=== PATIENT | male | born 1980 | race Caucasian/White ===

== ENCOUNTER 2022-10-14 10:53 | Emergency (ER) | payer MEDICARE, SELFPAY ==
[2022-10-14] VITALS (22 sets, daily range): BP systolic 125–164; BP diastolic 86–106; PULSE 88–104; RESP 20; TEMP 36.2; O2SAT 88–94; BMI 32.1
--- NOTE | 2022-10-14 11:33 | CRLHL7_ITS ---
For Patients: As a result of the Century Cures Act, medical imaging exams and procedure reports are released immediately into your electronic medical record. You may view this report before your referring provider. If you have questions, please contact your health care provider. INDICATION: Abdominal pain. TECHNIQUE: CT abdomen and pelvis acquired with 98 cc Isovue 370 IV contrast. COMPARISON: None. FINDINGS: Lower chest: Bibasilar ground-glass opacities, may reflect atelectasis, aspiration or infection. Trace bilateral pleural effusions. Liver: Hepatomegaly and hepatic steatosis. Mild sparing along the gallbladder fossa. No suspicious hepatic lesions identified. Gallbladder and bile ducts: Unremarkable. No stones or inflammation. No biliary dilatation. Pancreas: Unremarkable. No mass or inflammation. Spleen: Unremarkable. Normal in size. No masses. Adrenal glands: Unremarkable. No nodules. Kidneys: Unremarkable. No suspicious masses, stones, or hydronephrosis. GI tract: There is mild twisting and narrowing of a few small-bowel loops in the mid abdomen which may represent a site of internal hernia or adhesions. No bowel obstruction identified. Appendix is not visualized. Vasculature: Abdominal aorta is normal in caliber. Mesenteric arteries are patent. Lymph nodes: No lymphadenopathy. Peritoneum/Abdominal Wall: Small free fluid in the pelvis. No sign of mass or infiltration. No free air. Pelvis: Apparent thickening of the bladder wall, may be related to incomplete distention. Correlate with UA. Bones: Unremarkable for age. IMPRESSION: No acute intra-abdominal process identified. Mild twisting and narrowing of a few small-bowel loops in the mid abdomen may represent a site of internal hernia or adhesions. No bowel obstruction. Hepatomegaly with hepatic steatosis. Bibasilar ground-glass opacities may reflect atelectasis, aspiration or infection. Trace bilateral pleural effusions. Apparent thickening of the bladder wall may be related to incomplete distention. Correlate with UA. Please note that all CT scans at this facility use dose modulation, iterative reconstruction, and/or weight-based dosing when appropriate to reduce radiation dose to as low as reasonably achievable. Dictated by Emilia Rebolledo MD @ 10/14/2022 1:21:13 PM (Electronically Signed)
--- NOTE | 2022-10-14 11:35 | ED_ITS ---
HPI - Abdominal Pain General Chief Complaint: Abdominal Pain Stated Complaint: Abdominal pain Time Seen by Provider: 10/14/22 11:25 History of Present Illness HPI narrative: This 42-year-old male comes in with his father reporting abdominal pain that began yesterday. The pain is located in the mid abdomen and is constant. The pain was worse with movement and the bumps on the way here in the car were especially discomforting. He does not report any nausea or vomiting. He has had his appendix removed. He has autism. He has not had any fevers. Related Data Home Medications Medication Instructions Recorded Confirmed divalproex 500 mg tablet,extended 500 mg PO DAILY 10/14/22 10/14/22 release 24 hr fluvoxamine 100 mg tablet 150 mg PO BID 10/14/22 10/14/22 gabapentin 600 mg tablet 600 mg PO DAILY 10/14/22 10/14/22 lorazepam 1 mg tablet 1 mg PO PRN 10/14/22 risperidone 4 mg tablet 4 mg PO BID 10/14/22 10/14/22 Previous Rx's Medication Instructions Recorded ketorolac 10 mg tablet 10 mg PO Q8H 5 days #15 tabs 10/14/22 ondansetron HCl 4 mg tablet 4 mg PO Q6H #10 tabs 10/14/22 Allergies Allergy/AdvReac Type Severity Reaction Status Date / Time No Known Drug Allergies Allergy Verified 10/14/22 11:08 Review of Systems Status of ROS Reports: 10 or more systems reviewed and unremarkable except as noted in History and below Narrative Constitutional: No fevers, no weight gain or loss. Eyes: No discharge. No vision changes. HENT: No congestion, no sore throat, no ear pain. Cardiovascular: No chest pain, no palpitations. Respiratory: No shortness of breath, no wheezes, no cough. Gastrointestinal: No vomiting, no diarrhea. Mid abdominal pain which is constant and worse with movement. Genitourinary: No dysuria, no hematuria. Musculoskeletal: Normal range of motion. Skin: No rashes, no pruritis. Neurological: No dizziness, weakness, sensory change, speech change. Endo/Heme/Allergies: No bruising or bleeding. No polydipsia. Pysch: no suicidality, no anxiety, no insomnia. All other systems reviewed and are negative. PFSH PFSH Social History Smoking Status: Never smoker Do you use any of these nicotine containing products: None Second hand tobacco smoke exposure: No How often do you have a drink containing alcohol: never How often do you have six or more drinks on one occasion: Never AUDIT-C Alcohol total score: 0 Non-prescribed substance use: denies use service: No Exam Narrative: Exam Narrative: Constitutional: Well-developed, well-nourished, no acute distress. HEENT: Normocephalic, atraumatic. Neck: Normal range of motion. Nontender. Supple. Heart: Regular. No murmurs. Normal rate. Intact distal pulses. Lungs: Clear to auscultation. No chest discomfort. No wheezes, rhonchi, or rales. Abdomen: Decreased bowel sounds. Diffuse tenderness in the mid abdomen. No obvious rebound tenderness. Genitalia: Deferred. Back: No midline tenderness. Normal range of motion. Extremities: Normal range of motion. No injury. Skin: Intact. No rash. Warm. No erythema or pallor. Neurologic: No altered sensation. No weakness. Alert and oriented. Psychiatric: No suicidality. No anxiety or depression. No insomnia. Nursing notes and vitals signs are reviewed. Const: Vital Signs, click to edit/add: Vital Signs - 24 hr 10/14/22 11:04 10/14/22 11:53 10/14/22 11:53 Temperature 97.2 F L Pulse Rate [Right Pulse Oximeter] 104 H Respiratory Rate 20 Blood Pressure [Ri ght Upper Arm] 143/90 H Pulse Oximetry 93 89 89 Oxygen Delivery Me thod Room Air Room Air Oxygen Flow Rate 2 Course Vital Signs Vital signs: Initial Vital Signs Temperature 97.2 F L 10/14/22 11:04 Temperature Source Temporal Artery Scan 10/14/22 11:04 Pulse Rate 104 H 10/14/22 11:04 Respiratory Rate 20 10/14/22 11:04 Blood Pressure 143/90 H 10/14/22 11:04 Blood Pressure Mean 107 10/14/22 11:04 Blood Pressure Position Sitting 10/14/22 11:04 Pulse Oximetry 93 10/14/22 11:04 Oxygen Delivery Method 10/14/22 11:04 Vital Signs Temperature 97.2 F L 10/14/22 11:04 Pulse Rate 104 H 10/14/22 11:04 Respiratory Rate 20 10/14/22 11:04 Blood Pressure 143/90 H 10/14/22 11:04 Pulse Oximetry 93 10/14/22 11:04 Oxygen Delivery Method 10/14/22 11:04 Temperature 97.2 F L 10/14/22 11:04 Pulse Rate 104 H 10/14/22 11:04 Respiratory Rate 20 10/14/22 11:04 Blood Pressure 143/90 H 10/14/22 11:04 Pulse Oximetry 89 10/14/22 11:53 Oxygen Delivery Method 10/14/22 11:53 Oxygen Flow Rate 2 10/14/22 11:53 MDM - Abdominal Pain MDM Narrative Medical decision making narrative: This 42-year-old comes in with abdominal pain. He did appear to be in significant discomfort. An IV was established where the patient did receive an IV dose of Dilaudid 0.5 mg. This brought some relief to his pain. CT imaging of the abdomen and pelvis shows no acute findings except there is gaseous distension of his bowels in the mid abdomen where he is describing his pain. Radiology report suggested possibility of an internal hernia. I did discuss this with the surgeon on-call who stated this does not seem likely. The patient has had a surgery to his abdomen, namely an appendectomy. He may be having some adhesions related to this. At the time of discharge the patient appears safe for outpatient management. The treatment plan is reviewed along with written and verbal return precautions. Reasons to return and the importance of close followup were also reviewed. I recommended using [id number] medicines to stimulate his bowels to move. He did received prescription for Toradol and Zofran. Lab Data Labs: Lab Results 10/14/22 10/14/22 Range/Units 11:25 11:25 WBC 10.53 (4.50-11.00) K/uL RBC 4.58 (4.30-5.90) m/uL Hgb 13.4 L (13.5-17.5) gm/dL Hct 38.8 (37.0-53.0) % MCV 85 (80-100) fL MCH 29 (26-34) pg MCHC 35 (32-36) gm/dL RDW Coeff of Noe 12.7 (11.5-15.5) % Plt Count 216 (140-440) K/uL Neut % (Auto) 77.2 H (42.0-72.0) % Lymph % (Auto) 9.1 L (20-44) % [place] % (Auto) 13.0 H (0.0-11.0) % Eos % (Auto) 0.3 (0.0-7.0) % Baso % (Auto) 0.3 (0.0-3.0) % Neut # (Auto) 8.10 H (1.7-7.0) K/uL Lymph # (Auto) 1.00 (0.90-2.90) K/uL [place] # (Auto) 1.40 H (0.00-0.90) K/UL Eos # (Auto) 0.03 (0.00-0.50) K/uL Baso # (Auto) 0.03 (0.00-0.30) K/uL Sodium 135 (135-149) mmol/L Potassium 4.3 (3.6-5.1) mmol/L Chloride 98 (96-114) mmol/L Carbon Dioxide 27 (20-32) mmol/L BUN 10 (5-24) mg/dL Creatinine 0.6 (0.5-1.5) mg/dL Estimated Creat Clear 169.08 Estimated GFR 123 ml/min Glucose 202 H (60-115) mg/dL Calcium 9.4 (8.4-10.6) mg/dL Total Bilirubin 0.6 (0.1-1.5) mg/dL Direct Bilirubin 0.2 (0.0-0.5) mg/dL AST 24 (12-35) U/L ALT 31 (4-50) U/L Alkaline Phosphatase 52 (40-150) U/L Total Protein 8.1 (6.0-8.3) g/dL Albumin 4.6 (3.3-5.0) g/dL Lipase 67 (23-300) U/L Imaging Data CT scan - abdomen: Radiologist's impression: No acute intra-abdominal process identified. Mild twisting and narrowing of a few small-bowel loops in the mid abdomen may represent a site of internal hernia or adhesions. No bowel obstruction. Hepatomegaly with hepatic steatosis. Bibasilar ground-glass opacities may reflect atelectasis, aspiration or infection. Trace bilateral pleural effusions. Apparent thickening of the bladder wall may be related to incomplete distention. Correlate with UA. Discharge Plan Discharge Clinical Impression: Abdominal pain Patient Disposition: Home w/ Parent or Adult Condition: Stable Additional Instructions: Take medication as needed and indicated. Use [id number] medicines such as Dulcolax, MiraLax, Metamucil, or other meds to promote bowel movement. Follow up with MD or return if worsening. Prescriptions: New ondansetron HCl 4 mg tablet 4 mg PO Q6H Qty: 10 0RF ketorolac 10 mg tablet 10 mg PO Q8H 5 Days Qty: 15 0RF No Action risperidone 4 mg tablet 4 mg PO BID Label Comments: TAKE ONE TABLET BY MOUTH TWICE DAILY lorazepam 1 mg tablet 1 mg PO PRN Label Comments: TAKE ONE TABLET BY MOUTH DAILY NEEDED gabapentin 600 mg tablet 600 mg PO DAILY Label Comments: TAKE ONE TABLET BY MOUTH ONE TIME DAILY fluvoxamine 100 mg tablet 150 mg PO BID Label Comments: take 1.5 tablets by mouth twice daily. divalproex 500 mg tablet extended release 24 hr 500 mg PO DAILY Label Comments: TAKE TWO TABLETS BY MOUTH DAILY IN THE MORNING Follow Up/Referrals: Jass La MD [Primary Care Provider] - Stand Alone Forms: [employer] Info Instructions
[2022-10-14 11:44] LABS: Basophils Absolute Auto 0.03 K/uL (0.00-0.30); Basophils Percent Auto 0.3 % (0.0-3.0); Eosinophils Absolute Auto 0.03 K/uL (0.00-0.50); Eosinophils Percent Auto 0.3 % (0.0-7.0); Hematocrit 38.8 % (37.0-53.0); Hemoglobin* 13.4 gm/dL (13.5-17.5); Immature Granulocytes Abs Auto 0.01 K/uL (0.00-0.30); Immature Granulocytes Pct Auto 0.1 %; Lymphocytes Percent Auto 9.1 % (20-44); Mean Corpuscular HGB Conc 35 gm/dL (32-36); Mean Corpuscular Hemoglobin 29 pg (26-34); Mean Corpuscular Volume 85 fL (80-100); Neutrophils Percent Auto 77.2 % (42.0-72.0); Platelet Count* 216 K/uL (140-440); RDW Coefficient of Variation % 12.7 % (11.5-15.5); Red Blood Count 4.58 m/uL (4.30-5.90); White Blood Count* 10.53 K/uL (4.50-11.00)
[2022-10-14] MEDS: ONDANSETRON 2 MG/ML inj 4 MG IVP (11:50)
[2022-10-14] MEDS: HYDROmorphone 0.5 mg/0.5 ml inj IVP (11:50)
[2022-10-14 12:00] LABS: Albumin* 4.6 g/dL (3.3-5.0); Chloride* 98 mmol/L (96-114)
[2022-10-14 12:01] LABS: Potassium* 4.3 mmol/L (3.6-5.1); Sodium* 135 mmol/L (135-149)
[2022-10-14 12:03] LABS: Alkaline Phosphatase* 52 U/L (40-150); Aspartate Amino Transferase* 24 U/L (12-35); Bilirubin Direct* 0.2 mg/dL (0.0-0.5); Bilirubin Total* 0.6 mg/dL (0.1-1.5); Blood Urea Nitrogen* 10 mg/dL (5-24); Calcium* 9.4 mg/dL (8.4-10.6); Carbon Dioxide* 27 mmol/L (20-32); Creatinine* 0.6 mg/dL (0.5-1.5); Est. Creatinine Clearance* 169.08; Estimated Glomerular Filt Rate 123 ml/min; Glucose* 202 mg/dL (60-115); Lipase* 67 U/L (23-300); Total Protein* 8.1 g/dL (6.0-8.3)
[2022-10-14 12:04] LABS: Alanine Aminotransferase* 31 U/L (4-50)
[2022-10-14 12:14] LABS: Slide Review Reflex No
== END 2022-10-14 14:38 | disposition home or self-care (01) ==
PROVIDERS: Emergency Provider Emergency Medicine Emergency Medical Services; PCP Family Medicine
DX: R10.9 Unspecified abdominal pain (principal)
CPT/HCPCS: 36415; 74177; 80048; 80076; 83690; 85025; 94761; 99284; J1170; J2405; Q9967

== ENCOUNTER 2022-10-15 19:39 | Inpatient (IN) | payer MEDICARE, SELFPAY ==
[2022-10-15] VITALS (8 sets, daily range): BP systolic 142–180; BP diastolic 78–107; PULSE 84–114; RESP 24–30; TEMP 36.8–36.9; O2SAT 87–96; BMI 31.4
--- NOTE | 2022-10-15 20:09 | CRLHL7_ITS ---
For Patients: As a result of the Century Cures Act, medical imaging exams and procedure reports are released immediately into your electronic medical record. You may view this report before your referring provider. If you have questions, please contact your health care provider. INDICATION: Hypoxia, distended abdomen. TECHNIQUE: CT chest PE, abdomen and pelvis acquired with 95 cc Isovue 370 IV contrast. COMPARISON: CT abdomen and pelvis 10/14/2022. FINDINGS: CHEST: Cardiovascular structures: Heart size is normal. Thoracic aorta and main pulmonary artery are normal in caliber. No sign of pulmonary embolism. Mediastinum and alexey: No mass or adenopathy. Lungs and pleura: Trace bilateral pleural effusions. Bibasilar streaky opacities, favored to represent atelectasis. Chest wall and axilla: No mass or adenopathy. Bones: No suspicious bone lesions. Unremarkable for age. ABDOMEN AND PELVIS: Liver: Hepatomegaly with hepatic steatosis. Gallbladder and bile ducts: Unremarkable. Pancreas: Unremarkable. Spleen: Unremarkable. Adrenal glands: Unremarkable. Kidneys: Unremarkable. GI tract: Unremarkable. Vascular structures: Unremarkable. Lymph nodes: Unremarkable. Miscellaneous: Trace free fluid in the pelvis. No free air. Pelvic Organs: Unremarkable. Bones: No suspicious bone lesions. Unremarkable for age. IMPRESSION: 1. No evidence of pulmonary embolism. 2. Trace bilateral pleural effusions and bibasilar atelectasis. 3. No acute abnormality of the abdomen or pelvis. Please note that all CT scans at this facility use dose modulation, iterative reconstruction, and/or weight-based dosing when appropriate to reduce radiation dose to as low as reasonably achievable. Dictated by Jeremiah Finch MD @ 10/15/2022 10:03:09 PM (Electronically Signed)
--- NOTE | 2022-10-15 20:11 | PC.NURSE ---
pt having difficulty breathing through nares for nasal cannula. oxymask on, pt tolerating well. sats up to 92%
--- NOTE | 2022-10-15 20:26 | ED.GENADULT ---
HPI - General Adult General Date Seen: 10/15/22 Chief complaint: Fever Stated complaint: Low O2 level and fever Time Seen by Provider: 10/15/22 19:59 Source: patient and family Mode of arrival: ambulatory Limitations: no limitations History of Present Illness HPI narrative: Patient is a 42-year-old male with underlying autism here with mother for re-evaluation of abdominal distension, pain, and hypoxia. He was seen yesterday, had a CT scan, there was a question of possible internal hernia, consultation with General surgery, felt likely not to be a hernia and he was discharged home. He was mildly hypoxic yesterday in the upper 80s, Mom says he is worsening today and was 83% at home. He is verbal, but significant paucity of speech. He does answer questions appropriately although it is difficult to talk to him as mother tends to interrupt and answer all questions for him. However, if I am decisive about forcing her to let him answer questions, he seems to complain of mid and upper abdominal pain, he does not have chest pain and has not been coughing. He does not feel significantly short of breath. He denies leg pain. He has not had vomiting, but has not wanted to eat. Mom notes of fever up to 101.6 at home earlier. She notes also that he has a very high pain threshold. He has had a previous appendectomy, no other abdominal surgeries reported. Related Data Home Medications Medication Instructions Recorded Confirmed divalproex 500 mg tablet,extended 500 mg PO DAILY 10/14/22 10/15/22 release 24 hr fluvoxamine 100 mg tablet 150 mg PO BID 10/14/22 10/15/22 gabapentin 600 mg tablet 600 mg PO DAILY 10/14/22 10/15/22 lorazepam 1 mg tablet 1 mg PO DAILY PRN 10/14/22 10/15/22 risperidone 4 mg tablet 4 mg PO BID 10/14/22 10/15/22 Previous Rx's Medication Instructions Recorded ketorolac 10 mg tablet 10 mg PO Q8H 5 days #15 tabs 10/14/22 ondansetron HCl 4 mg tablet 4 mg PO Q6H #10 tabs 10/14/22 Allergies Allergy/AdvReac Type Severity Reaction Status Date / Time No Known Drug Allergies Allergy Verified 10/15/22 19:51 Review of Systems Status of ROS: Reports: 6 or more systems reviewed and unremarkable except as noted in History and below [facility] Social History Smoking Status: Never smoker Do you use any of these nicotine containing products: None Second hand tobacco smoke exposure: No How often do you have a drink containing alcohol: never How often do you have six or more drinks on one occasion: Never AUDIT-C Alcohol total score: 0 Non-prescribed substance use: denies use service: No Exam Narrative: Exam Narrative: Vital signs as noted above. In general, an alert, slightly diaphoretic male. Head: Normocephalic, atraumatic. Eyes: Pupils are equal reactive. Extraocular movements are full. Conjunctivae are normal. ENT: Mucous membranes are moist. Neck: Supple without lymphadenopathy. Heart: Tachycardic and regular. No obvious murmur. Lungs: Clear anteriorly, he did not feel he could sit up for me to listen in the back. No increased work of breathing. Abdomen: Abdomen is distended. Soft, bowel sounds are present. He winces with palpation in the epigastrium and left upper quadrant, confirms that it is painful there. Denies tenderness in the other areas of the abdomen. No guarding, no apparent rebound tenderness. Extremities: Well perfused. No edema. No calf tenderness. Pulses intact. Neurologic: Patient is alert and oriented to person and place. Speech is fluent. Face is symmetric. Moves all extremities equally. Affect: Flat, consistent with autism. Skin: Warm and dry. Well perfused. Const: Vital Signs, click to edit/add: Vital Signs - 24 hr 10/15/22 19:45 10/15/22 20:30 10/15/22 20:30 Temperature 98.2 F Pulse Rate [Right Pulse Oximeter] 114 H Respiratory Rate 28 H Blood Pressure [Ri ght Upper Arm] 151/90 H Pulse Oximetry 87 L 92 93 Oxygen Delivery Me thod Room Air OxyMask Oxygen Flow Rate 10 10/15/22 20:45 10/15/22 21:00 10/15/22 21:26 Temperature 98.4 F 98.4 F Pulse Rate [Right Pulse Oximeter] 89 89 90 Respiratory Rate 24 28 H 26 H Blood Pressure [Ri ght Upper Arm] 153/88 H 153/90 H 142/78 H Pulse Oximetry 93 93 93 Oxygen Delivery Me thod OxyMask OxyMask OxyMask Oxygen Flow Rate 10 10 10/15/22 20:30 10/15/22 22:52 Temperature 98.4 F Pulse Rate [Right Pulse Oximeter] 98 Respiratory Rate 30 H Blood Pressure [Ri ght Upper Arm] 180/87 H Pulse Oximetry 88 93 Oxygen Delivery Me thod Room Air OxyMask Oxygen Flow Rate Documenting provider has reviewed patient's vital signs: yes Course Course Hospital Course: An IV is established, I have ordered a L of normal saline, morphine, Toradol. Records reviewed from yesterday including the CT scan. I am going to do a CT scan of both the chest as well as the abdomen today to reassess the area of questionable internal hernia from yesterday, rule out obstruction, other possible etiologies such as diverticulitis, colitis, cholecystitis, pancreatitis, perforated viscus, as well as assess the lungs. It may be that he is hypoxic secondary to pressure on the diaphragm limiting his chest expansion, but will go ahead and assess those areas of ground-glass infiltrate, rule out PE or any other cause for his rather significant hypoxia today. Labs are interestingly very normal. His white blood cell count is 10.2 with a mild left shift of 81%. Hemoglobin is 12.8. Platelets are normal. His gas shows a pH of 7 point 4 5, pCO2 is normal today at 44, R was 30. Electrolytes are unremarkable aside from a mildly low sodium of 132. CO2 is normal at 29, BUN is 11, creatinine 0.7. Glucose is 167. Lactate is normal at 1.1. His CRP is significantly elevated at 22. LFTs are entirely normal however. Troponin is less than 0.1. BNP is normal at 129. Lipase is normal at 41. Urinalysis was not obtained until quite a bit later but did ultimately returned essentially normal with 5-10 red cells 0-2 white cells. No significant ketones. I reviewed the CT scan of his chest, abdomen and pelvis. I did not see any significant findings. He did have a little bit of atelectasis, fluid at the bases of both lungs, but I did not see any significant lobar pneumonia. I did not see evidence of significant central PE. In the abdomen I did not see evidence of obstruction or free air, the gallbladder looked normal, I did not see significant inflammatory changes. Ultimately the chest CT was read as showing no evidence of PE, trace bilateral pleural effusions and bibasilar atelectasis. The abdominal CT was read as no acute abnormality of the abdomen or pelvis. The previously seen possible area of internal hernia is no longer observed. Repeat evaluation reveals that after medications he says his abdomen feels better. He is oxygenating well on an OxyMask, but off oxygen continues to be hypoxic. His lungs are clear, but he is noted to have some belly breathing. I talked with Dr. Au about this patient who was able to review previous records. He did have an admission to [facility] last year and had hypoxia at that time noted and there was conversation about needing possible CPAP or BiPAP at home, he did have an echo done which was normal. Sleep study was recommended but it does not sound like that was ever done. Mom says he does not typically have hypoxia during the day at home, that today's hypoxia is new. Etiology of the hypoxia is a little unclear. We have successfully ruled out PE, pneumonia, congestive heart failure, acute coronary syndrome. I do not hear significant bronchospasm. It does appear as if he may have some obesity hypoventilation at bases in line and perhaps that is contributing. It may be that he is hypoventilating further due to splinting from his abdominal pain. His last bowel movement was Friday, they did tried some medications for constipation yesterday and he did not have a bowel movement, but he has not had much to eat, and on CT it does not look like he has a significant stool burden. I do not think his symptoms are related to constipation. It is possible that he has gastritis or an ulcer, it is also possible that this could be biliary colic and a HIDA scan would be helpful. For right now, he continues to look somewhat uncomfortable despite the fact that he says his pain is relieved. His abdomen right now is nontender however. We got him up to try and ambulate, his oxygen saturations were stable at about 86% but he became tachycardic and shaky and had to sit down. Plan at this time is to admit him to the hospital for observation, oxygen as needed, I ordered some Protonix IV as well. We will see what additional GI studies might be helpful for further evaluation of his abdominal pain. Vital Signs Vital signs: Initial Vital Signs Temperature 98.2 F 10/15/22 19:45 Temperature Source Temporal Artery Scan 03/07/23 19:45 Pulse Rate 114 H 10/15/22 19:45 Respiratory Rate 28 H 10/15/22 19:45 Blood Pressure 151/90 H 10/15/22 19:45 Blood Pressure Mean 110 10/15/22 19:45 Blood Pressure Position Sitting 10/15/22 19:45 Pulse Oximetry 87 L 10/15/22 19:45 Oxygen Delivery Method 10/15/22 19:45 Vital Signs Temperature 98.2 F 10/15/22 19:45 Pulse Rate 114 H 10/15/22 19:45 Respiratory Rate 28 H 10/15/22 19:45 Blood Pressure 151/90 H 10/15/22 19:45 Pulse Oximetry 87 L 10/15/22 19:45 Oxygen Delivery Method 10/15/22 19:45 Temperature 98.4 F 10/15/22 22:52 Pulse Rate 98 10/15/22 22:52 Respiratory Rate 30 H 10/15/22 22:52 Blood Pressure 180/87 H 10/15/22 22:52 Pulse Oximetry 93 10/15/22 22:52 Oxygen Delivery Method 10/15/22 22:52 Oxygen Flow Rate 10 10/15/22 21:00 Medical Decision Making Lab Data Labs: Lab Results 10/15/22 10/15/22 10/15/22 Range/Units 20:30 20:30 20:30 WBC 10.23 (4.50-11.00) K/uL RBC 4.38 (4.30-5.90) m/uL Hgb 12.8 L (13.5-17.5) gm/dL Hct 37.2 (37.0-53.0) % MCV 85 (80-100) fL MCH 29 (26-34) pg MCHC 34 (32-36) gm/dL RDW Coeff of Noe 12.8 (11.5-15.5) % Plt Count 217 (140-440) K/uL Neut % (Auto) 80.7 H (42.0-72.0) % Lymph % (Auto) 4.8 L (20-44) % Moody % (Auto) 13.9 H (0.0-11.0) % Eos % (Auto) 0.0 (0.0-7.0) % Baso % (Auto) 0.2 (0.0-3.0) % Neut # (Auto) 8.30 H (1.7-7.0) K/uL Lymph # (Auto) 0.50 L (0.90-2.90) K/uL Moody # (Auto) 1.40 H (0.00-0.90) K/UL Eos # (Auto) 0.00 (0.00-0.50) K/uL Baso # (Auto) 0.02 (0.00-0.30) K/uL VBG pH (7.32-7.43) VBG pCO2 (40-50) mmHG VBG pO2 (25-47) mmHG VBG HCO3 (21-28) mmol/L Sodium 132 L (135-149) mmol/L Potassium 3.8 (3.6-5.1) mmol/L Chloride 97 (96-114) mmol/L Carbon Dioxide 29 (20-32) mmol/L BUN 11 (5-24) mg/dL Creatinine 0.7 (0.5-1.5) mg/dL Estimated Creat Clear 144.92 Estimated GFR 117 ml/min Glucose 167 H (60-115) mg/dL Lactate 1.1 (0.5-1.9) mmol/L Calcium 9.1 (8.4-10.6) mg/dL Total Bilirubin 0.7 (0.1-1.5) mg/dL Direct Bilirubin 0.2 (0.0-0.5) mg/dL AST 29 (12-35) U/L ALT 35 (4-50) U/L Alkaline Phosphatase 56 (40-150) U/L Troponin I (0.01-0.04) ng/mL C-Reactive Protein 22.5 H (0.5-1.0) mg/dL NT-Pro-B Natriuret Pep 129 pg/mL Total Protein 7.8 (6.0-8.3) g/dL Albumin 4.2 (3.3-5.0) g/dL Lipase 41 (23-300) U/L Urine Color (Yellow) Urine Appearance (Clear) Urine pH (5.0-8.5) Ur Specific Marrero (1.000-1.030) Urine Protein (Negative) Urine Glucose (UA) (Negative) Urine Ketones (Negative) Urine Blood (Negative) Urine Nitrite (Negative) Urine Bilirubin (Negative) Urine Urobilinogen (0.2-1.0) Ur Leukocyte Esterase (Negative) Urine RBC (0-2) Urine WBC (0-5) Ur Squamous Epith Cells (None-Few) Urine Bacteria (None) SARS-CoV-2 (PCR) (Negative) 10/15/22 10/15/22 10/15/22 Range/Units 20:30 20:30 20:35 WBC (4.50-11.00) K/uL RBC (4.30-5.90) m/uL Hgb (13.5-17.5) gm/dL Hct (37.0-53.0) % MCV (80-100) fL MCH (26-34) pg MCHC (32-36) gm/dL RDW Coeff of Noe (11.5-15.5) % Plt Count (140-440) K/uL Neut % (Auto) (42.0-72.0) % Lymph % (Auto) (20-44) % Moody % (Auto) (0.0-11.0) % Eos % (Auto) (0.0-7.0) % Baso % (Auto) (0.0-3.0) % Neut # (Auto) (1.7-7.0) K/uL Lymph # (Auto) (0.90-2.90) K/uL Moody # (Auto) (0.00-0.90) K/UL Eos # (Auto) (0.00-0.50) K/uL Baso # (Auto) (0.00-0.30) K/uL VBG pH 7.447 H (7.32-7.43) VBG pCO2 44 (40-50) mmHG VBG pO2 59.1 H (25-47) mmHG VBG HCO3 30 H (21-28) mmol/L Sodium (135-149) mmol/L Potassium (3.6-5.1) mmol/L Chloride (96-114) mmol/L Carbon Dioxide (20-32) mmol/L BUN (5-24) mg/dL Creatinine (0.5-1.5) mg/dL Estimated Creat Clear Estimated GFR ml/min Glucose (60-115) mg/dL Lactate (0.5-1.9) mmol/L Calcium (8.4-10.6) mg/dL Total Bilirubin (0.1-1.5) mg/dL Direct Bilirubin (0.0-0.5) mg/dL AST (12-35) U/L ALT (4-50) U/L Alkaline Phosphatase (40-150) U/L Troponin I < 0.01 L (0.01-0.04) ng/mL C-Reactive Protein (0.5-1.0) mg/dL NT-Pro-B Natriuret Pep pg/mL Total Protein (6.0-8.3) g/dL Albumin (3.3-5.0) g/dL Lipase (23-300) U/L Urine Color (Yellow) Urine Appearance (Clear) Urine pH (5.0-8.5) Ur Specific Marrero (1.000-1.030) Urine Protein (Negative) Urine Glucose (UA) (Negative) Urine Ketones (Negative) Urine Blood (Negative) Urine Nitrite (Negative) Urine Bilirubin (Negative) Urine Urobilinogen (0.2-1.0) Ur Leukocyte Esterase (Negative) Urine RBC (0-2) Urine WBC (0-5) Ur Squamous Epith Cells (None-Few) Urine Bacteria (None) SARS-CoV-2 (PCR) Negative SARS-CoV-2 (Negative) 10/15/22 Range/Units 22:23 WBC (4.50-11.00) K/uL RBC (4.30-5.90) m/uL Hgb (13.5-17.5) gm/dL Hct (37.0-53.0) % MCV (80-100) fL MCH (26-34) pg MCHC (32-36) gm/dL RDW Coeff of Noe (11.5-15.5) % Plt Count (140-440) K/uL Neut % (Auto) (42.0-72.0) % Lymph % (Auto) (20-44) % Moody % (Auto) (0.0-11.0) % Eos % (Auto) (0.0-7.0) % Baso % (Auto) (0.0-3.0) % Neut # (Auto) (1.7-7.0) K/uL Lymph # (Auto) (0.90-2.90) K/uL Moody # (Auto) (0.00-0.90) K/UL Eos # (Auto) (0.00-0.50) K/uL Baso # (Auto) (0.00-0.30) K/uL VBG pH (7.32-7.43) VBG pCO2 (40-50) mmHG VBG pO2 (25-47) mmHG VBG HCO3 (21-28) mmol/L Sodium (135-149) mmol/L Potassium (3.6-5.1) mmol/L Chloride (96-114) mmol/L Carbon Dioxide (20-32) mmol/L BUN (5-24) mg/dL Creatinine (0.5-1.5) mg/dL Estimated Creat Clear Estimated GFR ml/min Glucose (60-115) mg/dL Lactate (0.5-1.9) mmol/L Calcium (8.4-10.6) mg/dL Total Bilirubin (0.1-1.5) mg/dL Direct Bilirubin (0.0-0.5) mg/dL AST (12-35) U/L ALT (4-50) U/L Alkaline Phosphatase (40-150) U/L Troponin I (0.01-0.04) ng/mL C-Reactive Protein (0.5-1.0) mg/dL NT-Pro-B Natriuret Pep pg/mL Total Protein (6.0-8.3) g/dL Albumin (3.3-5.0) g/dL Lipase (23-300) U/L Urine Color Yellow (Yellow) Urine Appearance Slightly Cloudy A (Clear) Urine pH 6.0 (5.0-8.5) Ur Specific Marrero 1.010 (1.000-1.030) Urine Protein 1+ A (Negative) Urine Glucose (UA) Negative (Negative) Urine Ketones Negative (Negative) Urine Blood 2+ A (Negative) Urine Nitrite Negative (Negative) Urine Bilirubin Negative (Negative) Urine Urobilinogen 1.0 (0.2-1.0) Ur Leukocyte Esterase Negative (Negative) Urine RBC 5-10 A (0-2) Urine WBC 0-2 (0-5) Ur Squamous Epith Cells Few (None-Few) Urine Bacteria None (None) SARS-CoV-2 (PCR) (Negative) Discharge Plan Discharge Clinical Impression: Hypoxia, Abdominal pain Patient Disposition: Admitted As Inpatient Condition: Improved
[2022-10-15] MEDS: 0.9 % SODIUM CHLORIDE 1000 ml 1,000 ML IV (20:35)
[2022-10-15] MEDS: KETOROLAC 15 MG/ML inj IVP (20:35)
[2022-10-15] MEDS: MORPHINE 4 MG/ML INJ IVP (20:35)
[2022-10-15 20:45] LABS: HCO3 VBG 30 mmol/L (21-28); PCO2 VBG 44 mmHG (40-50); PO2 VBG 59.1 mmHG (25-47); pH VBG 7.447 (7.32-7.43)
[2022-10-15 20:46] LABS: Basophils Absolute Auto 0.02 K/uL (0.00-0.30); Basophils Percent Auto 0.2 % (0.0-3.0); Hematocrit 37.2 % (37.0-53.0); Hemoglobin* 12.8 gm/dL (13.5-17.5); Immature Granulocytes Abs Auto 0.04 K/uL (0.00-0.30); Immature Granulocytes Pct Auto 0.4 %; Lymphocytes Percent Auto 4.8 % (20-44); Mean Corpuscular HGB Conc 34 gm/dL (32-36); Mean Corpuscular Hemoglobin 29 pg (26-34); Mean Corpuscular Volume 85 fL (80-100); Monocytes Percent Auto 13.9 % (0.0-11.0); Neutrophils Percent Auto 80.7 % (42.0-72.0); Platelet Count* 217 K/uL (140-440); RDW Coefficient of Variation % 12.8 % (11.5-15.5); Red Blood Count 4.38 m/uL (4.30-5.90); White Blood Count* 10.23 K/uL (4.50-11.00)
[2022-10-15 20:47] LABS: Lactate* 1.1 mmol/L (0.5-1.9)
[2022-10-15 20:48] LABS: Slide Review Reflex No
[2022-10-15 21:04] LABS: Albumin* 4.2 g/dL (3.3-5.0); Chloride* 97 mmol/L (96-114); Potassium* 3.8 mmol/L (3.6-5.1); Sodium* 132 mmol/L (135-149)
[2022-10-15 21:06] LABS: Creatinine* 0.7 mg/dL (0.5-1.5); Est. Creatinine Clearance* 144.92; Estimated Glomerular Filt Rate 117 ml/min
[2022-10-15 21:07] LABS: Alanine Aminotransferase* 35 U/L (4-50); Alkaline Phosphatase* 56 U/L (40-150); Aspartate Amino Transferase* 29 U/L (12-35); Bilirubin Direct* 0.2 mg/dL (0.0-0.5); Bilirubin Total* 0.7 mg/dL (0.1-1.5); Blood Urea Nitrogen* 11 mg/dL (5-24); Calcium* 9.1 mg/dL (8.4-10.6); Carbon Dioxide* 29 mmol/L (20-32); Glucose* 167 mg/dL (60-115); Lipase* 41 U/L (23-300); Total Protein* 7.8 g/dL (6.0-8.3)
[2022-10-15 21:18] LABS: NT Pro B Type NatriureticPept* 129 pg/mL
[2022-10-15 21:23] LABS: C Reactive Protein* 22.5 mg/dL (0.5-1.0)
[2022-10-15 21:24] LABS: SARS PCR* Negative SARS-CoV-2 (Negative)
--- NOTE | 2022-10-15 21:41 | PC.NURSE ---
Returned from CT, mother at bedside. temp recheck as pt diaphoretic was 98.4 oral.
--- NOTE | 2022-10-15 22:30 | PC.NURSE ---
urine sent to lab. pt resting, mother at bedside. pt denies pain currently, still tachypneic, resp rate 28. oxygen off per physician order. will reassess oxygen status while ambulating, pulse ox.will continue to monitor pt.
[2022-10-15 22:31] LABS: Appearance Urine Slightly Cloudy (Clear); Bilirubin Urine Negative (Negative); Blood Urine 2+ (Negative); Color Urine Yellow (Yellow); Glucose Urine Negative (Negative); Ketones Urine Negative (Negative); Leukocyte Esterase Urine Negative (Negative); Nitrite Urine Negative (Negative); Protein Urine 1+ (Negative)
[2022-10-15 22:42] LABS: Troponin I* < 0.01 ng/mL (0.01-0.04)
--- NOTE | 2022-10-15 22:50 | PC.NURSE ---
Addendum entered by Amanda Merrill RN 10/15/22 22:54: while up walking heart rate up to 118-120. Original Note: pt up to walk around ED off oxygen. Pulse ox began at 88% on room air, dropped to 85-86% while ambulating. Pt requested to sit, wheelchair back to room with oxygen per oxymask at 10L. Pt respiratory rate 40s. Once settled back into room, oxygen sats up to 93% on oxymask, respiratory rate continues to be in the 30s. physician informed.
[2022-10-15 22:51] LABS: Squamous Epithelial Cell Urine Few (None-Few); WBC Urine 0-2 (0-5)
--- NOTE | 2022-10-15 22:56 | PC.NURSE ---
pts mother states she is concerned as to plan of care, and when are we going to do something about his low oxygen? Physician informed, informed pts mother physician will be in soon to explain plan of care.
[2022-10-15] MEDS: PANTOPRAZOLE SODIUM 40 MG INJ IVP (23:07)
--- NOTE | 2022-10-15 23:13 | PC.NURSE ---
admitting physician in with pt and pts mother.
--- NOTE | 2022-10-15 23:20 | PM.IMHP1 ---
Hospitalist- H&P: HPI History of Present Illness Date Seen: 10/15/22 Chief complaint: Low O2 level and fever Narrative: Chavo Baca is a 42 year old male with autism and bipolar disorder admitted through the emergency department with 2 day history of abdominal pain and anorexia and a 1 day history of fever and hypoxia. Patient gives limited history. History is primarily obtained from his mother. On Friday he when out to dinner. After dinner he had a bowel movement which was apparently normal and then complained of right upper quadrant abdominal pain. Since that time he has continued to report right upper quadrant or epigastric abdominal pain intermittently. He has not been eating much in the last 2 days. Initially his vital signs, obtained by his mother, were normal. Today she noted his oxygen saturations were in the mid 80s and he was breathing harder and tachycardic. He had a temperature at home of 101.6 F. Because of that she brought him to the emergency room. He has not had any other respiratory symptoms. He has not had significant cough. He is not complaining of chest pain. He has no previous history of asthma. He does not smoke. No chronic lung disease. Prior to Friday he has not had any gastrointestinal symptoms or problems. He has a remote history of an appendectomy. He has not had vomiting or diarrhea. Apparently normal bowel movement on Friday and none since that time. He was seen in our emergency department yesterday with CT abdomen and pelvis which was normal. He is treated with laxatives which have not caused him to have another bowel movement. He has no urinary problems that he is reporting. He was hospitalized 1 year ago at [facility]. At that time he was having hypoxic and hypercapnic respiratory failure. Evaluation there raised questions about possible obesity hypoventilation and sleep apnea. He did have symptoms of her respiratory infection around that time as well. He was referred for outpatient sleep study. His parents have not pursued that further evaluation. He had a normal echocardiogram at that time and CT of the chest which was unremarkable except for small bilateral pleural effusions. Review of Systems Narrative: Review of systems is limited by communication difficulties but mother reports no other concerns except for those noted above. [facility] Medical History (Updated 10/15/22 @ 23:37 by Lavell Au MD) Autism Bipolar disorder Gout Obesity Obesity hypoventilation syndrome Obstructive sleep apnea OCD (obsessive compulsive disorder) Surgical History (Updated 10/15/22 @ 23:29 by Lavell Au MD) History of appendectomy Family History (Updated 10/15/22 @ 23:30 by Lavell Au MD) Father High cholesterol Social History (Updated 10/15/22 @ 23:31 by Lavell Au MD) Narrative: He lives with his parents. Limited verbal communication secondary to autism. Mother reports that he does have excessive eating and it is hard to control is oral intake. The lock the refrigerator. Smoking Status: Never smoker Do you use any of these nicotine containing products: None Second hand tobacco smoke exposure: No How often do you have a drink containing alcohol: never How often do you have six or more drinks on one occasion: Never AUDIT-C Alcohol total score: 0 Non-prescribed substance use: denies use service: No Meds Home Medications and Allergies Home Medications Medication Instructions Recorded Confirmed Type divalproex 500 mg tablet,extended 500 mg PO DAILY 10/14/22 10/15/22 History release 24 hr fluvoxamine 100 mg tablet 150 mg PO BID 10/14/22 10/15/22 History gabapentin 600 mg tablet 600 mg PO DAILY 10/14/22 10/15/22 History lorazepam 1 mg tablet 1 mg PO DAILY PRN 10/14/22 10/15/22 History risperidone 4 mg tablet 4 mg PO BID 10/14/22 10/15/22 History Allergies Allergy/AdvReac Type Severity Reaction Status Date / Time No Known Drug Allergies Allergy Verified 10/15/22 19:51 Exam Narrative: Exam Narrative: He is alert and appears in mild distress with increased rate and work of breathing. Using abdominal muscles to breathe. Eyes are normal. Oropharynx with small airway. Neck is supple without tenderness, mass or adenopathy. No stridor. Respirations clear to auscultation. No wheezing, rales, rhonchi. Good air exchange in all lung pool. Cardiovascular: S1, S2, regular rate and rhythm. No murmur gallop or rub. Abdomen: Bowel sounds active. Abdomen is soft without tenderness or mass. External genitalia normal. Extremities with intact pulses and sensation. No edema. He good capillary refill. He moves all 4 extremities well. Const: Vital Signs, click to edit/add: Vital Signs - 24 hr 10/15/22 19:45 10/15/22 20:30 10/15/22 20:30 Temperature 98.2 F Pulse Rate [Right Pulse Oximeter] 114 H Respiratory Rate 28 H Blood Pressure [Ri ght Upper Arm] 151/90 H Pulse Oximetry 87 L 92 93 Oxygen Delivery Me thod Room Air OxyMask Oxygen Flow Rate 10 10/15/22 20:45 10/15/22 21:00 10/15/22 21:26 Temperature 98.4 F 98.4 F Pulse Rate [Right Pulse Oximeter] 89 89 90 Respiratory Rate 24 28 H 26 H Blood Pressure [Ri ght Upper Arm] 153/88 H 153/90 H 142/78 H Pulse Oximetry 93 93 93 Oxygen Delivery Me thod OxyMask OxyMask OxyMask Oxygen Flow Rate 10 10 10/15/22 20:30 10/15/22 22:52 10/15/22 23:09 Temperature 98.4 F 98.5 F Pulse Rate [Right Pulse Oximeter] 98 84 Respiratory Rate 30 H 30 H Blood Pressure [Ri ght Upper Arm] 180/87 H 169/107 H Pulse Oximetry 88 93 96 Oxygen Delivery Me thod Room Air OxyMask OxyMask Oxygen Flow Rate 10 Documenting provider has reviewed patient's vital signs: yes Hospitalist - H&P: Result Labs Labs: Short CBC 10/15/22 Range/Units 20:30 WBC 10.23 (4.50-11.00) K/uL Hgb 12.8 L (13.5-17.5) gm/dL Hct 37.2 (37.0-53.0) % Plt Count 217 (140-440) K/uL BMP 10/15/22 20:30 Sodium 132 L Potassium 3.8 Chloride 97 Carbon Dioxide 29 BUN 11 Creatinine 0.7 Glucose 167 H Calcium 9.1 Cardiac Enzymes 10/15/22 Range/Units 20:30 Troponin I < 0.01 L (0.01-0.04) ng/mL Liver Function 10/15/22 Range/Units 20:30 Total Bilirubin 0.7 (0.1-1.5) mg/dL Direct Bilirubin 0.2 (0.0-0.5) mg/dL AST 29 (12-35) U/L ALT 35 (4-50) U/L Alkaline Phosphatase 56 (40-150) U/L Albumin 4.2 (3.3-5.0) g/dL Urine 03/07/23 Range/Units 22:23 Urine Color Yellow (Yellow) Urine Appearance Slightly Cloudy A (Clear) Urine pH 6.0 (5.0-8.5) Ur Specific [place] 1.010 (1.000-1.030) Urine Protein 1+ A (Negative) Urine Glucose (UA) Negative (Negative) Imaging CT Chest/Ab/Pelvis: Radiologist's impression: NDICATION: Hypoxia, distended abdomen. TECHNIQUE: CT chest PE, abdomen and pelvis acquired with 95 cc Isovue 370 IV contrast. COMPARISON: CT abdomen and pelvis 10/14/2022. FINDINGS: CHEST: Cardiovascular structures: Heart size is normal. Thoracic aorta and main pulmonary artery are normal in caliber. No sign of pulmonary embolism. Mediastinum and alexey: No mass or adenopathy.? Lungs and pleura: Trace bilateral pleural effusions. Bibasilar streaky opacities, favored to represent atelectasis. Chest wall and axilla: No mass or adenopathy.? Bones: No suspicious bone lesions.? Unremarkable for age.? ABDOMEN AND PELVIS: Liver: Hepatomegaly with hepatic steatosis. Gallbladder and bile ducts: Unremarkable.? Pancreas: Unremarkable.? Spleen: Unremarkable.? Adrenal glands: Unremarkable.? Kidneys: Unremarkable.? GI tract: Unremarkable.? Vascular structures: Unremarkable.? Lymph nodes: Unremarkable.? Miscellaneous: Trace free fluid in the pelvis. No free air. Pelvic Organs: Unremarkable.? Bones: No suspicious bone lesions.? Unremarkable for age.? IMPRESSION: 1. No evidence of pulmonary embolism. 2. Trace bilateral pleural effusions and bibasilar atelectasis. 3. No acute abnormality of the abdomen or pelvis. Assessment and Plan Assessment and plan (1) Abdominal pain: Problem comment: I favor abdominal pain is being the primary problem. Cause is uncertain. I am concerned about biliary cause of abdominal pain. Will obtain ultrasound and surgical consultation. Because of the history of fever and other abnormal vital signs I am going to initiate empiric antibiotics. Status: Acute (2) Hypoxia: Problem comment: Initial evaluation shows no acute cardia respiratory illness. This may be secondary to his abdominal pain. Continue close monitoring. He is at risk for hypoxia from sleep apnea as well. Status: Acute (3) Autism: Status: Acute (4) Bipolar disorder: Status: Acute (5) OCD (obsessive compulsive disorder): Status: Acute (6) Obesity hypoventilation syndrome: Problem comment: Monitor respiratory status. Status: Suspected (7) Obstructive sleep apnea: Problem comment: Caution with opioid medications Status: Suspected (8) Obesity: Status: Acute Plan Patient be admitted to the hospital for further evaluation and treatment of abdominal pain and abnormal vitals including tachypnea, hypoxia, fever plan of care was discussed with the patient and his mother. Total time spent today is 80 minutes, 50 minutes in coordination of care and discussing with patient and mother and other providers ongoing evaluation management.
--- NOTE | 2022-10-15 23:53 | PC.NURSE ---
report given to m/s rn, pt vss.
[2022-10-16] VITALS (21 sets, daily range): BP systolic 133–176; BP diastolic 77–108; PULSE 79–131; RESP 20–42; TEMP 36.9–39.6; O2SAT 89–96
[2022-10-16] MEDS: PIPERACILLIN/TAZOBACTAM 3.375 GM in 0.9 % SODIUM CHLORIDE Mini-bag 100 ML IVPB ×5 (00:20→23:52)
[2022-10-16] MEDS: LACTATED RINGERS 1000 ML 1,000 ML 125 ML IV ×3 (00:20→18:30)
[2022-10-16] MEDS: ACETAMINOPHEN 325 MG TABLET 975 MG PO ×2 (00:49→18:28)
[2022-10-16] MEDS: risperiDONE 1 MG TABLET 4 MG PO ×2 (04:39→13:04)
[2022-10-16] MEDS: MORPHINE 4 MG/ML INJ IVP ×2 (05:21→11:35)
[2022-10-16 06:27] LABS: HCO3 VBG 31 mmol/L (21-28); PCO2 VBG 51 mmHG (40-50); PO2 VBG 38.3 mmHG (25-47); pH VBG 7.393 (7.32-7.43)
[2022-10-16 06:38] LABS: Basophils Absolute Auto 0.02 K/uL (0.00-0.30); Basophils Percent Auto 0.2 % (0.0-3.0); Hematocrit 35.4 % (37.0-53.0); Hemoglobin* 12.1 gm/dL (13.5-17.5); Immature Granulocytes Abs Auto 0.03 K/uL (0.00-0.30); Immature Granulocytes Pct Auto 0.3 %; Lymphocytes Percent Auto 5.7 % (20-44); Mean Corpuscular HGB Conc 34 gm/dL (32-36); Mean Corpuscular Hemoglobin 30 pg (26-34); Mean Corpuscular Volume 86 fL (80-100); Monocytes Percent Auto 10.7 % (0.0-11.0); Neutrophils Percent Auto 83.1 % (42.0-72.0); Platelet Count* 203 K/uL (140-440); RDW Coefficient of Variation % 12.9 % (11.5-15.5)
[2022-10-16 06:40] LABS: Slide Review Reflex No
[2022-10-16 06:54] LABS: Albumin* 3.8 g/dL (3.3-5.0); Chloride* 100 mmol/L (96-114); Potassium* 4.1 mmol/L (3.6-5.1); Sodium* 136 mmol/L (135-149)
[2022-10-16 06:57] LABS: Aspartate Amino Transferase* 29 U/L (12-35); Bilirubin Total* 0.7 mg/dL (0.1-1.5); Carbon Dioxide* 30 mmol/L (20-32); Creatinine* 0.7 mg/dL (0.5-1.5); Est. Creatinine Clearance* 144.92; Estimated Glomerular Filt Rate 117 ml/min; Total Protein* 7.2 g/dL (6.0-8.3)
[2022-10-16 06:58] LABS: Alanine Aminotransferase* 35 U/L (4-50); Alkaline Phosphatase* 51 U/L (40-150); Blood Urea Nitrogen* 12 mg/dL (5-24); Calcium* 8.5 mg/dL (8.4-10.6); Glucose* 141 mg/dL (60-115); Lipase* 31 U/L (23-300)
--- NOTE | 2022-10-16 07:00 | CRLHL7_ITS ---
For Patients: As a result of the Century Cures Act, medical imaging exams and procedure reports are released immediately into your electronic medical record. You may view this report before your referring provider. If you have questions, please contact your health care provider. INDICATION: Right upper quadrant abdomen pain TECHNIQUE: Ultrasound abdomen limited. Sonographic images of the right upper quadrant were obtained using downey-scale and color Doppler images. COMPARISON: Chest, abdomen and pelvis CT 10/15/2022 FINDINGS: Liver: Diffuse increase in echogenicity with areas of focal spurring. Gallbladder: Mild gallbladder sludge without gallbladder wall thickening or pericholecystic fluid. Common bile duct: 5 mm. Pancreas: Mostly obscured by bowel gas without gross abnormality. Right kidney: Normal in size. Normal echotexture and cortex. No masses, stones, or hydronephrosis. Vasculature: Proximal abdominal aorta and IVC are normal. IMPRESSION: 1. Mild gallbladder sludge without evidence of cholelithiasis or cholecystitis. 2. Moderate fatty infiltration of the liver. Dictated by Lex Rushing MD @ 10/16/2022 8:01:33 AM (Electronically Signed)
[2022-10-16 07:11] LABS: Troponin I* < 0.01 ng/mL (0.01-0.04)
[2022-10-16 07:18] LABS: C Reactive Protein* 22.5 mg/dL (0.5-1.0)
[2022-10-16] MEDS: OMEPRAZOLE 20 MG CAPSULE DR 40 MG PO (07:27)
--- NOTE | 2022-10-16 07:38 | PC.NURSE ---
Pt is alert and oriented to self only. Pt reported 8/10 pain in abdomen upon arrival of unit, pain was managed with schedule PRN medications. Pt had a 103.2 temp upon arrival of unit at 0015 10/15/22, temp managed with PRN tylenol, temp taken again around 0130 and it was down 98.6 F. Pt is IND in room. Pt was NPO since 0000. Pt got little sleep overnight due to frequent vitals due to pt condition. Pt was cooperative and pleasant.
--- NOTE | 2022-10-16 07:45 | CRLHL7_ITS ---
For Patients: As a result of the Century Cures Act, medical imaging exams and procedure reports are released immediately into your electronic medical record. You may view this report before your referring provider. If you have questions, please contact your health care provider. Indication: Respiratory distress Technique: Chest 1 view Comparison: None Findings/Impression: Cardiovascular and mediastinum: Heart size and vasculature are normal in caliber and appearance. Lungs and pleural space: Likely trace left pleural effusion with low lung volumes. Patchy bibasilar opacities, likely atelectasis on the right. Left basilar opacity is a bit more focal and can represent atelectasis or pneumonia. No pneumothorax. Bones and soft tissues: No acute findings. Dictated by Lex Rushing MD @ 10/16/2022 8:05:40 AM (Electronically Signed)
--- NOTE | 2022-10-16 07:51 | CRLHL7_ITS ---
For Patients: As a result of the Century Cures Act, medical imaging exams and procedure reports are released immediately into your electronic medical record. You may view this report before your referring provider. If you have questions, please contact your health care provider. INDICATION: Respiratory distress, abdominal pain. COMPARISON: CT chest, abdomen, pelvis 10/15/2022. TECHNIQUE: Abdomen 2 view. FINDINGS: No dilated small bowel loops. Moderate amount of stool throughout the colon. Gas distended redundant sigmoid colon measuring up to 8.5 cm in diameter. This appears similar to prior CT. No pneumatosis. Bibasilar opacities. The bones are unremarkable. IMPRESSION: 1. No dilated small bowel loops. 2. Gas distended redundant sigmoid colon. 3. Bibasilar opacities. Dictated by Manasa Gallardo MD @ 10/16/2022 8:14:55 AM (Electronically Signed)
[2022-10-16 08:06] LABS: Hemoglobin A1C* 5.81 % (0-5.6)
[2022-10-16 08:12] LABS: ABG PCO2 40 mmHG (35-45); Base Excess ABG 4.9 mmol/L (-3.0-3.0); Carboxyhemoglobin* 1.2 % (0.0-5.0); HCO3 ABG 29 mmol/L (21-28); Oxygen Saturation ABG 93 % (92-100); PO2 ABG 61.2 mmHG (80-105); TCO2 ABG 26 mmol/l (21-30); pH ABG 7.47 (7.35-7.45)
--- NOTE | 2022-10-16 08:13 | PC.NURSE ---
Overnight Eduardo was called by charge nurse Tricia around 0130 due to concern for pt presenting condition when being admitted to the unit at 0015 such as pt SOB with use of accessory muscles, pt being on 10 L of oxygen with oxygen mask, pt had fever of 103.2 F and pt reported pain was 7-8/10 in abdomen. Eduardo's nurse answered and took Connie's message to report to the doctors. Eduardo KABA responded back 0210 and nurse reported that antibiotic was started, fluids were running, pt's fever and vital signs were starting to stabilize. Pt's fever came down to 98.9 and blood pressure had come down from 168/108 to 145/92 and pt's 02 Sats were 95-96% on 10L of oxygen. Eduardo's MD reported that there was no significant labs that raised concern and CT scans were had no findings and Esmer'jhonny MD decided they were not going to see the pt due to the stable vital signs and insignificant findings in labs and scans.
[2022-10-16] MEDS: LORazepam 2 MG/ML inj 0.5 MG IVP (08:33)
[2022-10-16 08:35] LABS: Procalcitonin* 0.23 ng/mL (<0.50)
[2022-10-16 08:35] LABS: Procalcitonin* 0.27 ng/mL (<0.50)
[2022-10-16 08:36] LABS: NT Pro B Type NatriureticPept* 297 pg/mL
[2022-10-16 09:11] LABS: Appearance Urine Clear (Clear); Bilirubin Urine Negative (Negative); Blood Urine 2+ (Negative); Color Urine Yellow (Yellow); Glucose Urine Negative (Negative); Ketones Urine Trace (Negative); Leukocyte Esterase Urine Negative (Negative); Nitrite Urine Negative (Negative); Protein Urine 2+ (Negative); Specific Gravity Urine 1.025 (1.000-1.030); pH Urine 6.5 (5.0-8.5)
[2022-10-16 09:22] LABS: RBC Urine 0-2 (0-2)
[2022-10-16 09:23] LABS: WBC Urine 0-2 (0-5)
[2022-10-16] MEDS: AZITHROMYCIN 500 MG in 0.9 % SODIUM CHLORIDE 250 ml 250 ML 255 MG IVPB (09:47)
[2022-10-16 09:59] LABS: Gamma Glutamyl Transpeptidase* 72 U/L (8-55)
[2022-10-16] MEDS: bisacodyL 10 MG SUPP.RECT PR (10:00)
--- NOTE | 2022-10-16 10:27 | RESP.RT ---
Pt in moderate respiratory distress this AM. RR 44 using oxymask between 5-10L ABG drawn, and pt moved to CCU Attempted to start BIPAP for PT. He did not tolerate the mask, and removed it immediately x2. Placed on HFNC, which Pt. tolerated well, and was dosing on it, however at this time his RR remains high. CXR noted. continue to monitor and support respiratory status.
[2022-10-16] MEDS: IPRAT-ALBUT 0.5-2.5 MG/3 ML NEB 1 NEB IH (12:58)
--- NOTE | 2022-10-16 13:22 | P.IMPN_ITS ---
Progress Note: A&P Assessment and plan (1) Acute respiratory failure, unspecified whether with hypoxia or hypercapnia: Problem details: -high-flow O2. 20 L. 60%. I appreciate the help of RT. febrile, tachypneic. Hypertensive. PE has been ruled out. Possible left lower lobe infiltrate, as likely to be atelectasis. On antibiotics. Blood cultures pending. Etiology of this is still unclear and our differential remains wide. I have ordered an echo to assess for pulmonary hypertension or other primary cardiac concern. Could this be biliary in nature? EGD verses HIDA scan for further clarification. Could he have adhesions or some other functional large intestine process? - continue current cares with close observation. He is not on steroids at this point. -new COVID/influenza/RSV swab Status: Acute (2) Abdominal pain: Problem details: As above. GGT is only mildly elevated likely due to his history of hepatic steatosis. LFTs are normal. Procalcitonin is normal. CRP remains elevated but flat. No acidosis. No hematochezia. Actually no bowel movements at all even despite a suppository. Passing flatus and burping. Status: Acute (3) Elevated blood pressure reading: Problem details: Does not have hypertension diagnosis. May be due to acute illness and abdominal pain. Status: Acute (4) Obstructive sleep apnea: Problem details: Caution with opioid medications Status: Suspected (5) Obesity hypoventilation syndrome: Problem details: Likely this is the baseline with an acute process overlying. Status: Suspected (6) Hepatic steatosis: Problem details: Noted Status: Acute (7) Obesity: Problem details: Noted Status: Acute (8) OCD (obsessive compulsive disorder): Problem details: Noted Status: Acute (9) Bipolar disorder: Problem details: Noted Status: Acute (10) Autism: Problem details: Noted. Mom states that his Depakote and gabapentin for mood stability has recently been held. She states that she did not see it therapeutic value. Status: Acute Subjective Date Seen: 10/16/22 Interval history: Daily Progress Note - Hospital Medicine Day #: 2 (Admitted last evening) CC: abdominal pain, SOB/hypoxia. -arrived at 7 am - RN concerned about increased WOB, fever reported overnight. He is verbal, but not more than 1 word. He is complaining of abdominal pain. -I find him tachypneic, mildly anxious, febrile -I instructed the nurses to move him to the CCU. We called RT to start BiPAP initially, however this was not tolerated by the patient. We coached him with high-flow O2. He is currently on 20 L of 60% FiO2. ABG was drawn that showed no acidosis. His abdominal exam is nonfocal, nontender. He did have an enlarged bladder and this was drained with a Timmons catheter. I repeated a chest x-ray this morning as well as a two view abdominal x-ray and this shows a redundant sigmoid colon that is dilated but otherwise normal. His chest x-ray was essentially stable possibly left lower lobe infiltrate versus atelectasis. Blood cultures were not drawn at admission, I added those to the morning labs. Continued the Zosyn. Added azithromycin. Abdominal ultrasound was also done this morning which was positive for some gallbladder sludge but no obvious cholecystitis or cholelithiasis. In review of his labs he has no obvious leukocytosis. His CRP remains elevated. Procalcitonin is reassuring. -I discussed with his mother who was bedside. She describes this presentation is much different than the 1 a year ago. She stated a year ago he was clearly in respiratory distress initially with coughing spasms and hypoxia. This time he presented with abdominal pain and hypoxia. She is very worried that he is distended or obstructed. We went through the evidence of no small-bowel obstruction and soft abdominal wall and a Timmons catheter that is draining. He has been NPO since admission. OVERNIGHT UPDATES FROM STAFF & MED, LAB, IMAGING UPDATES Patient has been febrile to 103.2 and is currently 100.9 Blood pressure 139/84 as high as 180/80 Respiratory rates been elevated in mid to high 20s Currently satting 94% on 20 L and 60% FiO2, high-flow oxygen 105 kilos CBC remains stable. No elevated leukocytosis ABG this morning at 8:00 a.m. 7.47 pH. PCO2 40. PO2 only 61.(prior to high- flow) Electrolytes normal this morning. A1c 5.8 LFTs normal, mildly elevated GGT 72 Negative troponin CRP markedly elevated at 22.5. Procalcitonin is 0.2 with no rise overnight BNP less than 300 SARS-CoV-2 negative Abdominal ultrasound done this mornin. Mild gallbladder sludge without evidence of cholelithiasis or cholecystitis. 2. Moderate fatty infiltration of the liver. Portable chest Likely trace left pleural effusion with low lung volumes. Patchy bibasilar opacities, likely atelectasis on the right. Left basilar opacity is a bit more focal and can represent atelectasis or pneumonia. No pneumothorax. Two view abdomen 1. No dilated small bowel loops. 2. Gas distended redundant sigmoid colon. 3. Bibasilar opacities. Urine cultures and blood cultures are negative to date Objective: Vitals: see above Lungs: Clear. Cardiac: S1S2. Disposition/Potential discharge - Likely to return to previous living situation. Total time is 35 minutes with greater than 50% spent in counseling and coordination of care. Exam Const: Vital Signs, click to edit/add: Vital Signs - 24 hr 10/15/22 19:45 10/15/22 20:30 10/15/22 20:30 Temperature 98.2 F Pulse Rate [Pulse Oximeter] Pulse Rate [Right Pulse Oximeter] 114 H Respiratory Rate 28 H Blood Pressure [Ri ght Arm] Blood Pressure [Ri ght Upper Arm] 151/90 H Pulse Oximetry 87 L 92 93 Oxygen Delivery Me thod Room Air OxyMask Oxygen Flow Rate 10 Fraction of Inspir ed Oxygen 10/15/22 20:45 10/15/22 21:00 10/15/22 21:26 Temperature 98.4 F 98.4 F Pulse Rate [Pulse Oximeter] Pulse Rate [Right Pulse Oximeter] 89 89 90 Respiratory Rate 24 28 H 26 H Blood Pressure [Ri ght Arm] Blood Pressure [Ri ght Upper Arm] 153/88 H 153/90 H 142/78 H Pulse Oximetry 93 93 93 Oxygen Delivery Me thod OxyMask OxyMask OxyMask Oxygen Flow Rate 10 10 Fraction of Inspir ed Oxygen 10/15/22 20:30 10/15/22 22:52 10/15/22 23:09 Temperature 98.4 F 98.5 F Pulse Rate [Pulse Oximeter] Pulse Rate [Right Pulse Oximeter] 98 84 Respiratory Rate 30 H 30 H Blood Pressure [Ri ght Arm] Blood Pressure [Ri ght Upper Arm] 180/87 H 169/107 H Pulse Oximetry 88 93 96 Oxygen Delivery Me thod Room Air OxyMask OxyMask Oxygen Flow Rate 10 Fraction of Inspir ed Oxygen 10/16/22 00:11 10/16/22 00:49 10/15/22 23:40 Temperature 103.2 F H 103.2 F H Pulse Rate [Pulse Oximeter] Pulse Rate [Right Pulse Oximeter] Respiratory Rate 25 H Blood Pressure [Ri ght Arm] 168/108 H Blood Pressure [Ri ght Upper Arm] Pulse Oximetry 96 95 Oxygen Delivery Me thod OxyMask Oxygen Flow Rate 10 Fraction of Inspir ed Oxygen 10/16/22 02:48 10/16/22 02:05 10/16/22 03:05 Temperature 100.9 F H 98.4 F 100.9 F H Pulse Rate [Pulse Oximeter] 100 95 Pulse Rate [Right Pulse Oximeter] Respiratory Rate 20 20 20 Blood Pressure [Ri ght Arm] 139/84 145/92 H 139/84 Blood Pressure [Ri ght Upper Arm] Pulse Oximetry 94 95 94 Oxygen Delivery Me thod OxyMask OxyMask OxyMask Oxygen Flow Rate 10 10 Fraction of Inspir ed Oxygen 10/16/22 00:15 10/16/22 10:26 10/16/22 10:37 Temperature Pulse Rate [Pulse Oximeter] 100 Pulse Rate [Right Pulse Oximeter] Respiratory Rate 25 H Blood Pressure [Ri ght Arm] Blood Pressure [Ri ght Upper Arm] Pulse Oximetry Oxygen Delivery Me thod OxyMask Oxygen Flow Rate 15 Fraction of Inspir ed Oxygen 60 5 Labs Labs: Laboratory Results - last 24 hr 10/15/22 10/15/22 10/15/22 20:30 20:30 20:30 WBC 10.23 RBC 4.38 Hgb 12.8 L Hct 37.2 MCV 85 MCH 29 MCHC 34 RDW Coeff of Noe 12.8 Plt Count 217 Neut % (Auto) 80.7 H Lymph % (Auto) 4.8 L [place] % (Auto) 13.9 H Eos % (Auto) 0.0 Baso % (Auto) 0.2 Neut # (Auto) 8.30 H Lymph # (Auto) 0.50 L [place] # (Auto) 1.40 H Eos # (Auto) 0.00 Baso # (Auto) 0.02 ABG pH ABG pCO2 ABG pO2 ABG HCO3 ABG Total CO2 ABG O2 Saturation ABG Base Excess VBG pH VBG pCO2 VBG pO2 VBG HCO3 Carboxyhemoglobin Sodium 132 L Potassium 3.8 Chloride 97 Carbon Dioxide 29 BUN 11 Creatinine 0.7 Estimated Creat Clear 144.92 Estimated GFR 117 Glucose 167 H Hemoglobin A1c Lactate 1.1 Calcium 9.1 Total Bilirubin 0.7 Direct Bilirubin 0.2 GGT AST 29 ALT 35 Alkaline Phosphatase 56 Troponin I C-Reactive Protein 22.5 H NT-Pro-B Natriuret Pep 129 Total Protein 7.8 Albumin 4.2 Lipase 41 Procalcitonin 0.23 Urine Color Urine Appearance Urine pH Ur Specific [place] Urine Protein Urine Glucose (UA) Urine Ketones Urine Blood Urine Nitrite Urine Bilirubin Urine Urobilinogen Ur Leukocyte Esterase Urine RBC Urine WBC Ur Squamous Epith Cells Urine Bacteria SARS-CoV-2 (PCR) 10/15/22 10/15/22 10/15/22 20:30 20:30 20:35 WBC RBC Hgb Hct MCV MCH MCHC RDW Coeff of Noe Plt Count Neut % (Auto) Lymph % (Auto) [place] % (Auto) Eos % (Auto) Baso % (Auto) Neut # (Auto) Lymph # (Auto) [place] # (Auto) Eos # (Auto) Baso # (Auto) ABG pH ABG pCO2 ABG pO2 ABG HCO3 ABG Total CO2 ABG O2 Saturation ABG Base Excess VBG pH 7.447 H VBG pCO2 44 VBG pO2 59.1 H VBG HCO3 30 H Carboxyhemoglobin Sodium Potassium Chloride Carbon Dioxide BUN Creatinine Estimated Creat Clear Estimated GFR Glucose Hemoglobin A1c Lactate Calcium Total Bilirubin Direct Bilirubin GGT AST ALT Alkaline Phosphatase Troponin I < 0.01 L C-Reactive Protein NT-Pro-B Natriuret Pep Total Protein Albumin Lipase Procalcitonin Urine Color Urine Appearance Urine pH Ur Specific [place] Urine Protein Urine Glucose (UA) Urine Ketones Urine Blood Urine Nitrite Urine Bilirubin Urine Urobilinogen Ur Leukocyte Esterase Urine RBC Urine WBC Ur Squamous Epith Cells Urine Bacteria SARS-CoV-2 (PCR) Negative SARS-CoV-2 10/15/22 10/16/22 10/16/22 22:23 05:53 05:53 WBC 9.40 RBC 4.10 L Hgb 12.1 L Hct 35.4 L MCV 86 MCH 30 MCHC 34 RDW Coeff of Noe 12.9 Plt Count 203 Neut % (Auto) 83.1 H Lymph % (Auto) 5.7 L [place] % (Auto) 10.7 Eos % (Auto) 0.0 Baso % (Auto) 0.2 Neut # (Auto) 7.80 H Lymph # (Auto) 0.50 L [place] # (Auto) 1.00 H Eos # (Auto) 0.00 Baso # (Auto) 0.02 ABG pH ABG pCO2 ABG pO2 ABG HCO3 ABG Total CO2 ABG O2 Saturation ABG Base Excess VBG pH VBG pCO2 VBG pO2 VBG HCO3 Carboxyhemoglobin Sodium 136 Potassium 4.1 Chloride 100 Carbon Dioxide 30 BUN 12 Creatinine 0.7 Estimated Creat Clear 144.92 Estimated GFR 117 Glucose 141 H Hemoglobin A1c Lactate Calcium 8.5 Total Bilirubin 0.7 Direct Bilirubin GGT 72 H AST 29 ALT 35 Alkaline Phosphatase 51 Troponin I < 0.01 L C-Reactive Protein 22.5 H NT-Pro-B Natriuret Pep 297 Total Protein 7.2 Albumin 3.8 Lipase 31 Procalcitonin 0.27 Urine Color Yellow Urine Appearance Slightly Cloudy A Urine pH 6.0 Ur Specific [place] 1.010 Urine Protein 1+ A Urine Glucose (UA) Negative Urine Ketones Negative Urine Blood 2+ A Urine Nitrite Negative Urine Bilirubin Negative Urine Urobilinogen 1.0 Ur Leukocyte Esterase Negative Urine RBC 5-10 A Urine WBC 0-2 Ur Squamous Epith Cells Few Urine Bacteria None SARS-CoV-2 (PCR) 10/16/22 10/16/22 10/16/22 05:53 05:53 07:59 WBC RBC Hgb Hct MCV MCH MCHC RDW Coeff of Noe Plt Count Neut % (Auto) Lymph % (Auto) [place] % (Auto) Eos % (Auto) Baso % (Auto) Neut # (Auto) Lymph # (Auto) [place] # (Auto) Eos # (Auto) Baso # (Auto) ABG pH ABG pCO2 ABG pO2 ABG HCO3 ABG Total CO2 ABG O2 Saturation ABG Base Excess VBG pH 7.393 VBG pCO2 51 H VBG pO2 38.3 VBG HCO3 31 H Carboxyhemoglobin Sodium Potassium Chloride Carbon Dioxide BUN Creatinine Estimated Creat Clear Estimated GFR Glucose Hemoglobin A1c 5.81 H Lactate Calcium Total Bilirubin Direct Bilirubin GGT AST ALT Alkaline Phosphatase Troponin I C-Reactive Protein NT-Pro-B Natriuret Pep Total Protein Albumin Lipase Procalcitonin Urine Color Yellow Urine Appearance Clear Urine pH 6.5 Ur Specific [place] 1.025 Urine Protein 2+ A Urine Glucose (UA) Negative Urine Ketones Trace A Urine Blood 2+ A Urine Nitrite Negative Urine Bilirubin Negative Urine Urobilinogen 2.0 A Ur Leukocyte Esterase Negative Urine RBC 0-2 Urine WBC 0-2 Ur Squamous Epith Cells None Urine Bacteria None SARS-CoV-2 (PCR) 10/16/22 08:00 WBC RBC Hgb Hct MCV MCH MCHC RDW Coeff of Noe Plt Count Neut % (Auto) Lymph % (Auto) [place] % (Auto) Eos % (Auto) Baso % (Auto) Neut # (Auto) Lymph # (Auto) [place] # (Auto) Eos # (Auto) Baso # (Auto) ABG pH 7.47 H ABG pCO2 40 ABG pO2 61.2 L ABG HCO3 29 H ABG Total CO2 26 ABG O2 Saturation 93 ABG Base Excess 4.9 H VBG pH VBG pCO2 VBG pO2 VBG HCO3 Carboxyhemoglobin 1.2 Sodium Potassium Chloride Carbon Dioxide BUN Creatinine Estimated Creat Clear Estimated GFR Glucose Hemoglobin A1c Lactate Calcium Total Bilirubin Direct Bilirubin GGT AST ALT Alkaline Phosphatase Troponin I C-Reactive Protein NT-Pro-B Natriuret Pep Total Protein Albumin Lipase Procalcitonin Urine Color Urine Appearance Urine pH Ur Specific [place] Urine Protein Urine Glucose (UA) Urine Ketones Urine Blood Urine Nitrite Urine Bilirubin Urine Urobilinogen Ur Leukocyte Esterase Urine RBC Urine WBC Ur Squamous Epith Cells Urine Bacteria SARS-CoV-2 (PCR)
--- NOTE | 2022-10-16 14:23 | PC.NURSE ---
Upon start of shift Pt assessed and was noted to be tachypneic, coarse lung sounds and shallow breathing. MD and RT alerted and Pt moved to Critical care unit. Pt cooperative during shift. Pt alert and oriented x 1. Pt has had pain rating from 3-8 during shift see EMAR for pharmacological interventions. Pt had a Timmons catheter placed at 8am this morning. Pt was changed from 5L on an oxy mask to 20L on high flow nasal canula; Fi02 at 60%. BiPAP was attempted by RT but not tolerated by Pt. Pt is tachypneic and has shallow respirations. Pt?s diet started as NPO and has slowly been graduated to regular diet. Pt tolerating well. Pt has slept for short bursts during shift. Pt is able to answer yes and no questions. Pt is able to rate pain on a scale of 0-10. Pt able to use call light appropriately during shift Pt is a SBA. Pt impulsive when wanting to get out of bed and makes abrupt movements without consideration for IV, nasal canula and O2 sensor.
[2022-10-16 14:38] LABS: PCR FLU A Negative PCR FLU A (Negative); PCR FLU B Negative PCR FLU B (Negative); PCR RSV Negative PCR RSV (Negative)
[2022-10-16 15:00] LABS: Mono Screen* Negative (Negative)
[2022-10-16 15:21] LABS: SARS PCR* Negative SARS-CoV-2 (Negative)
[2022-10-16] MEDS: 0.9 % SODIUM CHLORIDE 250 ml IV (18:46)
[2022-10-16] MEDS: ONDANSETRON 2 MG/ML inj 4 MG IVP ×2 (20:00→23:52)
[2022-10-16 20:05] LABS: Creatine Kinase* 62 U/L (54-186)
[2022-10-16] MEDS: NON-FORMULARY MEDICATION (Fluvoxamine 100 MG) 100 EACH PO (20:36)
--- NOTE | 2022-10-16 23:42 | PC.NURSE ---
Shift Note 150-2330: HFNC 20LPM/60% FiO2, pt mostly satting 90-93% but occasionally begins dipping as low as 88%. Repositioning brings SpO2 back to low 90's. RR=40. Temp 99.2 initially, but increased to 102.6 orally and 103.1 axillary, PRN Tylenol given and recheck temp after 60minutes was 100.8. Pt very sleepy this shift, easily awoken with cares, cooperative, and answered questions appropriately before again falling asleep. He developed nausea with dry heaving but no emesis around 1999, zofran was given as well as Q-easy aromatherapy.
[2022-10-17] VITALS (22 sets, daily range): BP systolic 138–168; BP diastolic 82–107; PULSE 73–94; RESP 22–28; TEMP 37–39.1; O2SAT 91–96
--- NOTE | 2022-10-17 02:37 | PM.EN ---
Chart Event Note Chart Event Note: Reported by RN that Blood cultures came in as postive Gram positive Cocci in clusters started IV Vancomycin Pharmacy to dose.
[2022-10-17] MEDS: ACETAMINOPHEN 325 MG TABLET 975 MG PO ×2 (02:51→22:23)
[2022-10-17] MEDS: MORPHINE 4 MG/ML INJ IVP ×4 (03:17→19:55)
[2022-10-17] MEDS: ONDANSETRON 2 MG/ML inj 4 MG IVP ×3 (03:36→13:07)
[2022-10-17] MEDS: PIPERACILLIN/TAZOBACTAM 3.375 GM in 0.9 % SODIUM CHLORIDE Mini-bag 100 ML IVPB ×4 (06:28→23:38)
[2022-10-17] MEDS: OMEPRAZOLE 20 MG CAPSULE DR 40 MG PO (06:29)
--- NOTE | 2022-10-17 06:42 | PC.NURSE ---
SHIFT NOTE -: Pt is pleasant, answers yes and no questions appropriately, mom at bedside. T-max 100.8, Tylenol given and effective. Pt remains on hiflo 20L/60% with oxygen saturations in the low 90's. Pt RR 24-28. Tele reads NSR. Pt up to [facility] to try to have a BM, unsuccessful, pt reported 8/10 abdominal pain, PRN Morphine given with pt reporting relief, pt appeared very comfortable the rest of the shift, slept in between cares. Pt blood cultures came back with gram positive clusters, updated and order received to start Vanco. Iain patent. Denies CP. Nausea reported, PRN Zofran given with relief. Pt due for a daily weight this AM, blog writer brought scale into room to obtain, mom looked visibly upset and stated no, he has far too many pressing issues than to deal with that this morning, he needs to rest. Weight was not obtained.
--- NOTE | 2022-10-17 07:00 | CRLHL7_ITS ---
For Patients: As a result of the Century Cures Act, medical imaging exams and procedure reports are released immediately into your electronic medical record. You may view this report before your referring provider. If you have questions, please contact your health care provider. Indication: Respiratory distress Comparison: Single-view chest October 16, 2022 Technique: Single AP view chest Findings: There is hyperinflation and chronic interstitial change. There are bibasilar pleural effusions with adjacent compressive atelectasis versus infiltrates with increased interstitial markings consistent with pulmonary edema. There is no pneumothorax. The cardiac silhouette is mildly prominent. The bony thorax is grossly intact. Impression: Persistent increased interstitial markings consistent pulmonary edema with basilar pleural effusions with adjacent compressive atelectasis versus infiltrates. Dictated by Varinder Goodson MD @ 10/17/2022 8:11:02 AM (Electronically Signed)
--- NOTE | 2022-10-17 07:18 | CRLHL7_ITS ---
For Patients: As a result of the Century Cures Act, medical imaging exams and procedure reports are released immediately into your electronic medical record. You may view this report before your referring provider. If you have questions, please contact your health care provider. Indication: Abdominal pain, hepatic steatosis, acute respiratory failure fever, gram positive bacteremia Technique: Volumetric multidetector CT images of the chest, abdomen, and pelvis were obtained after the administration of intravenous contrast. 95 cc Isovue 370 low osmolar intravenous contrast Comparison: CT chest, abdomen and pelvis october 15, [address] abdomen and pelvis October 14, 2022 FINDINGS: CHEST The thoracic inlet is unremarkable with a stable nodule in the left thyroid lobe. The thoracic aorta is nonaneurysmal. There is no filling defect to suggest pulmonary embolus. There are enlarged mediastinal and hilar lymph nodes. There is no axillary adenopathy. There is marked focal thickening and mucoid impaction of the lower lobe bronchi with basilar airspace opacities likely slightly increasing atelectasis versus infiltrates with mildly increased right greater than left basilar pleural effusions. There is no pneumothorax. The thoracic osseus structures are intact without fracture, lytic, or blastic lesion. The thoracic vertebral body heights are grossly maintained with diffuse flowing anterior osteophytosis. There is no significant spondylolisthesis or displaced fracture. ABDOMEN AND PELVIS Stable hepatomegaly and hepatic steatosis without evidence of focal abnormality. The spleen is normal in attenuation and size. The gallbladder is unremarkable without radiopaque calculus. There is no intrahepatic or common ductal dilatation. The stomach is decompressed with persistent thickening of the gastric antrum similar to previous exam. The pancreas is normal in enhancement without significant atrophy. The adrenal glands are unremarkable without evidence of adenoma. The kidneys demonstrate grossly preserved corticomedullary differentiation without evidence of radiopaque calculus or obstructive uropathy. There is a moderate to severe amount of intracolonic stool. There is fluid appreciated within the distal colon and nondistended small bowel which may represent enteritis and/or colitis changes slightly increased in conspicuity from comparison. The appendix is not visualized. The abdominal aorta is nonaneurysmal with no significant atherosclerotic disease. There is a Timmons catheter within the bladder with moderate thickening of the bladder wall. Edema within the prostate is appreciated. There is no pathologically enlarged epigastric, mesenteric, retroperitoneal, or pelvic sidewall lymph node. There is a small fat containing umbilical hernia. There is minimal fluid tracking in the central pelvis. The visualized osseous structures are grossly intact without evidence of displaced fracture, lytic or blastic lesion. The lumbar vertebral body heights are grossly maintained in satisfactory alignment without evidence of displaced fracture. Impression: 1. Increasing bibasilar pleural effusions with adjacent compressive atelectasis versus infiltrates from comparison. Persistent central bronchial thickening and mediastinal/hilar adenopathy. 2. Mildly increased fluid distension of the distal small bowel and distal colon which may represent minimal enterocolitis change. There is hyperemia and thickening of the sigmoid colon with trace fluid seen in the lower quadrants, new from comparison. 3. Stable hepatomegaly and hepatic steatosis. Please note that all CT scans at this facility use dose modulation, iterative reconstruction, and/or weight-based dosing when appropriate to reduce radiation dose to as low as reasonably achievable. Dictated by Varinder Goodson MD @ 10/17/2022 9:37:25 AM (Electronically Signed)
[2022-10-17 07:56] LABS: HCO3 VBG 31 mmol/L (21-28); PCO2 VBG 47 mmHG (40-50); PO2 VBG 39.3 mmHG (25-47); pH VBG 7.426 (7.32-7.43)
[2022-10-17 08:02] LABS: Basophils Absolute Auto 0.02 K/uL (0.00-0.30); Basophils Percent Auto 0.3 % (0.0-3.0); Eosinophils Absolute Auto 0.02 K/uL (0.00-0.50); Eosinophils Percent Auto 0.3 % (0.0-7.0); Hematocrit 31.8 % (37.0-53.0); Hemoglobin* 10.8 gm/dL (13.5-17.5); Immature Granulocytes Abs Auto 0.03 K/uL (0.00-0.30); Immature Granulocytes Pct Auto 0.4 %; Lymphocytes Percent Auto 13.2 % (20-44); Mean Corpuscular HGB Conc 34 gm/dL (32-36); Mean Corpuscular Hemoglobin 29 pg (26-34); Mean Corpuscular Volume 85 fL (80-100); Monocytes Percent Auto 14.1 % (0.0-11.0); Neutrophils Absolute Auto 5.59 K/uL (1.7-7.0); Neutrophils Percent Auto 71.7 % (42.0-72.0); Platelet Count* 192 K/uL (140-440); RDW Coefficient of Variation % 13.1 % (11.5-15.5); Red Blood Count 3.73 m/uL (4.30-5.90); Slide Review Reflex No; White Blood Count* 7.79 K/uL (4.50-11.00)
[2022-10-17 08:14] LABS: Albumin* 3.6 g/dL (3.3-5.0); Chloride* 93 mmol/L (96-114); Sodium* 129 mmol/L (135-149)
[2022-10-17 08:15] LABS: Potassium* 3.5 mmol/L (3.6-5.1)
[2022-10-17 08:16] LABS: Creatinine* 0.5 mg/dL (0.5-1.5); Est. Creatinine Clearance* 202.89; Estimated Glomerular Filt Rate 130 ml/min
[2022-10-17 08:17] LABS: Alanine Aminotransferase* 85 U/L (4-50); Alkaline Phosphatase* 53 U/L (40-150); Aspartate Amino Transferase* 76 U/L (12-35); Bilirubin Total* 0.7 mg/dL (0.1-1.5); Blood Urea Nitrogen* 14 mg/dL (5-24); Carbon Dioxide* 30 mmol/L (20-32); Creatine Kinase* 74 U/L (54-186); Glucose* 180 mg/dL (60-115); Total Protein* 6.9 g/dL (6.0-8.3)
[2022-10-17 08:18] LABS: Calcium* 8.3 mg/dL (8.4-10.6)
[2022-10-17 08:31] LABS: Troponin I* 0.01 ng/mL (0.01-0.04)
[2022-10-17 08:32] LABS: C Reactive Protein* 25.7 mg/dL (0.5-1.0); NT Pro B Type NatriureticPept* 385 pg/mL
[2022-10-17 08:34] LABS: Procalcitonin* 0.55 ng/mL (<0.50)
[2022-10-17] MEDS: PANTOPRAZOLE SODIUM 40 MG INJ 80 MG IVP (08:41)
[2022-10-17] MEDS: LACTATED RINGERS 1000 ML 500 ML IV (08:42)
[2022-10-17] MEDS: AZITHROMYCIN 500 MG in 0.9 % SODIUM CHLORIDE 250 ml 250 ML 252.5 MG IVPB (09:55)
[2022-10-17] MEDS: NON-FORMULARY MEDICATION (Fluvoxamine 100 MG) 100 EACH PO ×2 (09:57→21:04)
--- NOTE | 2022-10-17 10:35 | P.IMPN_ITS ---
Progress Note: A&P Assessment and plan (1) Gram-positive cocci bacteremia: Problem details: -both aerobic bottles from 8:00 a.m. yesterday were positive overnight. Vanc was started. He is getting 2 g IV Q 12 hours. Source is undetermined. Could be nasal. No obvious skin infections. Echo pending today. -repeat chest abdomen pelvis CT has some nonspecific findings in the abdomen. His bilateral pleural effusions and atelectasis/infiltrate and adenopathy still point to a respiratory source. Likely compounded by longstanding BECKI and obesity hypoventilation syndrome. -continue to have RT help evaluate and maintain his high-flow O2 support. Nebs. Pulmonary hygiene. -he has been on lactated Ringer's and this morning I noticed a mildly depressed sodium and potassium. I am switching him to normal saline with 20 of K. understanding there may be some fluid overload based on his effusions I am carefully observing I's and O's and for 3rd spacing. Ultimately he may need some Lasix to help move along his fluid. His respiratory status is stable. And in fact this morning he looks little more comfortable. Status: Acute (2) Acute respiratory failure, unspecified whether with hypoxia or hypercapnia: Problem details: -high-flow O2. 20 L. 60%. I appreciate the help of RT. spiked a fever last night. Tachypnea and hypertension seem to be less today. PE has been ruled out. Possible left lower lobe infiltrate, but as likely to be atelectasis. Likely compounded by BECKI, untreated and obesity hypoventilation syndrome. Etiology is Gram-positive, likely Staph aureus, bacteremia without a primary source. Echo pending. Vanc, Zosyn, azithromycin. O2 support. Ultrasound, repeat CT all accomplished and reviewed. Status: Acute (3) Elevated blood pressure reading: Problem details: Does not have hypertension diagnosis. May be due to acute illness and abdominal pain. Status: Acute (4) Obesity hypoventilation syndrome: Problem details: Likely this is the baseline with an acute process overlying. Status: Suspected (5) Abdominal pain: Problem details: As above. GGT is only mildly elevated likely due to his history of hepatic steatosis. LFTs are normal. Procalcitonin is normal. CRP remains elevated.. No acidosis. No hematochezia or hematemesis. Actually no bowel movements at all even despite a suppository. Passing flatus and burping without vomiting or diarrhea. Status: Acute (6) Autism: Problem details: Noted. Mom states that his Depakote and gabapentin for mood stability has recently been held. She states that she did not see it therapeutic value. Status: Acute (7) Bipolar disorder: Problem details: Noted Status: Acute (8) OCD (obsessive compulsive disorder): Problem details: Noted Status: Acute Subjective Date Seen: 10/17/22 Interval history: Daily Progress Note - Hospital Medicine Day #: 3 CC: Gram-positive bacteremia, abdominal pain, respiratory distress OVERNIGHT UPDATES FROM STAFF & MED, LAB, IMAGING UPDATES -overnight blood cultures turned positive for Gram-positive cocci. Vancomycin was started, Zosyn and azithromycin continue. -melendez CT repeated this morning -nasal MRSA culture obtained -respiratory status stable, pH stable, settings on high-flow stable. -discussed care plan with mom who is bedside T-max since midnight 100.8? F, current temp 98.6? F Last evening his temp reached 102.6? F Remains hypertensive 157/100, 149/96 Pulse has come down nicely from the low 100s and even as high as 130s to 70s and 80s Respiratory rate has generally improved. Since 8:00 a.m. this morning he has been 20 breaths per minute. Less belly breathing and tachypnea noted. Remains on high-flow O2. 60% FiO2 at 20 L. Weight is up about 3 kilos - BNP STABLE. Timmons catheter in place CBC is stable, slight drop in hemoglobin PH is stable. No CO2 accumulation. Sodium is dropped to 129, potassium is dropped 3.5. Renal function is stable. AST and ALT are mildly elevated. Total bilirubin is normal Troponin is undetectable C reactive protein is up trending. BLOOD CULTURES DRAWN YESTERDAY MORNING are growing Gram-positive cocci in clusters Urine culture is negative growth New blood cultures from febrile illness last night are pending. MRSA nasal culture is pending Echo to be done later today. CT chest abdomen pelvis this morning Impression: 1. Increasing bibasilar pleural effusions with adjacent compressive atelectasis versus infiltrates from comparison. Persistent central bronchial thickening and mediastinal/hilar adenopathy. 2. Mildly increased fluid distension of the distal small bowel and distal colon which may represent minimal enterocolitis change. There is hyperemia and thickening of the sigmoid colon with trace fluid seen in the lower quadrants, new from comparison. 3. Stable hepatomegaly and hepatic steatosis. Objective: Objectively about the same. His breathing seems less labored. Vitals: see above Lungs: Rhonchi bilaterally - shallow inspirations Cardiac: S1S2. No harsh murmurs Mild pitting edema Disposition/Potential discharge - Likely to return to previous living situation. Total time is 35 minutes with greater than 50% spent in counseling and coordination of care. Exam Const: Vital Signs, click to edit/add: Vital Signs - 24 hr 10/16/22 10:37 10/16/22 11:15 10/16/22 12:00 Temperature 98.6 F Pulse Rate Pulse Rate [Pulse Oximeter] 131 H Respiratory Rate 40 H Blood Pressure [Ri ght Arm] 176/102 H Pulse Oximetry 92 Oxygen Delivery Me thod OxyMask High Flow Nasal Ca nnula Oxygen Flow Rate 20 Fraction of Inspir ed Oxygen 5 60 10/16/22 14:19 10/16/22 15:00 10/16/22 15:00 Temperature 99.2 F Pulse Rate Pulse Rate [Pulse Oximeter] 103 H Respiratory Rate 40 H 40 H Blood Pressure [Ri ght Arm] 133/78 Pulse Oximetry 90 90 Oxygen Delivery Me thod High Flow Nasal Ca nnula High Flow Nasal Ca nnula Oxygen Flow Rate 20 20 Fraction of Inspir ed Oxygen 60 60 60 10/16/22 16:00 10/16/22 18:00 10/16/22 18:28 Temperature 102.6 F H Pulse Rate Pulse Rate [Pulse Oximeter] Respiratory Rate Blood Pressure [Ri ght Arm] Pulse Oximetry Oxygen Delivery Me thod Oxygen Flow Rate Fraction of Inspir ed Oxygen 60 60 10/16/22 15:00 10/16/22 19:00 10/16/22 20:00 Temperature 102.6 F H Pulse Rate Pulse Rate [Pulse Oximeter] 103 H 110 H Respiratory Rate 40 H 40 H Blood Pressure [Ri ght Arm] 135/77 Pulse Oximetry 93 Oxygen Delivery Me thod High Flow Nasal Ca nnula Oxygen Flow Rate 20 Fraction of Inspir ed Oxygen 60 60 10/16/22 20:57 10/16/22 22:00 10/16/22 23:00 Temperature Pulse Rate 107 H 79 Pulse Rate [Pulse Oximeter] Respiratory Rate Blood Pressure [Ri ght Arm] Pulse Oximetry Oxygen Delivery Me thod Oxygen Flow Rate Fraction of Inspir ed Oxygen 60 10/16/22 23:00 10/16/22 23:00 10/16/22 23:00 Temperature 98.8 F Pulse Rate Pulse Rate [Pulse Oximeter] 92 Respiratory Rate 26 H 26 H 26 H Blood Pressure [Ri ght Arm] 147/99 H Pulse Oximetry 94 94 Oxygen Delivery Me thod High Flow Nasal Ca nnula High Flow Nasal Ca nnula Oxygen Flow Rate 20 20 Fraction of Inspir ed Oxygen 60 60 10/16/22 23:40 10/17/22 00:00 10/17/22 02:00 Temperature Pulse Rate Pulse Rate [Pulse Oximeter] Respiratory Rate Blood Pressure [Ri ght Arm] Pulse Oximetry 94 Oxygen Delivery Me thod Oxygen Flow Rate Fraction of Inspir ed Oxygen 60 60 10/17/22 02:00 10/17/22 03:50 10/17/22 04:00 Temperature 100.8 F H 98.9 F Pulse Rate Pulse Rate [Pulse Oximeter] 94 92 Respiratory Rate 26 H 28 H Blood Pressure [Ri ght Arm] 138/91 H 148/82 H Pulse Oximetry 94 93 Oxygen Delivery Me thod High Flow Nasal Ca nnula High Flow Nasal Ca nnula Oxygen Flow Rate 20 20 Fraction of Inspir ed Oxygen 60 60 60 10/17/22 05:49 10/17/22 06:00 10/17/22 06:00 Temperature 98.7 F 98.7 F Pulse Rate Pulse Rate [Pulse Oximeter] 80 80 Respiratory Rate 26 H 26 H Blood Pressure [Ri ght Arm] 149/96 H 149/96 H Pulse Oximetry 93 93 Oxygen Delivery Me thod High Flow Nasal Ca nnula High Flow Nasal Ca nnula Oxygen Flow Rate 20 20 Fraction of Inspir ed Oxygen 60 60 60 10/17/22 09:59 10/17/22 08:00 10/17/22 08:00 Temperature Pulse Rate 73 Pulse Rate [Pulse Oximeter] Respiratory Rate 22 Blood Pressure [Ri ght Arm] Pulse Oximetry Oxygen Delivery Me thod Oxygen Flow Rate 20 Fraction of Inspir ed Oxygen 0.60 10/17/22 08:00 10/17/22 08:00 Temperature 98.6 F Pulse Rate Pulse Rate [Pulse Oximeter] 78 Respiratory Rate 22 22 Blood Pressure [Ri ght Arm] 157/100 H Pulse Oximetry 94 94 Oxygen Delivery Me thod High Flow Nasal Ca nnula High Flow Nasal Ca nnula Oxygen Flow Rate 20 20 Fraction of Inspir ed Oxygen 0.60 0.60 Labs Labs: Laboratory Results - last 24 hr 10/16/22 10/16/22 10/16/22 05:53 05:53 13:49 WBC RBC Hgb Hct MCV MCH MCHC RDW Coeff of Noe Plt Count Neut % (Auto) Lymph % (Auto) [place] % (Auto) Eos % (Auto) Baso % (Auto) Neut # (Auto) Lymph # (Auto) [place] # (Auto) Eos # (Auto) Baso # (Auto) VBG pH VBG pCO2 VBG pO2 VBG HCO3 Sodium Potassium Chloride Carbon Dioxide BUN Creatinine Estimated Creat Clear Estimated GFR Glucose Calcium Ionized Calcium Tyrone Magnesium Total Bilirubin AST ALT Alkaline Phosphatase Total Creatine Kinase 62 Troponin I C-Reactive Protein NT-Pro-B Natriuret Pep Total Protein Albumin SARS-CoV-2 (PCR) Negative SARS-CoV-2 Monoscreen Negative Influenza Type A (PCR) Negative PCR FLU A Influenza Type B (PCR) Negative PCR FLU B RSV (PCR) Negative PCR RSV 10/17/22 10/17/22 10/17/22 07:45 07:45 07:45 WBC 7.79 RBC 3.73 L Hgb 10.8 L Hct 31.8 L MCV 85 MCH 29 MCHC 34 RDW Coeff of Noe 13.1 Plt Count 192 Neut % (Auto) 71.7 Lymph % (Auto) 13.2 L [place] % (Auto) 14.1 H Eos % (Auto) 0.3 Baso % (Auto) 0.3 Neut # (Auto) 5.59 Lymph # (Auto) 1.00 [place] # (Auto) 1.10 H Eos # (Auto) 0.02 Baso # (Auto) 0.02 VBG pH 7.426 VBG pCO2 47 VBG pO2 39.3 VBG HCO3 31 H Sodium 129 L Potassium 3.5 L Chloride 93 L Carbon Dioxide 30 BUN 14 Creatinine 0.5 Estimated Creat Clear 202.89 Estimated GFR 130 Glucose 180 H Calcium 8.3 L Ionized Calcium Tyrone 1.10 L Magnesium 2.0 Total Bilirubin 0.7 AST 76 H ALT 85 H Alkaline Phosphatase 53 Total Creatine Kinase 74 Troponin I 0.01 C-Reactive Protein 25.7 H NT-Pro-B Natriuret Pep 385 Total Protein 6.9 Albumin 3.6 SARS-CoV-2 (PCR) Monoscreen Influenza Type A (PCR) Influenza Type B (PCR) RSV (PCR)
[2022-10-17] MEDS: 0.9 % SODIUM CH + KCL 20 mEq/L 1,000 ML 75 ML IV (11:16)
[2022-10-17] MEDS: SODIUM CHLORIDE 0.9 % (FLUSH) 10 ML SYRINGE 5 ML IVF ×2 (11:17→19:55)
--- NOTE | 2022-10-17 14:03 | P.GSCN_ITS ---
History of Present Illness Consult details Date Seen: 10/17/22 Consult date: 10/17/22 Narrative: Patient's mom requested evaluation for ongoing abdominal pain. Patient is autistic and nonverbal. She states that the pain started on Friday after he ate at [employer] with his brothers. Initially it was felt that his discomfort was in the right upper quadrant. She presented to the emergency department 10/14/2022. CT scan was obtained at that time, which demonstrated some mild twisting and narrowing of the small bowel, but no evidence of obstruction. He was discharged home with recommendations for stool softeners. He re-presented on 10/15/[address] chest abdomen and pelvis was obtained, which demonstrated no intra-abdominal findings. Abdominal ultrasound was performed which showed the presence of sludge, no gallbladder wall thickening or pericholecystic fluid. He was admitted to the hospital through the hospitalist service. Overnight he did have pulmonary decompensation, requiring high-flow oxygen. Throughout his stay he has intermittently complained of abdominal pain. His mom states that the pain is now more in the middle of his abdomen. She also reports that he has increased in his distension. He was able to pass a little bit of gas and a small bowel movement yesterday, but nothing since. She denies any nausea or vomiting. He did eat food yesterday and seemed to tolerate it well. His abdominal surgical history is positive for appendectomy. Throughout his stay LFTs have been normal. A repeat CT scan was obtained 10/17/2022. Evidence of dilation of the colon, consistent with possible colitis. Gallbladder was nondistended with no surrounding inflammation. No other abnormalities noted. His blood cultures have come back positive with Gram- positive cocci. He continues on high-flow nasal cannula to maintain his oxygenation. Review of Systems Status of ROS: Reports: unobtainable due to medical condition and unobtainable due to mental status [facility] Medical History (Updated 10/17/22 @ 11:21 by Pooja Hernandez MD) Autism Bipolar disorder Gout Hepatic steatosis Obesity Obesity hypoventilation syndrome Obstructive sleep apnea OCD (obsessive compulsive disorder) Surgical History (Updated 10/15/22 @ 23:29 by Lavell Au MD) History of appendectomy Family History (Updated 10/15/22 @ 23:30 by Lavell Au MD) Father High cholesterol Social History (Updated 10/15/22 @ 23:31 by Lavell Au MD) Narrative: He lives with his parents. Limited verbal communication secondary to autism. Mother reports that he does have excessive eating and it is hard to control is oral intake. The lock the refrigerator. Smoking Status: Never smoker Do you use any of these nicotine containing products: None Second hand tobacco smoke exposure: No How often do you have a drink containing alcohol: never How often do you have six or more drinks on one occasion: Never AUDIT-C Alcohol total score: 0 Non-prescribed substance use: denies use Caffeine: Yes (Soda) service: No Meds Home Medications and Allergies Home Medications Medication Instructions Recorded Confirmed Type divalproex 500 mg tablet,extended 1,000 mg PO DAILY 10/14/22 10/16/22 History release 24 hr fluvoxamine 100 mg tablet 150 mg PO BID 10/14/22 10/15/22 History gabapentin 600 mg tablet 600 mg PO DAILY 10/14/22 10/15/22 History lorazepam 1 mg tablet 1 mg PO DAILY PRN 10/14/22 10/15/22 History risperidone 4 mg tablet 4 mg PO BID 10/14/22 10/15/22 History Allergies Allergy/AdvReac Type Severity Reaction Status Date / Time No Known Drug Allergies Allergy Verified 10/17/22 09:03 Exam Narrative: Exam Narrative: General: Alert, nontoxic in appearance and lying comfortably in bed Respiratory: Maintained on high-flow oxygen, slight tachypnea. CV: Tachycardic, well perfused Abdomen: Distended and tympanic, soft and nontender to palpation throughout with no rebound or guarding. Const: Vital Signs, click to edit/add: Vital Signs - 24 hr 10/16/22 14:19 10/16/22 15:00 10/16/22 15:00 Temperature 99.2 F Pulse Rate Pulse Rate [Pulse Oximeter] 103 H Respiratory Rate 40 H 40 H Blood Pressure [Ri ght Arm] 133/78 Pulse Oximetry 90 90 Oxygen Delivery Me thod High Flow Nasal Ca nnula High Flow Nasal Ca nnula Oxygen Flow Rate 20 20 Fraction of Inspir ed Oxygen 60 60 60 10/16/22 16:00 10/16/22 18:00 10/16/22 18:28 Temperature 102.6 F H Pulse Rate Pulse Rate [Pulse Oximeter] Respiratory Rate Blood Pressure [Ri ght Arm] Pulse Oximetry Oxygen Delivery Me thod Oxygen Flow Rate Fraction of Inspir ed Oxygen 60 60 10/16/22 15:00 10/16/22 19:00 10/16/22 20:00 Temperature 102.6 F H Pulse Rate Pulse Rate [Pulse Oximeter] 103 H 110 H Respiratory Rate 40 H 40 H Blood Pressure [Ri ght Arm] 135/77 Pulse Oximetry 93 Oxygen Delivery Me thod High Flow Nasal Ca nnula Oxygen Flow Rate 20 Fraction of Inspir ed Oxygen 60 60 10/16/22 20:57 10/16/22 22:00 10/16/22 23:00 Temperature Pulse Rate 107 H 79 Pulse Rate [Pulse Oximeter] Respiratory Rate Blood Pressure [Ri ght Arm] Pulse Oximetry Oxygen Delivery Me thod Oxygen Flow Rate Fraction of Inspir ed Oxygen 60 10/16/22 23:00 10/16/22 23:00 10/16/22 23:00 Temperature 98.8 F Pulse Rate Pulse Rate [Pulse Oximeter] 92 Respiratory Rate 26 H 26 H 26 H Blood Pressure [Ri ght Arm] 147/99 H Pulse Oximetry 94 94 Oxygen Delivery Me thod High Flow Nasal Ca nnula High Flow Nasal Ca nnula Oxygen Flow Rate 20 20 Fraction of Inspir ed Oxygen 60 60 10/16/22 23:40 10/17/22 00:00 10/17/22 02:00 Temperature Pulse Rate Pulse Rate [Pulse Oximeter] Respiratory Rate Blood Pressure [Ri ght Arm] Pulse Oximetry 94 Oxygen Delivery Me thod Oxygen Flow Rate Fraction of Inspir ed Oxygen 60 60 10/17/22 02:00 10/17/22 03:50 10/17/22 04:00 Temperature 100.8 F H 98.9 F Pulse Rate Pulse Rate [Pulse Oximeter] 94 92 Respiratory Rate 26 H 28 H Blood Pressure [Ri ght Arm] 138/91 H 148/82 H Pulse Oximetry 94 93 Oxygen Delivery Me thod High Flow Nasal Ca nnula High Flow Nasal Ca nnula Oxygen Flow Rate 20 20 Fraction of Inspir ed Oxygen 60 60 60 10/17/22 05:49 10/17/22 06:00 10/17/22 06:00 Temperature 98.7 F 98.7 F Pulse Rate Pulse Rate [Pulse Oximeter] 80 80 Respiratory Rate 26 H 26 H Blood Pressure [Ri ght Arm] 149/96 H 149/96 H Pulse Oximetry 93 93 Oxygen Delivery Me thod High Flow Nasal Ca nnula High Flow Nasal Ca nnula Oxygen Flow Rate 20 20 Fraction of Inspir ed Oxygen 60 60 60 10/17/22 09:59 10/17/22 08:00 10/17/22 08:00 Temperature Pulse Rate 73 Pulse Rate [Pulse Oximeter] Respiratory Rate 22 Blood Pressure [Ri ght Arm] Pulse Oximetry Oxygen Delivery Me thod Oxygen Flow Rate 20 Fraction of Inspir ed Oxygen 0.60 10/17/22 08:00 10/17/22 08:00 10/17/22 10:00 Temperature 98.6 F 99.0 F Pulse Rate Pulse Rate [Pulse Oximeter] 78 93 Respiratory Rate 22 22 26 H Blood Pressure [Ri ght Arm] 157/100 H 148/89 H Pulse Oximetry 94 94 94 Oxygen Delivery Me thod High Flow Nasal Ca nnula High Flow Nasal Ca nnula High Flow Nasal Ca nnula Oxygen Flow Rate 20 20 20 Fraction of Inspir ed Oxygen 0.60 0.60 60 10/17/22 11:00 10/17/22 12:00 10/17/22 13:00 Temperature 98.7 F Pulse Rate Pulse Rate [Pulse Oximeter] 88 Respiratory Rate 26 H Blood Pressure [Ri ght Arm] 164/100 H Pulse Oximetry 93 Oxygen Delivery Me thod High Flow Nasal Ca nnula Oxygen Flow Rate 20 Fraction of Inspir ed Oxygen 60 60 60 Results Labs Labs: Abnormal lab results 10/17/22 10/17/22 10/17/22 Range/Units 07:45 07:45 07:45 RBC 3.73 L (4.30-5.90) m/uL Hgb 10.8 L (13.5-17.5) gm/dL Hct 31.8 L (37.0-53.0) % Lymph % (Auto) 13.2 L (20-44) % Reagan % (Auto) 14.1 H (0.0-11.0) % Reagan # (Auto) 1.10 H (0.00-0.90) K/UL VBG HCO3 31 H (21-28) mmol/L Sodium 129 L (135-149) mmol/L Potassium 3.5 L (3.6-5.1) mmol/L Chloride 93 L (96-114) mmol/L Glucose 180 H (60-115) mg/dL Calcium 8.3 L (8.4-10.6) mg/dL Ionized Calcium Tyrone 1.10 L (1.11-1.30) mmol/L AST 76 H (12-35) U/L ALT 85 H (4-50) U/L C-Reactive Protein 25.7 H (0.5-1.0) mg/dL Diabetes panel 10/17/22 Range/Units 07:45 Sodium 129 L (135-149) mmol/L Potassium 3.5 L (3.6-5.1) mmol/L Chloride 93 L (96-114) mmol/L Carbon Dioxide 30 (20-32) mmol/L BUN 14 (5-24) mg/dL Creatinine 0.5 (0.5-1.5) mg/dL Glucose 180 H (60-115) mg/dL Calcium 8.3 L (8.4-10.6) mg/dL AST 76 H (12-35) U/L ALT 85 H (4-50) U/L Alkaline Phosphatase 53 (40-150) U/L Total Protein 6.9 (6.0-8.3) g/dL Albumin 3.6 (3.3-5.0) g/dL Calcium panel 10/17/22 10/17/22 Range/Units 07:45 07:45 Calcium 8.3 L (8.4-10.6) mg/dL Ionized Calcium Tyrone 1.10 L (1.11-1.30) mmol/L Albumin 3.6 (3.3-5.0) g/dL Pituitary panel 10/17/22 Range/Units 07:45 Sodium 129 L (135-149) mmol/L Potassium 3.5 L (3.6-5.1) mmol/L Chloride 93 L (96-114) mmol/L Carbon Dioxide 30 (20-32) mmol/L BUN 14 (5-24) mg/dL Creatinine 0.5 (0.5-1.5) mg/dL Glucose 180 H (60-115) mg/dL Calcium 8.3 L (8.4-10.6) mg/dL Adrenal panel 10/17/22 Range/Units 07:45 Sodium 129 L (135-149) mmol/L Potassium 3.5 L (3.6-5.1) mmol/L Chloride 93 L (96-114) mmol/L Carbon Dioxide 30 (20-32) mmol/L BUN 14 (5-24) mg/dL Creatinine 0.5 (0.5-1.5) mg/dL Glucose 180 H (60-115) mg/dL Calcium 8.3 L (8.4-10.6) mg/dL Total Bilirubin 0.7 (0.1-1.5) mg/dL AST 76 H (12-35) U/L ALT 85 H (4-50) U/L Alkaline Phosphatase 53 (40-150) U/L Total Protein 6.9 (6.0-8.3) g/dL Albumin 3.6 (3.3-5.0) g/dL All other labs normal. Imaging Abdomen CT scan report/results: report reviewed and image reviewed CT scan - pelvis: report reviewed and image reviewed Abdominal ultrasound report/results: report reviewed and image reviewed Assessment and Plan Assessment and plan (1) Abdominal pain: Problem comment: As above. GGT is only mildly elevated likely due to his history of hepatic steatosis. LFTs are normal. Procalcitonin is normal. CRP remains elevated.. No acidosis. No hematochezia or hematemesis. Actually no bowel movements at all even despite a suppository. Passing flatus and burping without vomiting or diarrhea. Status: Acute Plan Patient is a 42-year-old male with consultation requested for intermittent abdominal pain. Patient is a poor historian given his known autism. At this time his symptoms do seem to be largely Pulmonary. His abdomen is distended and tympanic on exam, but soft and nontender. His imaging was reviewed. Although there is sludge within his gallbladder, low concern for gallbladder etiology at this time. CT scan does demonstrate increased fluid distention of distal small bowel and distal colon, which likely represents central colitis changes. No evidence of internal hernia or volvulus. At this time no indication for surgical intervention, but will continue to follow. Recommend a suppository and encourage ambulation. Will re-evaluate tomorrow, please call with any acute clinical changes, questions or concerns.
--- NOTE | 2022-10-17 14:11 | PC.NURSE ---
PATIENT PLEASANT AND COOPERATIVE, FOLLOW COMMANDS, OFF AND ON REPORTING ABDOMINAL PAIN AND SOME NAUSEA, ABDOMINAL PAIN IS AN 8/10 PER PATIENT AND HIS MOTHER, PATIENT IS SEEN RESTING IN BED PATIENT UNAWARE IF PAIN INCREASES WITH MOVEMENT OR WITH EATING, PATIENT DOES REPORT NAUSEA WITH EATING AND HAS A DECREASED APPETITE, PATIENTS MOTHER REQUESTING PAIN MEDICATION OFTEN POSSIBLE, IF THE DOCTOR ORDERED IT FOR HIM TO HAVE IT THAT OFTEN HE CAN, PATIENTS MOTHER EDUCATED ON PAIN MANAGEMENT SPECIFICALLY MORPHINE AND ITS RISK FOR RESPIRATORY DEPRESSION AND DECREASED GUT MOTILITY, 2MG IS SUCH A SMALL DOSE ITS JUST LIKE TYLENOL, PATIENTS MOTHER EDUCATED ON ASSESSING PATENT VITALS, RESTLESSNESS, RESPIRATIONS PRIOR TO GIVING NARCOTICS. PATIENT UP WITH SBA NO ASSISTIVE DEVICES NEEDED, PATIENT DOES EXPRESS SOME INCREASED WORK OF BREATHING WITH MOVEMENT, HFNC 20&60% WITH SATS 90% AND GREATER, RAND PATENT, TELE SHOWING NSR.
[2022-10-17] MEDS: bisacodyL 10 MG SUPP.RECT PR (15:56)
[2022-10-17] MEDS: hydrOXYzine pamoate 25 MG CAPSULE PO (18:10)
[2022-10-17] MEDS: risperiDONE 1 MG TABLET 4 MG PO (21:00)
[2022-10-17] MEDS: LORazepam 1 MG TABLET PO (21:00)
[2022-10-17] MEDS: SENNOSIDES/DOCUSATE TABLET 1 TAB PO (21:00)
--- NOTE | 2022-10-17 22:56 | PC.NURSE ---
End of Shift: Pt pleasant and cooperative. O2 sats 90-95% on HFNC. Respirations 22-26. Tele showing NSR. Temp increased to 102.4 at 2215, PRN Tylenol given. C/o pain in abdomen up to 8/10 and decreased to 4/10 after passing gas and having a moderate bowel movement. BM x3 this shift. PRN Morphine given x1 for abdominal pain. Up to BSC and for a walk in the hallway with SBA. C/o intermittent nausea/dry heaving. PRN Vistaril given x1. Able to tolerate full liquids and a banana.
[2022-10-18] VITALS (16 sets, daily range): BP systolic 127–151; BP diastolic 82–100; PULSE 70–87; RESP 22–28; TEMP 36.4–37.4; O2SAT 90–94
[2022-10-18] MEDS: 0.9 % SODIUM CH + KCL 20 mEq/L 1,000 ML 75 ML IV (03:05)
[2022-10-18] MEDS: MORPHINE 4 MG/ML INJ IVP ×2 (04:03→10:53)
[2022-10-18] MEDS: PIPERACILLIN/TAZOBACTAM 3.375 GM in 0.9 % SODIUM CHLORIDE Mini-bag 100 ML IVPB (05:29)
--- NOTE | 2022-10-18 06:04 | PC.NURSE ---
NURSING NOTE: RECEIVED CALL FROM SHIKHA ([facility]), WOULD LIKE DC SUMMARY TO ASSIST WITH DC PLANNING NEEDS. PHONE NUMBER [phone].
[2022-10-18 06:42] LABS: HCO3 VBG 35 mmol/L (21-28); Ionized Calcium* 1.11 mmol/L (1.11-1.30); PCO2 VBG 52 mmHG (40-50); PO2 VBG 33.3 mmHG (25-47); pH VBG 7.444 (7.32-7.43)
[2022-10-18 06:47] LABS: Basophils Absolute Auto 0.04 K/uL (0.00-0.30); Basophils Percent Auto 0.5 % (0.0-3.0); Eosinophils Absolute Auto 0.06 K/uL (0.00-0.50); Eosinophils Percent Auto 0.7 % (0.0-7.0); Hematocrit 30.8 % (37.0-53.0); Hemoglobin* 10.7 gm/dL (13.5-17.5); Immature Granulocytes Pct Auto 1.2 %; Lymphocytes Percent Auto 15.4 % (20-44); Mean Corpuscular HGB Conc 35 gm/dL (32-36); Mean Corpuscular Hemoglobin 29 pg (26-34); Mean Corpuscular Volume 84 fL (80-100); Monocytes Percent Auto 17.7 % (0.0-11.0); Neutrophils Absolute Auto 5.48 K/uL (1.7-7.0); Neutrophils Percent Auto 64.5 % (42.0-72.0); Platelet Count* 194 K/uL (140-440); RDW Coefficient of Variation % 13.1 % (11.5-15.5); Red Blood Count 3.65 m/uL (4.30-5.90); White Blood Count* 8.49 K/uL (4.50-11.00)
[2022-10-18 06:58] LABS: Slide Review Reflex No
--- NOTE | 2022-10-18 06:59 | PC.NURSE ---
SHIFT NOTE 23-: Pt is pleasant, answers questions appropriately. Mom at bedside, often interrupts and interjects to answer questions for patient. Mom off and on refusing cares/medication for pt, education given to mother. Afebrile this shift T-max 98.6F. Pt remains on hiflo 25L/60%, RR in the mid 20's, pt reports feeling much less SOB than when he came in. Tele NSR. Denies CP, N/V. Timmons patent and draining. PRN Morphine given x1 for abdominal pain with pt reporting good relief. Pt up 1 assist and tolerating well.
[2022-10-18 07:00] LABS: Albumin* 3.5 g/dL (3.3-5.0); Chloride* 96 mmol/L (96-114); Sodium* 135 mmol/L (135-149)
[2022-10-18 07:01] LABS: Potassium* 3.4 mmol/L (3.6-5.1)
[2022-10-18 07:02] LABS: Bilirubin Total* 0.7 mg/dL (0.1-1.5); Creatinine* 0.6 mg/dL (0.5-1.5); Est. Creatinine Clearance* 169.08; Estimated Glomerular Filt Rate 123 ml/min
[2022-10-18 07:03] LABS: Alanine Aminotransferase* 136 U/L (4-50); Alkaline Phosphatase* 61 U/L (40-150); Aspartate Amino Transferase* 84 U/L (12-35); Blood Urea Nitrogen* 9 mg/dL (5-24); Calcium* 8.3 mg/dL (8.4-10.6); Carbon Dioxide* 35 mmol/L (20-32); Gamma Glutamyl Transpeptidase* 119 U/L (8-55); Glucose* 128 mg/dL (60-115); Lipase* 36 U/L (23-300); Total Protein* 6.9 g/dL (6.0-8.3)
[2022-10-18 07:19] LABS: C Reactive Protein* 23.6 mg/dL (0.5-1.0); NT Pro B Type NatriureticPept* 683 pg/mL
[2022-10-18 07:20] LABS: Procalcitonin* 0.41 ng/mL (<0.50)
[2022-10-18] MEDS: bisacodyL 10 MG SUPP.RECT PR (08:04)
[2022-10-18] MEDS: risperiDONE 1 MG TABLET 4 MG PO (08:04)
[2022-10-18] MEDS: NON-FORMULARY MEDICATION (Fluvoxamine 100 MG) 100 EACH PO (08:06)
[2022-10-18] MEDS: hydrOXYzine pamoate 25 MG CAPSULE PO (08:25)
--- NOTE | 2022-10-18 08:53 | CRLHL7_ITS ---
For Patients: As a result of the Century Cures Act, medical imaging exams and procedure reports are released immediately into your electronic medical record. You may view this report before your referring provider. If you have questions, please contact your health care provider. Indication: MSSA bacteremia, looking for paraspinal abscess Technique: Noncontrast sagittal and axial T1, T2, and sagittal STIR sequences are provided. Comparison: No prior studies available for comparison at this institution. Findings: Normal lumbar spine alignment. Vertebral body heights are maintained. No fractures. No prevertebral or paraspinal edema. No aggressive osseous lesions. No evidence for discitis or osteomyelitis. Benign intraosseous hemangioma in the T12 vertebra T12-L1: No significant spinal canal stenosis or neural foramen narrowing. L1-2: No significant spinal canal stenosis or neural foramen narrowing. L2-3: No significant spinal canal stenosis or neural foramen narrowing. L3-4: No significant spinal canal stenosis or neural foramen narrowing. L4-5: Disc bulge and small left neural foramen disc protrusion. No spinal canal stenosis or neural foramina narrowing. L5-S1: No significant spinal canal stenosis or neural foramen narrowing. Impression : 1. Normal alignment. No acute osseous abnormality. 2. No discitis or osteomyelitis. No evidence for epidural abscess. 3. At L4-5 there is a small left neural foramina disc protrusion without significant spinal canal stenosis or neural foramina narrowing. Dictated by John Amor MD @ 10/18/2022 12:49:57 PM (Electronically Signed)
--- NOTE | 2022-10-18 08:53 | CRLHL7_ITS ---
For Patients: As a result of the Century Cures Act, medical imaging exams and procedure reports are released immediately into your electronic medical record. You may view this report before your referring provider. If you have questions, please contact your health care provider. Indication: MSSA bacteremia, looking for paraspinal abscess Technique: Noncontrast sagittal T1, T2, PD. STIR and axial T2 sequences are provided. Comparison: No prior studies available for comparison at this institution. Findings: Normal thoracic spine alignment. Vertebral body heights are maintained. No fracture. No prevertebral or paraspinal edema. Multilevel anterior osteophytic spurring. No suspicious disc bulge or herniation. Benign intraosseous hemangioma in the T12 and T11 vertebra. No aggressive osseous lesions. No evidence for discitis or osteomyelitis. There is abnormal STIR signal hyperintensity in the prevertebral soft tissues at the T6-7 through T12-L1 level that may represent infection/phlegmon. Bilateral pleural effusions and presumed consolidation or atelectasis in the lower lobes may be infectious. No suspicious disc bulge or herniation. No significant spinal canal stenosis or neural foramen narrowing. Impression: 1. There is abnormal STIR signal hyperintensity in the prevertebral soft tissues at the T6-7 through T12-L1 levels that may represent infection/phlegmon. No evidence for discitis or osteomyelitis. No epidural abscess. 2. Bilateral pleural effusions and presumed consolidation or atelectasis in the lower lobes may be infectious. 3. No significant spinal canal stenosis or neural foramen narrowing. 4. No abnormal spinal cord signal. Dictated by John Amor MD @ 10/18/2022 12:56:46 PM (Electronically Signed)
[2022-10-18] MEDS: SODIUM CHLORIDE 0.9 % (FLUSH) 10 ML SYRINGE 5 ML IVF (10:54)
[2022-10-18] MEDS: CEFAZOLIN 2 GM in 0.9 % SODIUM CHLORIDE Mini-bag 100 ML IVPB (12:24)
[2022-10-18] MEDS: 0.9 % SODIUM CHLORIDE 250 ml IV (12:26)
--- NOTE | 2022-10-18 14:14 | PM.GSPN ---
Subjective Subjective Date Seen: 10/18/22 Interval history: Patient is nonverbal. Mom is at bedside. She states that he did complain of some abdominal pain this morning, none currently. He did pass gas and have 3 bowel movements yesterday. His abdomen does appear less distended. Exam Narrative: Exam Narrative: General: Alert and oriented, no acute distress. Abdomen: Soft, moderate distention. Nontender to palpation. Const: Vital Signs, click to edit/add: Vital Signs - 24 hr 10/17/22 15:00 10/17/22 15:00 10/17/22 16:00 Temperature 99.8 F H Pulse Rate Pulse Rate [Pulse Oximeter] 86 Respiratory Rate 22 Blood Pressure [Ri ght Arm] 160/101 H Pulse Oximetry 93 93 Oxygen Delivery Me thod High Flow Nasal Ca nnula High Flow Nasal Ca nnula Oxygen Flow Rate 20 20 Fraction of Inspir ed Oxygen 60 60 60 10/17/22 15:00 10/17/22 15:00 10/17/22 17:00 Temperature Pulse Rate 85 Pulse Rate [Pulse Oximeter] 86 Respiratory Rate 22 Blood Pressure [Ri ght Arm] Pulse Oximetry Oxygen Delivery Me thod Oxygen Flow Rate Fraction of Inspir ed Oxygen 60 10/17/22 18:00 10/17/22 19:00 10/17/22 20:00 Temperature 99.2 F 99.9 F H Pulse Rate Pulse Rate [Pulse Oximeter] 88 82 Respiratory Rate 24 22 Blood Pressure [Ri ght Arm] 168/107 H 155/103 H Pulse Oximetry 95 96 Oxygen Delivery Me thod High Flow Nasal Ca nnula High Flow Nasal Ca nnula Oxygen Flow Rate 25 25 Fraction of Inspir ed Oxygen 60 60 60 10/17/22 21:00 10/17/22 22:23 10/17/22 22:15 Temperature 102.4 F H 102.4 F H Pulse Rate Pulse Rate [Pulse Oximeter] 83 Respiratory Rate 26 H Blood Pressure [Ri ght Arm] 157/100 H Pulse Oximetry 94 Oxygen Delivery Me thod High Flow Nasal Ca nnula Oxygen Flow Rate Fraction of Inspir ed Oxygen 60 10/17/22 23:00 10/17/22 23:00 10/17/22 23:00 Temperature Pulse Rate 73 Pulse Rate [Pulse Oximeter] Respiratory Rate Blood Pressure [Ri ght Arm] Pulse Oximetry 92 Oxygen Delivery Me thod Oxygen Flow Rate Fraction of Inspir ed Oxygen 60 10/17/22 23:00 10/17/22 23:00 10/18/22 00:00 Temperature Pulse Rate Pulse Rate [Pulse Oximeter] 74 Respiratory Rate 26 H 26 H 26 H Blood Pressure [Ri ght Arm] Pulse Oximetry 92 90 Oxygen Delivery Me thod High Flow Nasal Ca nnula High Flow Nasal Ca nnula Oxygen Flow Rate 25 25 Fraction of Inspir ed Oxygen 60 60 10/18/22 03:00 10/18/22 01:00 10/18/22 01:30 Temperature 97.8 F 98.6 F Pulse Rate Pulse Rate [Pulse Oximeter] 78 72 Respiratory Rate 28 H 26 H Blood Pressure [Ri ght Arm] 143/100 H Pulse Oximetry 91 91 Oxygen Delivery Me thod High Flow Nasal Ca nnula High Flow Nasal Ca nnula Oxygen Flow Rate 25 Fraction of Inspir ed Oxygen 60 60 10/18/22 03:00 10/18/22 04:00 10/18/22 05:00 Temperature Pulse Rate Pulse Rate [Pulse Oximeter] 70 Respiratory Rate 26 H Blood Pressure [Ri ght Arm] Pulse Oximetry 92 Oxygen Delivery Me thod High Flow Nasal Ca nnula Oxygen Flow Rate 25 Fraction of Inspir ed Oxygen 60 60 60 10/18/22 05:00 10/18/22 06:00 10/18/22 07:21 Temperature 98.2 F 97.5 F L 99.4 F Pulse Rate Pulse Rate [Pulse Oximeter] 80 78 76 Respiratory Rate 24 26 H 22 Blood Pressure [Ri ght Arm] 127/86 140/87 H 150/94 H Pulse Oximetry 94 92 94 Oxygen Delivery Me thod High Flow Nasal Ca nnula High Flow Nasal Ca nnula High Flow Nasal Ca nnula Oxygen Flow Rate 25 25 Fraction of Inspir ed Oxygen 60 60 10/18/22 07:47 10/18/22 07:47 10/18/22 08:00 Temperature Pulse Rate 87 Pulse Rate [Pulse Oximeter] 87 Respiratory Rate Blood Pressure [Ri ght Arm] Pulse Oximetry Oxygen Delivery Me thod Oxygen Flow Rate Fraction of Inspir ed Oxygen 65 10/18/22 08:00 10/18/22 09:27 10/18/22 11:00 Temperature Pulse Rate Pulse Rate [Pulse Oximeter] Respiratory Rate 22 Blood Pressure [Ri ght Arm] Pulse Oximetry 94 Oxygen Delivery Me thod High Flow Nasal Ca nnula Oxygen Flow Rate 25 Fraction of Inspir ed Oxygen 65 60 60 10/18/22 12:44 10/18/22 13:00 Temperature 98.8 F Pulse Rate Pulse Rate [Pulse Oximeter] 83 Respiratory Rate 24 Blood Pressure [Ri ght Arm] 136/82 Pulse Oximetry 93 Oxygen Delivery Me thod High Flow Nasal Ca nnula Oxygen Flow Rate Fraction of Inspir ed Oxygen 60 Labs/Imaging Labs Labs: Normalization of WBC, CRP is trending down. Imaging Imaging: MRI of thoracic and lumbar obtained this morning, there is evidence of a questionable phlegmon or abscess of the thoracic lumbar spine. Progress Note: A&P Assessment and plan (1) Abdominal pain: Problem details: As above. GGT is only mildly elevated likely due to his history of hepatic steatosis. LFTs are normal. Procalcitonin is normal. CRP remains elevated.. No acidosis. No hematochezia or hematemesis. Actually no bowel movements at all even despite a suppository. Passing flatus and burping without vomiting or diarrhea. Status: Acute Assessment and Plan: Patient with improving abdominal distension and no pain at the time of examination. He is tolerating a diet and has return of bowel function. No surgical indication at this time. Sepsis is likely secondary to evidence of thoracic abscess/phlegmon. All other cares per hospitalist. Surgery to sign off.
--- NOTE | 2022-10-18 15:08 | P.DS_ITS ---
DS: Providers Provider Date Seen: 10/18/22 Date of admission: 10/15/22 23:56 Primary care physician: Jass La MD Admitting Clinician: Lavell Au MD Consults: 10/15/22 23:39 Consult to Respiratory Therapy [CONS] Routine Comment: Reason(s) for RT Consult:: Consult 10/15/22 23:45 Consult to Physician [CONS] Urgent Comment: Consulting Provider: Renee Luciano Has provider been notified: No Attending [facility] on [facility]: 10/18/22 DS: Diagnosis Discharge Diagnosis (1) Acute respiratory failure, unspecified whether with hypoxia or hypercapnia: Status: Acute Problem details: -high-flow O2. 30 L. 60%. I appreciate the help of RT. continue to spike fevers and persistent bacteremia noted.. Tachypnea and hypertension slightly improved today. PE has been ruled out. Progressive bilateral pleural effusions and consolidations. Likely compounded by BECKI, untreated and obesity hypoventilation syndrome. Etiology is MSSA pneumonia with empyema/bacteremia and phlegmon extending the prevertebral thoracic region. (2) Bilateral pleural effusion: Status: Acute Problem details: Likely empyema from bilateral airspace disease. (3) MSSA bacteremia: Status: Acute Problem details: Initially was on Zosyn and azithromycin. I added vancomycin when the 1st blood culture grew Gram-positive in clusters. When MSSA was identified I narrowed antibiotics to IV Ancef. Two sets of blood cultures have been positive and the 3rd is pending today, . He has continued to be febrile spiking usually at night between 101 and 103? F. (4) Phlegmon: Status: Acute Problem details: Found today on thoracic MRI this morning, 10/18/2022. Noncontrast study. Neuro surgery fought that this was not a spinal abscess. Thoracic surgery felt like this could be contiguous from his primary pulmonary source through to his prevertebral space. (5) Obesity hypoventilation syndrome: Status: Suspected Problem details: Likely this is the baseline with an acute process overlying. (6) Autism: Status: Acute Problem details: Noted. Mom states that his Depakote and gabapentin for mood stability has recently been held. She states that she did not see it therapeutic value. (7) Hepatic steatosis: Status: Acute Problem details: Noted DS: Summary Hospital Course Hospital Course: HOSPITALIST TRANSFER SUMMARY ATTENDING PHYSICIAN: Pooja Hernandez MD REASON FOR TRANSFER Acute hypoxic respiratory failure MSSA bacteremia, airspace disease, empyema, prevertebral phlegmon Profound autism Hypoventilation obesity syndrome Untreated BECKI BRIEF HOSPITAL COURSE: Chavo is a 42-year-old who presented 3 days ago with fever, malaise and nonspecific abdominal pain. Within 8 hours of admission he went from OxyMask at 8-10 L to high-flow nasal cannula oxygen. His current settings are 30 L at 60% FiO2. He does not tolerate mask wearing. We tried BiPAP he ripped it off. If he has not OxyMask he often takes it on and off. He has been tolerating the nasal cannula high-flow. Within the 1st 24 hours his 1st set of blood cultures turned positive with a Gram-positive bacteria that was subsequently identified as MSSA. We started vancomycin in addition to his admitting antibiotics of Zosyn and azithromycin. Despite these 3 antibiotics he continued to fever and turn his blood cultures positive. In search of a source for the EMS as a we checked a transthoracic echocardiogram which was reassuring. We repeated his chest abdomen pelvis. The airspace disease was less convincing on 10/17 as it was on 10/18. However on 10/18 we ordered a thoracic and lumbar MRI. We found imaging evidence of consolidative airspace disease, bilateral pleural effusions and prevertebral phlegmon collection. This is likely the source of his continued fevers and respiratory distress and positive blood cultures. On the afternoon of 10/18 the decision to moved tertiary care was made. In speaking with both neuro surgery, thoracic surgery, intensive care medicine we felt placing him at the MICU at [facility] would be the logical next step. SERVICES NOT AVAILABLE HERE THAT THIS PATIENT NEEDS: Infectious disease Pulmonary medicine Thoracic surgery Multi disciplinary care given his developmental delay ACCEPTING PHYSICIAN/SERVICE/LOCATION: Dr. Dwaine Tapia MEDICATIONS AT TIME OF TRANSFER: IV Ancef DRIPS/LINES: Timmons previously, patient was causing traumatic hematuria on the morning of 10/18 so this was withdrawn. Single IV access for his antibiotics and fluids High-flow nasal cannula O2 described above VITAL SIGN, MEDICATION, LAB/MICRO, IMAGING SUMMARY (full details available in account tabs or by records request) Last fever was the evening of 10/17/2022 102? F Blood pressure has been normal to hypertensive Pulse has come down nicely from the 1 teens to the 80s Respiratory rate 24 at rest greater than 30 with activity Satting 93% on high-flow nasal cannula oxygen This morning's labs, 10/19/2019 CBC 8.5, hemoglobin 10.7, platelets 194 VBG reflects a pH of 7.4, pCO2 52, HC03 35 Sodium 135, potassium 3.4 Normal renal function with a creatinine of 0.6 and a BUN of 9 Glucose 128 Mildly increased liver function tests with known history of hepatic steatosis Persistent elevation of his CRP 33.6 this morning CHF peptide 683 up from 385 yesterday Albumin 3.5, normal lipase Procalcitonin down trending 0.5 yesterday 0.4 today. Microbiology: Nasal swab negative for MRSA 2 sets of blood cultures growing Staph aureus, MSSA. Pansensitive. Urine culture was negative Blood culture drawn 10/18/2022 is negative to date Transthoracic echo 10/17/2022 Final Impressions: 1. Normal left ventricular size, normal wall thickness, normal global and regional systolic function, calculated EF of 58 %. 2. Right ventricular cavity size is normal, global systolic RV function is norm al. 3. No significant valve disease detected. Thoracic MRI without contrast 1. There is abnormal STIR signal hyperintensity in the prevertebral soft tissues at the T6-7 through T12-L1 levels that may represent infection/phlegmon. No evidence for discitis or osteomyelitis. No epidural abscess. 2. Bilateral pleural effusions and presumed consolidation or atelectasis in the lower lobes may be infectious. 3. No significant spinal canal stenosis or neural foramen narrowing. 4. No abnormal spinal cord signal. Lumbar MRI without contrast 1. Normal alignment. No acute osseous abnormality. 2. No discitis or osteomyelitis. No evidence for epidural abscess. 3. At L4-5 there is a small left neural foramina disc protrusion without significant spinal canal stenosis or neural foramina narrowing. CT chest abdomen pelvis 10/17/2022 1. Increasing bibasilar pleural effusions with adjacent compressive atelectasis versus infiltrates from comparison. Persistent central bronchial thickening and mediastinal/hilar adenopathy. 2. Mildly increased fluid distension of the distal small bowel and distal colon which may represent minimal enterocolitis change. There is hyperemia and thickening of the sigmoid colon with trace fluid seen in the lower quadrants, new from comparison. 3. Stable hepatomegaly and hepatic steatosis. REVIEW OF SYSTEMS Unchanged. PHYSICAL EXAM: CONSTITUTIONAL: VITAL SIGNS: see record. Exam unchanged from earlier with notable exceptions: Worsening rhonchi bilaterally. No specific spinal process palpated clinically. The skin is not erythematous or warm. There is no fluctuance noted. DISPOSITION: Transfer [facility]. Time spent on discharge >30 minutes. This includes speaking with accepting physician; family/patient and coordinating meds/drips for transfer Status at Discharge Functional status at discharge: independent ambulation Overall status at discharge: patient is not back to baseline Time Spent with Patient Time attestation: Total time spent providing and/or coordinating discharge services: Time spent: Greater than 30 minutes Exam Const: Vital Signs, click to edit/add: Vital Signs - 24 hr 10/17/22 16:00 10/17/22 17:00 10/17/22 18:00 Temperature 99.8 F H 99.2 F Pulse Rate Pulse Rate [Pulse Oximeter] 86 88 Respiratory Rate 22 24 Blood Pressure [Ri ght Arm] 160/101 H 168/107 H Pulse Oximetry 93 95 Oxygen Delivery Me thod High Flow Nasal Ca nnula High Flow Nasal Ca nnula Oxygen Flow Rate 20 25 Fraction of Inspir ed Oxygen 60 60 60 10/17/22 19:00 10/17/22 20:00 10/17/22 21:00 Temperature 99.9 F H Pulse Rate Pulse Rate [Pulse Oximeter] 82 Respiratory Rate 22 Blood Pressure [Ri ght Arm] 155/103 H Pulse Oximetry 96 Oxygen Delivery Me thod High Flow Nasal Ca nnula Oxygen Flow Rate 25 Fraction of Inspir ed Oxygen 60 60 60 10/17/22 22:23 10/17/22 22:15 10/17/22 23:00 Temperature 102.4 F H 102.4 F H Pulse Rate 73 Pulse Rate [Pulse Oximeter] 83 Respiratory Rate 26 H Blood Pressure [Ri ght Arm] 157/100 H Pulse Oximetry 94 Oxygen Delivery Me thod High Flow Nasal Ca nnula Oxygen Flow Rate Fraction of Inspir ed Oxygen 10/17/22 23:00 10/17/22 23:00 10/17/22 23:00 Temperature Pulse Rate Pulse Rate [Pulse Oximeter] Respiratory Rate 26 H Blood Pressure [Ri ght Arm] Pulse Oximetry 92 Oxygen Delivery Me thod Oxygen Flow Rate Fraction of Inspir ed Oxygen 60 10/17/22 23:00 10/18/22 00:00 10/18/22 03:00 Temperature 97.8 F Pulse Rate Pulse Rate [Pulse Oximeter] 74 78 Respiratory Rate 26 H 26 H 28 H Blood Pressure [Ri ght Arm] 143/100 H Pulse Oximetry 92 90 91 Oxygen Delivery Me thod High Flow Nasal Ca nnula High Flow Nasal Ca nnula High Flow Nasal Ca nnula Oxygen Flow Rate 25 25 25 Fraction of Inspir ed Oxygen 60 60 60 10/18/22 01:00 10/18/22 01:30 10/18/22 03:00 Temperature 98.6 F Pulse Rate Pulse Rate [Pulse Oximeter] 72 Respiratory Rate 26 H Blood Pressure [Ri ght Arm] Pulse Oximetry 91 Oxygen Delivery Me thod High Flow Nasal Ca nnula Oxygen Flow Rate Fraction of Inspir ed Oxygen 60 60 10/18/22 04:00 10/18/22 05:00 10/18/22 05:00 Temperature 98.2 F Pulse Rate Pulse Rate [Pulse Oximeter] 70 80 Respiratory Rate 26 H 24 Blood Pressure [Ri ght Arm] 127/86 Pulse Oximetry 92 94 Oxygen Delivery Me thod High Flow Nasal Ca nnula High Flow Nasal Ca nnula Oxygen Flow Rate 25 25 Fraction of Inspir ed Oxygen 60 60 60 10/18/22 06:00 10/18/22 07:21 10/18/22 07:47 Temperature 97.5 F L 99.4 F Pulse Rate 87 Pulse Rate [Pulse Oximeter] 78 76 Respiratory Rate 26 H 22 Blood Pressure [Ri ght Arm] 140/87 H 150/94 H Pulse Oximetry 92 94 Oxygen Delivery Me thod High Flow Nasal Ca nnula High Flow Nasal Ca nnula Oxygen Flow Rate 25 Fraction of Inspir ed Oxygen 60 10/18/22 07:47 10/18/22 08:00 10/18/22 08:00 Temperature Pulse Rate Pulse Rate [Pulse Oximeter] 87 Respiratory Rate 22 Blood Pressure [Ri ght Arm] Pulse Oximetry 94 Oxygen Delivery Me thod High Flow Nasal Ca nnula Oxygen Flow Rate 25 Fraction of Inspir ed Oxygen 65 65 10/18/22 09:27 10/18/22 11:00 10/18/22 12:44 Temperature 98.8 F Pulse Rate Pulse Rate [Pulse Oximeter] 83 Respiratory Rate 24 Blood Pressure [Ri ght Arm] 136/82 Pulse Oximetry 93 Oxygen Delivery Me thod High Flow Nasal Ca nnula Oxygen Flow Rate Fraction of Inspir ed Oxygen 60 60 10/18/22 13:00 Temperature Pulse Rate Pulse Rate [Pulse Oximeter] Respiratory Rate Blood Pressure [Ri ght Arm] Pulse Oximetry Oxygen Delivery Me thod Oxygen Flow Rate Fraction of Inspir ed Oxygen 60 DS: Data Data Completed and Pending Labs on day of discharge: Labs from last 24 hours 10/18/22 10/18/22 10/18/22 06:24 06:24 06:24 WBC 8.49 RBC 3.65 L Hgb 10.7 L Hct 30.8 L MCV 84 MCH 29 MCHC 35 RDW Coeff of Noe 13.1 Plt Count 194 Neut % (Auto) 64.5 Lymph % (Auto) 15.4 L Alpine % (Auto) 17.7 H Eos % (Auto) 0.7 Baso % (Auto) 0.5 Neut # (Auto) 5.48 Lymph # (Auto) 1.30 Alpine # (Auto) 1.50 H Eos # (Auto) 0.06 Baso # (Auto) 0.04 VBG pH 7.444 H VBG pCO2 52 H VBG pO2 33.3 VBG HCO3 35 H Sodium 135 Potassium 3.4 L Chloride 96 Carbon Dioxide 35 H BUN 9 Creatinine 0.6 Estimated Creat Clear 169.08 Estimated GFR 123 Glucose 128 H Calcium 8.3 L Ionized Calcium Tyrone 1.11 Magnesium 2.0 Total Bilirubin 0.7 GGT 119 H AST 84 H ALT 136 H Alkaline Phosphatase 61 C-Reactive Protein 23.6 H NT-Pro-B Natriuret Pep 683 Total Protein 6.9 Albumin 3.5 Lipase 36 Procalcitonin 0.41 10/17/22 07:45 WBC RBC Hgb Hct MCV MCH MCHC RDW Coeff of Noe Plt Count Neut % (Auto) Lymph % (Auto) Alpine % (Auto) Eos % (Auto) Baso % (Auto) Neut # (Auto) Lymph # (Auto) Alpine # (Auto) Eos # (Auto) Baso # (Auto) VBG pH VBG pCO2 VBG pO2 VBG HCO3 Sodium Potassium Chloride Carbon Dioxide BUN Creatinine Estimated Creat Clear Estimated GFR Glucose Calcium Ionized Calcium [place]one Magnesium Total Bilirubin GGT AST ALT Alkaline Phosphatase C-Reactive Protein NT-Pro-B Natriuret Pep Total Protein Albumin Lipase Procalcitonin 0.55 H Preliminary micro results at discharge 10/16/22 19:05 Blood Culture - Preliminary Blood Staphylococcus aureus 10/16/22 19:00 Blood Culture - Preliminary Blood Staphylococcus aureus 10/16/22 08:22 Blood Culture - Preliminary Blood Staphylococcus aureus 10/16/22 09:01 Blood Culture - Preliminary Blood Gram positive cocci in cluster Discharge Plan Discharge Disposition: [facility] Date of Admission: 10/15/22 23:56 Attending Provider on Discharge: Pooja Hernandez Primary Care Provider: Jass La Condition: Critical Oxygen: Yes Oxygen Delivery Method: HFNC 02 30L/60% Oxygen Flow Rate: HFNC 02 30L/60% Urinary Catheter: No
--- NOTE | 2022-10-18 17:41 | PC.NURSE ---
shift note: pt up sba to bathroom this a.m. alvarez dc'd intact this a.m @ 0900. IV SL @ 0900. Tele dc'd @ 0900. Pt ambulated with 8L per mask 200ft. RR 22-24 with sats averaging 93%. Pt increased on flow to 30L @65% fio2 this a.m per RT. LS remain crkls bibasilar. Pt medicated for epigastric pain / with prn morphine sulfate IV with relief. Pt medicated for nausea with relief. Pt has tympanic BS x4. Pt tolerating regular diet. pt burping and passing flatus. abd is distended but soft. IV replaced to lt hand from Lt AC. Report given to Carlitos at [facility] pre-transfer. Parents at bedside.
--- NOTE | 2022-10-18 17:48 | PC.NURSE ---
pt's home medications sent home with mother prior to transfer to [facility]
== END 2022-10-18 17:00 | disposition short-term general hospital (02) | DRG 177 ==
LOC: ED 23:14 → MEDSURG 23:56
PROVIDERS: Family Medicine; Admitting Provider Family Medicine; Emergency Provider Emergency Medicine; PCP Family Medicine; Visit Provider Family Medicine
DX: J15.211 Pneumonia due to Methicillin susceptible Staphylococcus aureus (principal); J85.1 Abscess of lung with pneumonia; J96.01 Acute respiratory failure with hypoxia; R78.81 Bacteremia; F84.0 Autistic disorder; E66.2 Morbid (severe) obesity with alveolar hypoventilation; J98.11 Atelectasis; J91.8 Pleural effusion in other conditions classified elsewhere; R10.11 Right upper quadrant pain; R10.13 Epigastric pain; F31.9 Bipolar disorder, unspecified; F42.9 Obsessive-compulsive disorder, unspecified; N32.89 Other specified disorders of bladder; R03.0 Elevated blood-pressure reading, without diagnosis of hypertension; K76.0 Fatty (change of) liver, not elsewhere classified; Z68.32 Body mass index [BMI] 32.0-32.9, adult; M10.9 Gout, unspecified; B95.61 Methicillin susceptible Staphylococcus aureus infection as the cause of diseases classified elsewhere
CPT/HCPCS: 36415; 36600; 51702; 71045; 71260; 72146; 72148; 74018; 74177; 76705; 80048; 80053; 80076; 81001; 82330; 82550; 82803; 82977; 83036; 83605; 83690; 83735; 83880; 84145; 84484; 85025; 86140; 86308; 87040; 87081; 87086; 87186; 87502; 87634; 87635; 93005; 93306; 94640; 94664; 94761; 97165; 99284; 99285; A9270; C9113; J0456; J0690; J1170; J1885; J2060; J2270; J2405; J2543; J3370; J7030; J7050; J7120; Q9967

== ENCOUNTER 2022-10-23 22:00 | Emergency (ER) | payer MEDICARE, SELFPAY ==
[2022-10-23 22:17] VITALS: BP 165/102; PULSE 84; RESP 18; TEMP 36.9; O2SAT 95; BMI 30.7
[2022-10-23 22:48] VITALS: BP 168/111; PULSE 80; O2SAT 93
[2022-10-23 22:49] VITALS: PULSE 84; O2SAT 94
[2022-10-23 22:50] VITALS: O2SAT 93
[2022-10-23 23:00] VITALS: PULSE 75; O2SAT 94
[2022-10-23 23:05] LABS: Lactate Sepsis w/Reflex* 1.6 mmol/L (0.5-1.9)
[2022-10-23 23:07] LABS: Basophils Percent Auto 0.3 % (0.0-3.0); Eosinophils Percent Auto 2.2 % (0.0-7.0); Hematocrit 35.4 % (37.0-53.0); Hemoglobin* 12.2 gm/dL (13.5-17.5); Immature Granulocytes Pct Auto 5.9 %; Lymphocytes Percent Auto 22.9 % (20-44); Mean Corpuscular HGB Conc 35 gm/dL (32-36); Mean Corpuscular Hemoglobin 29 pg (26-34); Mean Corpuscular Volume 84 fL (80-100); Monocytes Percent Auto 7.6 % (0.0-11.0); Neutrophils Percent Auto 61.1 % (42.0-72.0); Platelet Count* 293 K/uL (140-440); RDW Coefficient of Variation % 13.3 % (11.5-15.5); Red Blood Count 4.22 m/uL (4.30-5.90); White Blood Count* 11.61 K/uL (4.50-11.00)
[2022-10-23 23:13] LABS: Slide Review Reflex Yes
[2022-10-23 23:14] LABS: Slide Review Acceptable Review (Acceptable)
[2022-10-23 23:21] LABS: Albumin* 3.9 g/dL (3.3-5.0)
[2022-10-23 23:22] LABS: Chloride* 100 mmol/L (96-114); Potassium* 3.4 mmol/L (3.6-5.1); Sodium* 135 mmol/L (135-149)
[2022-10-23 23:24] VITALS: BP 157/122; PULSE 89; O2SAT 93
[2022-10-23 23:24] LABS: Aspartate Amino Transferase* 32 U/L (12-35); Bilirubin Direct* 0.3 mg/dL (0.0-0.5); Bilirubin Total* 0.5 mg/dL (0.1-1.5); Total Protein* 7.4 g/dL (6.0-8.3)
[2022-10-23 23:25] LABS: Alanine Aminotransferase* 59 U/L (4-50); Alkaline Phosphatase* 79 U/L (40-150); Blood Urea Nitrogen* 17 mg/dL (5-24); Carbon Dioxide* 28 mmol/L (20-32); Creatinine* 0.7 mg/dL (0.5-1.5); Est. Creatinine Clearance* 144.92; Estimated Glomerular Filt Rate 117 ml/min
[2022-10-23 23:26] LABS: Calcium* 9.1 mg/dL (8.4-10.6); Glucose* 165 mg/dL (60-115)
[2022-10-23 23:27] LABS: C Reactive Protein* 3.1 mg/dL (0.5-1.0)
--- NOTE | 2022-10-23 23:32 | ED_ITS ---
HPI - General Adult General Chief complaint: Unspecified Complaint, Adult Stated complaint: bleeding pic line Time Seen by Provider: 10/23/22 22:17 History of Present Illness HPI narrative: 42-year-old man with autism accompanied by his mother who has been caring for him since discharge from [facility] with a diagnosis of MSSA bacteremia with pneumonia source suspected. Pansensitive organism. ALDO was negative. PICC line was placed day prior to discharge. He continues to receive ofloxacin. Was admitted to this facility on October 15 with subsequent diagnosis of respiratory failure, underlying hypoventilation syndrome and abdominal pain. There was concern of prevertebral abscess although ovary later at [facility] of imaging suggested this was reactive inflammatory changes from adjacent pleural effusion and pulmonary infiltrate. There is also question of sigmoid volvulus however thought actually to be redundant colon with significant stool burden. He is not here with increased pain. During hospitalization with aggressive bowel therapy apparently did have large is cleanout. Is not more short of breath. Mom feels that he was discharged too soon. Mom is initially worried because his PICC line had had some blood in it. Discussed that this can back flow. She says to me initially that maybe she was over reacting I think with regard to the PICC line. She is also quite concerned that his blood pressures have been elevated again. That they had been in the 120s systolic shortly prior to discharge from [facility]. Noting over ones 60s systolic at home. Also elevated diastolic pressures. Reviewing records here during stay was generally over 90 diastolic with similar elevations in systolic. What was more noticeable in vitals on review was marked tachypnea. This has not been an issue again. White count was not elevated during time at this facility. Mom also notes that he has been complaining of some back pain. Admittedly is normally rather active though has been lying in hospital beds over the last week. She says that the pain was in the right mid low back she ind icates but has been moving around. I think this reflects concern of the elongated fluid collection she says that was described to her in the prevertebral space. Related Data Home Medications Medication Instructions Recorded Confirmed divalproex 500 mg tablet,extended 1,000 mg PO DAILY 10/14/22 10/23/22 release 24 hr fluvoxamine 100 mg tablet 150 mg PO BID 10/14/22 10/23/22 gabapentin 600 mg tablet 600 mg PO DAILY 10/14/22 10/23/22 risperidone 4 mg tablet 4 mg PO BID 10/14/22 10/23/22 diclofenac sodium 1 % topical gel 2 g topical QID PRN low back pain 10/23/22 10/23/22 lactulose 10 gram/15 mL oral 15 ml PO 3XD PRN constipation 10/23/22 10/23/22 solution naproxen 500 mg tablet 500 mg PO BID PRN 10/23/22 10/23/22 ondansetron HCl 4 mg tablet 4 mg PO Q6H 10/23/22 10/23/22 sennosides 8.6 mg-docusate sodium 2 tab PO BID 10/23/22 10/23/22 50 mg tablet (Senexon-S) Allergies Allergy/AdvReac Type Severity Reaction Status Date / Time No Known Drug Allergies Allergy Verified 10/23/22 22:20 Review of Systems Status of ROS: Reports: 6 or more systems reviewed and unremarkable except as noted in History and below PFSH [facility], LAT[facility] Medical History Autism Bacteremia Bipolar disorder Gout Hepatic steatosis Obesity Obesity hypoventilation syndrome Obstructive sleep apnea OCD (obsessive compulsive disorder) Surgical History History of appendectomy Family History Father High cholesterol Social History Narrative: He lives with his parents. Limited verbal communication secondary to autism. Mother reports that he does have excessive eating and it is hard to control is oral intake. The lock the refrigerator. Smoking Status: Never smoker Do you use any of these nicotine containing products: None Second hand tobacco smoke exposure: No How often do you have a drink containing alcohol: never How often do you have six or more drinks on one occasion: Never AUDIT-C Alcohol total score: 0 Non-prescribed substance use: denies use Caffeine: Yes (Soda) service: No Exam Narrative: Exam Narrative: Appears to be of good energy. NAD. Answers quickly and vigorously yes or no to questions. Says is not having any pain. Mom seems to indicate that his answers are not reliable. Is breathing easily. Lungs appear to be clear. Examination of the back is without midline tenderness. He is a little sore to palpation in the right mid perispinal/back musculature. Heart is in a regular rate and rhythm. Abdomen is quite protuberant and diffusely tympanitic but nontender. Moving all extremities without difficulty. Mild lower extremity dependent edema. PICC line in the right arm appears to be free of blood at this point. (was noted to flush well) There is no surrounding inflammatory change. Cranial nerves 2-12 look to be intact. Eyes are bright. Const: Vital Signs, click to edit/add: Vital Signs - 24 hr 10/23/22 22:17 10/23/22 22:50 10/23/22 22:48 Temperature 98.4 F Pulse Rate 80 Pulse Rate [Right Pulse Oximeter] 84 Respiratory Rate 18 Blood Pressure 168/111 H Blood Pressure [Le ft Forearm] 165/102 H Pulse Oximetry 95 93 93 Oxygen Delivery Me thod Room Air 10/23/22 22:49 10/23/22 23:00 10/23/22 23:24 Temperature Pulse Rate 84 75 89 Pulse Rate [Right Pulse Oximeter] Respiratory Rate Blood Pressure 157/122 H Blood Pressure [Le ft Forearm] Pulse Oximetry 94 94 93 Oxygen Delivery Me thod 10/24/22 00:53 10/24/22 00:53 Temperature 98.0 F 98.0 F Pulse Rate Pulse Rate [Right Pulse Oximeter] 87 87 Respiratory Rate 18 18 Blood Pressure Blood Pressure [Le ft Forearm] 155/99 H 155/99 H Pulse Oximetry 93 Oxygen Delivery Me thod Room Air Documenting provider has reviewed patient's vital signs: yes Course Vital Signs Vital signs: Initial Vital Signs Temperature 98.4 F 10/23/22 22:17 Temperature Source Temporal Artery Scan 10/23/22 22:17 Pulse Rate 84 10/23/22 22:17 Respiratory Rate 18 10/23/22 22:17 Blood Pressure 165/102 H 10/23/22 22:17 Blood Pressure Mean 123 10/23/22 22:17 Blood Pressure Position Sitting 10/23/22 22:17 Pulse Oximetry 95 10/23/22 22:17 Oxygen Delivery Method 10/23/22 22:17 Vital Signs Temperature 98.4 F 10/23/22 22:17 Pulse Rate 84 10/23/22 22:17 Respiratory Rate 18 10/23/22 22:17 Blood Pressure 165/102 H 10/23/22 22:17 Pulse Oximetry 95 10/23/22 22:17 Oxygen Delivery Method 10/23/22 22:17 Temperature 98.0 F 10/24/22 00:53 Pulse Rate 87 10/24/22 00:53 Respiratory Rate 18 10/24/22 00:53 Blood Pressure 155/99 H 10/24/22 00:53 Pulse Oximetry 93 10/24/22 00:53 Oxygen Delivery Method 10/24/22 00:53 Medical Decision Making MDM Narrative Medical decision making narrative: I appreciate moms concerns. Does not appear that Estrellita demonstrated hypotension in the setting of bacteremia. The PICC line appears to be functioning well. Overall looks markedly better than initial arrival here as described about a week ago. Does not appear to be in distress. I think monitoring of vitals along with rechecking labs and blood cultures would be in order. White count mildly elevated though was normal when markedly more sick. crp a little elevated. procalcitonin low. transaminases improved. normal lactate. i think overall reassuring. spent a while in conversation on number of occasions with mom (and estrellita) Continues to run rather elevated blood pressures. Mom has been watching and noting him to be definitely more agitated than usual. I wonder if this might be driving some of his elevated pressures. Mom and I have decided to give him a dose of Ativan which he also has available at home. see pt dc plan Lab Data Lab results reviewed: Yes I reviewed the patient's lab results Labs: Lab Results 10/23/22 10/23/22 10/23/22 Range/Units 23:00 23:00 23:00 WBC 11.61 H (4.50-11.00) K/uL RBC 4.22 L (4.30-5.90) m/uL Hgb 12.2 L (13.5-17.5) gm/dL Hct 35.4 L (37.0-53.0) % MCV 84 (80-100) fL MCH 29 (26-34) pg MCHC 35 (32-36) gm/dL RDW Coeff of Noe 13.3 (11.5-15.5) % Plt Count 293 (140-440) K/uL Neut % (Auto) 61.1 (42.0-72.0) % Lymph % (Auto) 22.9 (20-44) % [place] % (Auto) 7.6 (0.0-11.0) % Eos % (Auto) 2.2 (0.0-7.0) % Baso % (Auto) 0.3 (0.0-3.0) % Neut # (Auto) 7.10 H (1.7-7.0) K/uL Lymph # (Auto) 2.70 (0.90-2.90) K/uL [place] # (Auto) 0.90 (0.00-0.90) K/UL Eos # (Auto) 0.30 (0.00-0.50) K/uL Baso # (Auto) 0.00 (0.00-0.30) K/uL Diff Slide Review Acceptable Review (Acceptable) Sodium (135-149) mmol/L Potassium (3.6-5.1) mmol/L Chloride (96-114) mmol/L Carbon Dioxide (20-32) mmol/L BUN (5-24) mg/dL Creatinine (0.5-1.5) mg/dL Estimated Creat Clear Estimated GFR ml/min Glucose (60-115) mg/dL Calcium (8.4-10.6) mg/dL Total Bilirubin 0.5 (0.1-1.5) mg/dL Direct Bilirubin 0.3 (0.0-0.5) mg/dL AST 32 (12-35) U/L ALT 59 H (4-50) U/L Alkaline Phosphatase 79 (40-150) U/L Lactate Baseline (0.5-1.9) mmol/L C-Reactive Protein 3.1 H (0.5-1.0) mg/dL Total Protein 7.4 (6.0-8.3) g/dL Albumin 3.9 (3.3-5.0) g/dL Procalcitonin 0.08 (<0.50) ng/mL 10/23/22 10/23/22 Range/Units 23:00 23:00 WBC (4.50-11.00) K/uL RBC (4.30-5.90) m/uL Hgb (13.5-17.5) gm/dL Hct (37.0-53.0) % MCV (80-100) fL MCH (26-34) pg MCHC (32-36) gm/dL RDW Coeff of Noe (11.5-15.5) % Plt Count (140-440) K/uL Neut % (Auto) (42.0-72.0) % Lymph % (Auto) (20-44) % [place] % (Auto) (0.0-11.0) % Eos % (Auto) (0.0-7.0) % Baso % (Auto) (0.0-3.0) % Neut # (Auto) (1.7-7.0) K/uL Lymph # (Auto) (0.90-2.90) K/uL [place] # (Auto) (0.00-0.90) K/UL Eos # (Auto) (0.00-0.50) K/uL Baso # (Auto) (0.00-0.30) K/uL Diff Slide Review (Acceptable) Sodium 135 (135-149) mmol/L Potassium 3.4 L (3.6-5.1) mmol/L Chloride 100 (96-114) mmol/L Carbon Dioxide 28 (20-32) mmol/L BUN 17 (5-24) mg/dL Creatinine 0.7 (0.5-1.5) mg/dL Estimated Creat Clear 144.92 Estimated GFR 117 ml/min Glucose 165 H (60-115) mg/dL Calcium 9.1 (8.4-10.6) mg/dL Total Bilirubin (0.1-1.5) mg/dL Direct Bilirubin (0.0-0.5) mg/dL AST (12-35) U/L ALT (4-50) U/L Alkaline Phosphatase (40-150) U/L Lactate Baseline 1.6 (0.5-1.9) mmol/L C-Reactive Protein (0.5-1.0) mg/dL Total Protein (6.0-8.3) g/dL Albumin (3.3-5.0) g/dL Procalcitonin (<0.50) ng/mL Discharge Plan Discharge Clinical Impression: Elevated blood pressure reading, Back pain, Agitation Patient Disposition: Home w/ Parent or Adult Condition: Stable Additional Instructions: I would continue to monitor closely. I think it is reasonable that you came in to get checked out. I wonder if some of these elevated blood pressures are due to stress. Continue to monitor. Can use your Ativan/lorazepam at home if needed as prescribed. Blood cultures are pending here again. Return for persistently increased rate/work of breathing, increasing pain, fever. Prescriptions: No Action risperidone 4 mg tablet 4 mg PO BID Label Comments: TAKE ONE TABLET BY MOUTH TWICE DAILY gabapentin 600 mg tablet 600 mg PO DAILY Label Comments: TAKE ONE TABLET BY MOUTH ONE TIME DAILY fluvoxamine 100 mg tablet 150 mg PO BID Label Comments: take 1.5 tablets by mouth twice daily. 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
--- NOTE | 2022-10-23 23:35 | ED.NURSE ---
This board writer attempted to perform COVID/Flu/RSV swab on pt. Pt's mother declined triple swab stating He doesn't have COVID, I'm not comfortable with that. Dr. Pennington informed.
[2022-10-23 23:41] LABS: Procalcitonin* 0.08 ng/mL (<0.50)
[2022-10-24] MEDS: LORazepam 2 MG/ML inj 0.5 MG IVP (00:48)
[2022-10-24 00:53] VITALS: BP 155/99; PULSE 87; RESP 18; TEMP 36.7; O2SAT 93
== END 2022-10-24 00:54 | disposition home or self-care (01) ==
PROVIDERS: Emergency Provider Family Medicine; PCP Family Medicine
DX: R03.0 Elevated blood-pressure reading, without diagnosis of hypertension (principal); M54.9 Dorsalgia, unspecified; R45.1 Restlessness and agitation
CPT/HCPCS: 36415; 80048; 80076; 81001; 83605; 84145; 85025; 86140; 87040; 87502; 87634; 87635; 94761; 96374; 99284; J2060

== ENCOUNTER 2022-10-30 11:24 | Emergency (ER) | payer MEDICARE, SELFPAY ==
[2022-10-30 11:33] VITALS: BP 124/100; PULSE 73; RESP 20; TEMP 36.3; O2SAT 95; BMI 30.7
--- NOTE | 2022-10-30 11:52 | CRLHL7_ITS ---
For Patients: As a result of the Century Cures Act, medical imaging exams and procedure reports are released immediately into your electronic medical record. You may view this report before your referring provider. If you have questions, please contact your health care provider. INDICATION: Swelling with PICC line. COMPARISON: None. TECHNIQUE: A compression venous ultrasound exam was performed of the right upper extremity using downey-scale imaging, color Doppler, and spectral Doppler analysis. FINDINGS: Sonographic imaging of the right upper extremity demonstrates normal compressibility and color Doppler venous blood flow within the internal jugular, subclavian, axillary, brachial, basilic, cephalic, radial, and ulnar veins. A segment of the brachial vein was not visualized due to overlying bandage. PICC line in place. The contralateral left internal jugular vein is patent and negative for thrombus. IMPRESSION: Negative for acute DVT in the right upper extremity. Dictated by Manasa Gallardo MD @ 10/30/2022 1:50:20 PM (Electronically Signed)
--- NOTE | 2022-10-30 11:55 | ED.GENADULT ---
HPI - General Adult General Time Seen by Provider: 11:55 Date Seen: 10/30/22 Chief complaint: Extremity Pain/Injury, Upper Stated complaint: Picline malfunctioning Time Seen by Provider: 10/30/22 11:35 Source: patient Mode of arrival: wheelchair Limitations: physical limitation History of Present Illness HPI narrative: Patient is a 42 year white male autistic patient who has had an MRSA infection, site unknown. He was hospitalized here and then and transferred to [facility] for ICU care. He had a PICC line placed at within the last week. He has home care infusions of oxacillin per his mother. The home care nurse suggested his PICC line and since then it has been seems to have been leaking, she also notices arm is swollen. His demeanor has been a little more agitated. He has had no fevers that we know of. She is not certain he has got the medication for the last day or 2. He is afebrile with a good O2 sat. Related Data Home Medications Medication Instructions Recorded Confirmed divalproex 500 mg tablet,extended 1,000 mg PO DAILY 10/14/22 10/23/22 release 24 hr fluvoxamine 100 mg tablet 150 mg PO BID 10/14/22 10/23/22 gabapentin 600 mg tablet 600 mg PO DAILY 10/14/22 10/23/22 risperidone 4 mg tablet 4 mg PO BID 10/14/22 10/23/22 diclofenac sodium 1 % topical gel 2 g topical QID PRN low back pain 10/23/22 10/23/22 lactulose 10 gram/15 mL oral 15 ml PO 3XD PRN constipation 10/23/22 10/23/22 solution naproxen 500 mg tablet 500 mg PO BID PRN 10/23/22 10/23/22 ondansetron HCl 4 mg tablet 4 mg PO Q6H 10/23/22 10/23/22 sennosides 8.6 mg-docusate sodium 2 tab PO BID 10/23/22 10/23/22 50 mg tablet (Senexon-S) Allergies Allergy/AdvReac Type Severity Reaction Status Date / Time No Known Drug Allergies Allergy Verified 10/30/22 11:33 Review of Systems Status of ROS: Reports: 6 or more systems reviewed and unremarkable except as noted in History and below [facility] Medical History Autism Bacteremia Bipolar disorder Gout Hepatic steatosis Obesity Obesity hypoventilation syndrome Obstructive sleep apnea OCD (obsessive compulsive disorder) Surgical History History of appendectomy Family History Father High cholesterol Social History Narrative: He lives with his parents. Limited verbal communication secondary to autism. Mother reports that he does have excessive eating and it is hard to control is oral intake. The lock the refrigerator. Smoking Status: Never smoker Do you use any of these nicotine containing products: None Second hand tobacco smoke exposure: No How often do you have a drink containing alcohol: never How often do you have six or more drinks on one occasion: Never AUDIT-C Alcohol total score: 0 Non-prescribed substance use: denies use Caffeine: Yes (Soda) service: No Exam Narrative: Exam Narrative: Objective: Vital signs unremarkable other than slightly elevated diastolic pressure Patient is alert noncyanotic. His right arm shows no redness or erythema around the PICC line site his arm seems a little swollen around the PICC line area. I do not see any obvious redness or cellulitic change. He has got a good distal pulse the right upper extremity. He has got good peripheral perfusion noted Const: Vital Signs, click to edit/add: Vital Signs - 24 hr 10/30/22 11:33 Temperature 97.3 F L Pulse Rate [Pulse Oximeter] 73 Respiratory Rate 20 Blood Pressure [Le ft Upper Arm] 124/100 H Pulse Oximetry 95 Oxygen Delivery Me thod Room Air Course Vital Signs Vital signs: Initial Vital Signs Temperature 97.3 F L 10/30/22 11:33 Temperature Source Temporal Artery Scan 10/30/22 11:33 Pulse Rate 73 10/30/22 11:33 Pulse Rhythm Regular 10/30/22 11:33 Respiratory Rate 20 10/30/22 11:33 Blood Pressure 124/100 H 10/30/22 11:33 Blood Pressure Mean 108 10/30/22 11:33 Blood Pressure Position Supine 10/30/22 11:33 Pulse Oximetry 95 10/30/22 11:33 Oxygen Delivery Method Room Air 10/30/22 11:33 Vital Signs Temperature 97.3 F L 10/30/22 11:33 Pulse Rate 73 10/30/22 11:33 Respiratory Rate 20 10/30/22 11:33 Blood Pressure 124/100 H 10/30/22 11:33 Pulse Oximetry 95 10/30/22 11:33 Oxygen Delivery Method Room Air 10/30/22 11:33 Temperature 97.3 F L 10/30/22 11:33 Pulse Rate 73 10/30/22 11:33 Respiratory Rate 20 10/30/22 11:33 Blood Pressure 124/100 H 10/30/22 11:33 Pulse Oximetry 95 10/30/22 11:33 Oxygen Delivery Method Room Air 10/30/22 11:33 Medical Decision Making MDM Narrative Medical decision making narrative: Patient is a 42 year white male with autism who has a PICC line on the right arm, and he has been getting oxacillin infusion for MRSA infection per [facility]. At this point there was concern about his oxacillin not infusing, his PICC line not working and leaking. I think this point be mcadams to check his blood, blood culture, changes PICC line. Have PICC line placement assessment. Will also for completeness get an ultrasound of his right upper extremity make sure there is no clotting. Addendum: Patient preliminarily has a negative ultrasound of the right upper extremity. Will consult with PICC line staff for removal and placement of a new PICC line. Labs thus far look reassuring with a hemoglobin of 12.3 white count 5700. Addendum: PICC line nurse came and expertly change the PICC line, ultrasound and x-ray been done. If x-rays confirmed with good placement will discharge patient home his mom feels comfortable infusing his ox is cillin. The patient's x-ray by my read shows as PICC lines a little distal toes the PICC nurse pulled that back about a cm already. Return as needed Lab Data Labs: Lab Results 10/30/22 Range/Units 12:08 WBC 5.70 (4.50-11.00) K/uL RBC 4.25 L (4.30-5.90) m/uL Hgb 12.3 L (13.5-17.5) gm/dL Hct 36.5 L (37.0-53.0) % MCV 86 (80-100) fL MCH 29 (26-34) pg MCHC 34 (32-36) gm/dL RDW Coeff of Noe 13.5 (11.5-15.5) % Plt Count 289 (140-440) K/uL Neut % (Auto) 52.5 (42.0-72.0) % Lymph % (Auto) 33.3 (20-44) % [place] % (Auto) 9.8 (0.0-11.0) % Eos % (Auto) 3.3 (0.0-7.0) % Baso % (Auto) 0.9 (0.0-3.0) % Neut # (Auto) 2.99 (1.7-7.0) K/uL Lymph # (Auto) 1.90 (0.90-2.90) K/uL [place] # (Auto) 0.60 (0.00-0.90) K/UL Eos # (Auto) 0.19 (0.00-0.50) K/uL Baso # (Auto) 0.05 (0.00-0.30) K/uL Sodium 138 (135-149) mmol/L Potassium 4.1 (3.6-5.1) mmol/L Chloride 104 (96-114) mmol/L Carbon Dioxide 27 (20-32) mmol/L BUN 12 (5-24) mg/dL Creatinine 0.6 (0.5-1.5) mg/dL Estimated Creat Clear 169.08 Estimated GFR 123 ml/min Glucose 100 (60-115) mg/dL Calcium 9.3 (8.4-10.6) mg/dL Total Bilirubin 0.7 (0.1-1.5) mg/dL Direct Bilirubin 0.3 (0.0-0.5) mg/dL AST 25 (12-35) U/L ALT 35 (4-50) U/L Alkaline Phosphatase 80 (40-150) U/L C-Reactive Protein 1.7 H (0.5-1.0) mg/dL Total Protein 7.7 (6.0-8.3) g/dL Albumin 4.1 (3.3-5.0) g/dL Discharge Plan Discharge Clinical Impression: PICC line infiltration Patient Disposition: Home w/ Parent or Adult Condition: Improved Additional Instructions: Continue antibiotic infusions at home, return as needed. Update primary care as needed Activity Level: No Restrictions Discharge Diet: Regular Prescriptions: No Action risperidone 4 mg tablet 4 mg PO BID Patient Comments: TAKE ONE TABLET BY MOUTH TWICE DAILY gabapentin 600 mg tablet 600 mg PO DAILY Patient Comments: TAKE ONE TABLET BY MOUTH ONE TIME DAILY fluvoxamine 100 mg tablet 150 mg PO BID Patient Comments: take 1.5 tablets by mouth twice daily. 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
[2022-10-30 12:27] LABS: Basophils Absolute Auto 0.05 K/uL (0.00-0.30); Basophils Percent Auto 0.9 % (0.0-3.0); Eosinophils Absolute Auto 0.19 K/uL (0.00-0.50); Eosinophils Percent Auto 3.3 % (0.0-7.0); Hematocrit 36.5 % (37.0-53.0); Hemoglobin* 12.3 gm/dL (13.5-17.5); Immature Granulocytes Abs Auto 0.01 K/uL (0.00-0.30); Immature Granulocytes Pct Auto 0.2 %; Lymphocytes Percent Auto 33.3 % (20-44); Mean Corpuscular HGB Conc 34 gm/dL (32-36); Mean Corpuscular Hemoglobin 29 pg (26-34); Mean Corpuscular Volume 86 fL (80-100); Monocytes Percent Auto 9.8 % (0.0-11.0); Neutrophils Absolute Auto 2.99 K/uL (1.7-7.0); Neutrophils Percent Auto 52.5 % (42.0-72.0); Platelet Count* 289 K/uL (140-440); RDW Coefficient of Variation % 13.5 % (11.5-15.5); Red Blood Count 4.25 m/uL (4.30-5.90)
[2022-10-30 12:36] LABS: Slide Review Reflex No
[2022-10-30 12:49] LABS: Chloride* 104 mmol/L (96-114); Sodium* 138 mmol/L (135-149)
[2022-10-30 12:50] LABS: Potassium* 4.1 mmol/L (3.6-5.1)
[2022-10-30 12:51] LABS: Albumin* 4.1 g/dL (3.3-5.0)
[2022-10-30 12:52] LABS: Creatinine* 0.6 mg/dL (0.5-1.5); Est. Creatinine Clearance* 169.08; Estimated Glomerular Filt Rate 123 ml/min
[2022-10-30 12:53] LABS: Blood Urea Nitrogen* 12 mg/dL (5-24); Carbon Dioxide* 27 mmol/L (20-32); Glucose* 100 mg/dL (60-115)
[2022-10-30 12:54] LABS: Alanine Aminotransferase* 35 U/L (4-50); Alkaline Phosphatase* 80 U/L (40-150); Aspartate Amino Transferase* 25 U/L (12-35); Bilirubin Direct* 0.3 mg/dL (0.0-0.5); Bilirubin Total* 0.7 mg/dL (0.1-1.5); Calcium* 9.3 mg/dL (8.4-10.6); Total Protein* 7.7 g/dL (6.0-8.3)
[2022-10-30 12:56] LABS: C Reactive Protein* 1.7 mg/dL (0.5-1.0)
--- NOTE | 2022-10-30 13:21 | CRLHL7_ITS ---
For Patients: As a result of the Cures Act, medical imaging exams and procedure reports are released immediately into your electronic medical record. You may view this report before your referring provider. If you have questions, please contact your health care provider. Indication: PICC line placement. Technique: Ultrasound left upper extremity. Comparison: None. Findings/Impression: Ultrasound guidance was provided for purposes of a PICC line placement. Dictated by Kiet Adan MD @ 11/05/2022 7:36:53 AM (Electronically Signed)
--- NOTE | 2022-10-30 13:21 | CRLHL7_ITS ---
For Patients: As a result of the Century Cures Act, medical imaging exams and procedure reports are released immediately into your electronic medical record. You may view this report before your referring provider. If you have questions, please contact your health care provider. INDICATION: Verify PICC. TECHNIQUE: Chest 1 views. COMPARISON: None. FINDINGS: Cardiovascular and mediastinum: Heart size and vasculature are normal in caliber and appearance. Right PICC with tip in the mid SVC. Lungs and pleural spaces: Lungs are clear. No sign of infiltrate or mass. No sign of pleural effusion. No pneumothorax. Bones and soft tissues: No significant findings. IMPRESSION: Right PICC with tip in the mid SVC. Dictated by Nico Lauren MD @ 10/30/2022 2:53:27 PM (Electronically Signed)
== END 2022-10-30 15:00 | disposition home or self-care (01) ==
PROVIDERS: Emergency Provider Family Medicine; PCP Family Medicine
DX: T82.534A Leakage of infusion catheter, initial encounter (principal)
CPT/HCPCS: 36415; 36573; 80048; 80076; 85025; 86140; 87040; 93971; 99284

== ENCOUNTER 2022-11-05 14:09 | Outpatient (REF) | payer MEDICARE, SELFPAY ==
[2022-11-05 15:01] LABS: Basophils Absolute Auto 0.03 K/uL (0.00-0.30); Basophils Percent Auto 0.6 % (0.0-3.0); Eosinophils Absolute Auto 0.27 K/uL (0.00-0.50); Eosinophils Percent Auto 5.4 % (0.0-7.0); Hematocrit 36.2 % (37.0-53.0); Hemoglobin* 12.5 gm/dL (13.5-17.5); Immature Granulocytes Abs Auto 0.01 K/uL (0.00-0.30); Immature Granulocytes Pct Auto 0.2 %; Lymphocytes Absolute Auto 1.95 K/uL (0.90-2.90); Mean Corpuscular HGB Conc 35 gm/dL (32-36); Mean Corpuscular Hemoglobin 29 pg (26-34); Mean Corpuscular Volume 85 fL (80-100); Neutrophils Absolute Auto 2.14 K/uL (1.7-7.0); Neutrophils Percent Auto 42.8 % (42.0-72.0); Platelet Count* 276 K/uL (140-440); RDW Coefficient of Variation % 13.7 % (11.5-15.5); Red Blood Count 4.26 m/uL (4.30-5.90)
[2022-11-05 15:12] LABS: Slide Review Reflex No
[2022-11-05 17:16] LABS: Alanine Aminotransferase* 29 U/L (4-50); Creatinine* 0.6 mg/dL (0.5-1.5); Estimated Glomerular Filt Rate 123 ml/min
== END 2022-11-05 14:10 | disposition home or self-care (01) ==
LOC: NPINS 14:09
PROVIDERS: PCP Family Medicine; Visit Provider Internal Medicine
DX: A41.01 Sepsis due to Methicillin susceptible Staphylococcus aureus (principal)
CPT/HCPCS: 82565; 84460; 85025

== ENCOUNTER 2022-11-12 14:00 | Outpatient (REF) | payer MEDICARE, SELFPAY ==
[2022-11-12 15:47] LABS: Sodium* 137 mmol/L (135-149)
[2022-11-12 15:50] LABS: Creatinine* 0.5 mg/dL (0.5-1.5); Estimated Glomerular Filt Rate 130 ml/min
[2022-11-12 15:51] LABS: Alanine Aminotransferase* 38 U/L (4-50)
[2022-11-12 15:57] LABS: Basophils Percent Auto 1.1 % (0.0-3.0); Eosinophils Percent Auto 7.2 % (0.0-7.0); Hematocrit 37.9 % (37.0-53.0); Immature Granulocytes Pct Auto 0.2 %; Mean Corpuscular HGB Conc 34 gm/dL (32-36); Mean Corpuscular Hemoglobin 29 pg (26-34); Mean Corpuscular Volume 85 fL (80-100); Monocytes Percent Auto 12.6 % (0.0-11.0); Neutrophils Percent Auto 41.9 % (42.0-72.0); Platelet Count* 168 K/uL (140-440); RDW Coefficient of Variation % 13.9 % (11.5-15.5); Red Blood Count 4.48 m/uL (4.30-5.90); White Blood Count* 4.43 K/uL (4.50-11.00)
[2022-11-12 16:00] LABS: Slide Review Reflex No
== END 2022-11-12 14:01 | disposition home or self-care (01) ==
LOC: NPINS 14:00
PROVIDERS: PCP Family Medicine; Visit Provider Internal Medicine
DX: A41.01 Sepsis due to Methicillin susceptible Staphylococcus aureus (principal)
CPT/HCPCS: 82565; 84132; 84295; 84460; 85025

== ENCOUNTER 2022-11-19 14:25 | Outpatient (REF) | payer MEDICARE, SELFPAY ==
[2022-11-19 14:47] LABS: Basophils Absolute Auto 0.04 K/uL (0.00-0.30); Basophils Percent Auto 0.9 % (0.0-3.0); Eosinophils Absolute Auto 0.18 K/uL (0.00-0.50); Hemoglobin* 13.2 gm/dL (13.5-17.5); Immature Granulocytes Abs Auto 0.01 K/uL (0.00-0.30); Immature Granulocytes Pct Auto 0.2 %; Lymphocytes Percent Auto 35.2 % (20-44); Mean Corpuscular HGB Conc 35 gm/dL (32-36); Mean Corpuscular Hemoglobin 29 pg (26-34); Mean Corpuscular Volume 84 fL (80-100); Neutrophils Percent Auto 50.7 % (42.0-72.0); Platelet Count* 187 K/uL (140-440); RDW Coefficient of Variation % 13.9 % (11.5-15.5); Red Blood Count 4.51 m/uL (4.30-5.90); White Blood Count* 4.54 K/uL (4.50-11.00)
[2022-11-19 14:50] LABS: Slide Review Reflex No
[2022-11-19 14:59] LABS: Sodium* 136 mmol/L (135-149)
[2022-11-19 15:00] LABS: Potassium* 3.8 mmol/L (3.6-5.1)
[2022-11-19 15:03] LABS: Alanine Aminotransferase* 33 U/L (4-50); Creatinine* 0.6 mg/dL (0.5-1.5); Estimated Glomerular Filt Rate 123 ml/min
== END 2022-11-19 14:26 | disposition home or self-care (01) ==
LOC: NPINS 14:25
PROVIDERS: PCP Family Medicine; Visit Provider Internal Medicine
DX: A41.01 Sepsis due to Methicillin susceptible Staphylococcus aureus (principal)
CPT/HCPCS: 82565; 84132; 84295; 84460; 85025

== ENCOUNTER 2022-12-08 22:45 | Emergency (ER) | payer MEDICARE, SELFPAY ==
[2022-12-08 23:00] VITALS: BP 156/104; PULSE 114; RESP 36; TEMP 36.9; O2SAT 94
--- NOTE | 2022-12-08 23:43 | CRLHL7_ITS ---
For Patients: As a result of the Century Cures Act, medical imaging exams and procedure reports are released immediately into your electronic medical record. You may view this report before your referring provider. If you have questions, please contact your health care provider. INDICATION: Cough TECHNIQUE: Chest 2 views. COMPARISON: September 01, 2022 FINDINGS: Cardiovascular and mediastinum: Heart size and vasculature are normal in caliber and appearance. Mediastinum is within normal limits. Interval removal of right-sided PICC catheter Lungs and pleural spaces: Lungs are clear. No sign of infiltrate or mass. No sign of pleural effusion. No pneumothorax. Bones and soft tissues: No significant findings. IMPRESSION: No sign of acute disease. Dictated by Riya Guillaume MD @ 12/09/2022 12:56:14 AM (Electronically Signed)
--- NOTE | 2022-12-08 23:44 | ED_ITS ---
HPI - General Adult General Chief complaint: Cough Stated complaint: respiratory issues, concern if its pneumonia Time Seen by Provider: 12/08/22 23:37 History of Present Illness HPI narrative: Patient c/o fever that started this evening and worsening cough 10 days. Patient just completed a month-long course of IV abnx for an MRSA bacteremia and paravertebral spinal inflammation T8 -10 on 11/28/22. Patient was hospitalized at [facility] prior to that - please see [place] records. Patient has been given tylenol and cough syrup at home without relief. Patient 's mother is concerned about returning pnx. Patient has h/ o autism and his mother completes the majority of the triage 42-year-old young man presenting to the emergency department accompanied by his mother who is quite involved in his care giving. As moderate to severe autism. Had an MSSA bacteremia paravertebral spinal inflammation the mom is also reporting a pneumonia and is worried that this might be returning. Have been trying [id number]-ozoftes cough syrups. Admittedly there is some URI/head cold symptoms going around the family. Does also have some allergies. I ask Chavo how he is feeling and he notes that he has lost his voice a little bit. Temperature reportedly measured to 100.4. Related Data Home Medications Medication Instructions Recorded Confirmed divalproex 500 mg tablet,extended 1,000 mg PO DAILY 10/14/22 12/08/22 release 24 hr fluvoxamine 100 mg tablet 150 mg PO BID 10/14/22 12/08/22 gabapentin 600 mg tablet 600 mg PO DAILY 10/14/22 12/08/22 risperidone 4 mg tablet 4 mg PO BID 10/14/22 12/08/22 diclofenac sodium 1 % topical gel 2 g topical QID PRN low back pain 10/23/22 12/08/22 lactulose 10 gram/15 mL oral 15 ml PO 3XD PRN constipation 10/23/22 12/08/22 solution naproxen 500 mg tablet 500 mg PO BID PRN 10/23/22 12/08/22 sennosides 8.6 mg-docusate sodium 2 tab PO BID 10/23/22 12/08/22 50 mg tablet (Senexon-S) Seralax 12/08/22 lorazepam 1 mg tablet 1 mg PO 3XD PRN 12/08/22 12/08/22 Allergies Allergy/AdvReac Type Severity Reaction Status Date / Time No Known Drug Allergies Allergy Verified 10/30/22 11:33 Review of Systems Status of ROS: Reports: 6 or more systems reviewed and unremarkable except as noted in History and below [facility] Medical History Autism ?F84.0 - Autistic disorder (ICD-10) Bacteremia ?R78.81 - Bacteremia (ICD-10) Bipolar disorder ?F31.9 - Bipolar disorder, unspecified (ICD-10) Gout ?M10.9 - Gout, unspecified (ICD-10) Hepatic steatosis ?K76.0 - Fatty (change of) liver, not elsewhere classified (ICD-10) Obesity ?E66.9 - Obesity, unspecified (ICD-10) Obesity hypoventilation syndrome ?E66.2 - Morbid (severe) obesity with alveolar hypoventilation (ICD-10) Obstructive sleep apnea ?G47.33 - Obstructive sleep apnea (adult) (pediatric) (ICD-10) OCD (obsessive compulsive disorder) ?F42.9 - Obsessive-compulsive disorder, unspecified (ICD-10) Surgical History History of appendectomy ?Z90.49 - Acquired absence of other specified parts of digestive tract (ICD- 10) Family History Father High cholesterol Social History Narrative: He lives with his parents. Limited verbal communication secondary to autism. Mother reports that he does have excessive eating and it is hard to control is oral intake. The lock the refrigerator. Smoking Status: Never smoker Do you use any of these nicotine containing products: None Second hand tobacco smoke exposure: No How often do you have a drink containing alcohol: never How often do you have six or more drinks on one occasion: Never AUDIT-C Alcohol total score: 0 Non-prescribed substance use: denies use Caffeine: Yes (Soda) service: No Exam Narrative: Exam Narrative: Blunted affect. Pleasant helpful with exam. Rocking tapping his chair. In easily. Intermittent small cough. Reportedly nonproductive. Sounds congested in nasopharynx. Oropharynx with edematous uvula mildly erythematous posterior oropharynx. Lungs are clear. He is not tachypneic or labored in his breathing on my exam. Heart with mildly elevated rate in a regular rhythm. Skin is warm and dry without erythema or rash. Does appear just mildly tremulous and wondering if might be related to cough medicines. Const: Vital Signs, click to edit/add: Vital Signs - 24 hr 12/08/22 23:00 12/09/22 00:34 12/09/22 01:30 Temperature 98.5 F Pulse Rate [Right Pulse Oximeter] 114 H 102 H 109 H Respiratory Rate 36 H 18 18 Blood Pressure [Le ft Upper Arm] 156/104 H 140/110 H Pulse Oximetry 94 94 94 Oxygen Delivery Me thod Room Air Room Air Room Air Documenting provider has reviewed patient's vital signs: yes Course Vital Signs Vital signs: Initial Vital Signs Temperature 98.5 F 12/08/22 23:00 Temperature Source Temporal Artery Scan 12/08/22 23:00 Pulse Rate 114 H 12/08/22 23:00 Pulse Rhythm Regular 12/08/22 23:00 Respiratory Rate 36 H 12/08/22 23:00 Blood Pressure 156/104 H 12/08/22 23:00 Blood Pressure Mean 121 H 12/08/22 23:00 Blood Pressure Position Sitting 12/08/22 23:00 Pulse Oximetry 94 12/08/22 23:00 Oxygen Delivery Method Room Air 12/08/22 23:00 Vital Signs Temperature 98.5 F 12/08/22 23:00 Pulse Rate 114 H 12/08/22 23:00 Respiratory Rate 36 H 12/08/22 23:00 Blood Pressure 156/104 H 12/08/22 23:00 Pulse Oximetry 94 12/08/22 23:00 Oxygen Delivery Method Room Air 12/08/22 23:00 Temperature 98.5 F 12/08/22 23:00 Pulse Rate 109 H 12/09/22 01:30 Respiratory Rate 18 12/09/22 01:30 Blood Pressure 140/110 H 12/09/22 01:30 Pulse Oximetry 94 12/09/22 01:30 Oxygen Delivery Method Room Air 12/09/22 01:30 Medical Decision Making MDM Narrative Medical decision making narrative: I understand concerns. Given recent events things reasonable to evaluate with chest x-ray. Will also triple swab. Otherwise appears generally well finally. Chest x-ray reviewed by me without infiltrate. No effusion. Radiology able to review comparison I think this is helpful. Concur. Triple swab negative. Would treat for head cold primarily. See patient discharge plan. Does have history of sleep apnea. I do have some concerns; Mom really wanting some other treatment that might help his cough. Codeine- containing cough syrup is indeed available in our [facility]. Would use with caution. Lab Data Labs: Lab Results 12/08/22 Range/Units 23:45 SARS-CoV-2 (PCR) Negative SARS-CoV-2 (Negative) Influenza Type A (PCR) Negative PCR FLU A (Negative) Influenza Type B (PCR) Negative PCR FLU B (Negative) RSV (PCR) Negative PCR RSV (Negative) Discharge Plan Discharge Clinical Impression: PND (post-nasal drip), Cough Patient Disposition: Home w/ Parent or Adult Condition: Stable Instructions: Upper Respiratory Infection (ED), Postnasal Drip (DC) Additional Instructions: You do not appear to have pneumonia at this time. Would consider sleeping under the mist of a cool mist humidifier. Focus on hydration. Anesthetic throat lozenges like Sucrets or throat sprays like Chloraseptic can sometimes help with the need to cough that you might be feeling in your throat. Sucking on ice chips might be helpful. I would be careful with this Robitussin with codeine from [facility] as it does potentially cause sedation. If you do not have a diagnosis of asthma and there was no wheeze, unclear if nebulized albuterol would help. Sometimes distilled water in the nebulizer can be more helpful for cough. Pseudoephedrine ([id number]) while potentially stimulating can be helpful for drying and decongestion and therefore with cough related to postnasal drip. Prednisone from [facility] can decrease inflammation and help with cough then both in lungs and throat. Prescriptions: No Action risperidone 4 mg tablet 4 mg PO BID Patient Comments: TAKE ONE TABLET BY MOUTH TWICE DAILY gabapentin 600 mg tablet 600 mg PO DAILY Patient Comments: TAKE ONE TABLET BY MOUTH ONE TIME DAILY fluvoxamine 100 mg tablet 150 mg PO BID Patient Comments: take 1.5 tablets by mouth twice daily. 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
[2022-12-09 00:34] VITALS: PULSE 102; RESP 18; O2SAT 94
[2022-12-09 00:42] LABS: PCR FLU A Negative PCR FLU A (Negative); PCR FLU B Negative PCR FLU B (Negative); PCR RSV Negative PCR RSV (Negative)
[2022-12-09 00:48] LABS: SARS PCR* Negative SARS-CoV-2 (Negative)
[2022-12-09 01:30] VITALS: BP 140/110; PULSE 109; RESP 18; O2SAT 94
== END 2022-12-09 01:32 | disposition home or self-care (01) ==
PROVIDERS: Emergency Provider Family Medicine; PCP Family Medicine
DX: R05.9 Cough, unspecified (principal); R09.82 Postnasal drip
CPT/HCPCS: 71046; 87631; 99283; 99284

== ENCOUNTER 2024-09-04 17:40 | Inpatient (IN) | payer OTHER, SELFPAY ==
[2024-09-04] VITALS (11 sets, daily range): BP systolic 143–155; BP diastolic 92–98; PULSE 81–120; RESP 22–24; TEMP 37.2–37.4; O2SAT 85–97; BMI 33.6
--- OUTSIDE RECORDS SUMMARY | 2024-09-04 17:42 | XMS_ITS | Clinical Summary ---
Author Organization [facility] Address [address] [place] [address] Care Team Providers Care Instructional Design Manager Name Role Phone Elsewhere, Pcp Primary Care Provider Unavailabl e Source Comments Patient records contain information from all sites at [facility]. For routine questions regarding patient records, call [phone] during business hours, M-F 8:00 AM - 5:00 PM Central Time. Record requests for emergency care only can be directed to [phone] at any time.[facility] Allergies No known active allergies Medications fluvoxaMINE (LUVOX) 100 mg tablet Take 150 mg by mouth 2 (two) times a day. 01/25/20 15 Active risperiDONE (RisperDAL) 4 mg tablet Take 4 mg by mouth 2 (two) times a day. 12/18/19 14 Active heparin PF flush 10 unit/mL syringe 10 mL (100 Units total) by intra-catheter route as needed for line care. 800 mL 10/23/19 23 Active diclofenac sodium (VOLTAREN) 1 % gel Apply 2 g topically 4 (four) times a day as needed (back pain). Apply to back and abdomen for pain. 50 g 1 10/23/19 23 Active lactulose (CHRONULAC) 20 gram/30 mL solution Take 15 mL (10 g total) by mouth 3 (three) times a day as needed (constipation). 60 mL 10/23/19 23 Active sennosides-docu sate sodium (SENOKOT-S) 8.6-50 mg per tablet Take 2 tablets by mouth 2 (two) times a day. 90 tablet 1 10/23/19 23 Active bisacodyL (DULCOLAX) 10 mg suppository Insert 1 suppository (10 mg total) into the rectum daily as needed for constipation. 90 suppository 10/23/19 23 Active Active Problems Problem Noted Date Diagnosed Date Methicillin Susceptible Staphylococcal Aureus Acute Respiratory Failure With Hypoxia Autism Spectrum Disorder 10/20/2022 Constipation 10/20/2022 Redundant Colon 10/20/2022 Bacteremia 10/18/2022 Social History Tobacco Use Types Packs/Day Years Used Date Smoking Tobacco: Never Smokeless Tobacco: Never Tobacco Cessation:Counseling Given: Not Answered Nutrition Answer Date Recorded Nutrition: EVOO Fat Source Unknown 10/18 Nutrition: Servings of Fruits/Vegetables per Day Not on file 10/18/2022 Dental Answer Date Recorded Dental: Regular Dentist Unknown 10/19/19 23 Sex and Gender Information Value Date Recorded Sex Assigned at Not on file 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 Gender Identity Not on file Sexual Orientation Not on file Last Filed Vital Signs Vital Sign Reading Time Taken Comments Blood Pressure 162/97 12/16/2022 7:30 AM CDT Pulse 82 12/16/2022 7:30 AM CDT Temperature 36.9 C (98.4 F) 12/16/2022 4:30 AM CDT Respiratory Rate 19 12/16/2022 2:14 AM CDT Oxygen Saturation 95% 12/16/2022 7:30 AM CDT Inhaled Oxygen Concentration - - Weight 105 kg (231 lb 4.2 oz) 12/16/2022 2:13 AM CDT Height 180.3 cm (5' 11) 10/20/2022 3:24 PM CDT Body Mass Index 32.25 10/20/2022 3:24 PM CDT Plan of Treatment Health Maintenance Due Date Last Done Comments CT Colonography 1979 Cologuard 1979 Colonoscopy 1979 Colorectal Cancer Screening 1979 FIT 1979 HIV Screening 1979 Hepatitis C Screening 1979 Hepatitis B Vaccines (1 of 3 - 19+ 3-dose series) 1998 Depression Screening (Annual PHQ-2) 08/11/2023 Lipid (Cholesterol) Screening 03/05/2024 03/05/2019, 08/17/2018 COVID-19 Vaccine (1 - 2023- season) 2024 Influenza Vaccine (#1) 2024 DTaP,Tdap,and Td Vaccines (2 - Td or Tdap) 05/06/2025 05/06/2015, 10/21/2003 Fasting Glucose for Diabetes Screening 12/16/2025 12/16/2022, 10/22/2022, 10/21/2022, Additional history exists Glucose Test for Med Monitoring Discontinued 12/16/2022, 10/22/2022, 10/21/2022, Additional history exists HPV Vaccines Aged Out No longer eligi ble based on patient's age to complete this topic IPV Vaccines Aged Out No longer eligi ble based on patient's age to complete this topic Pneumococcal vaccine (0-49 years) Aged Out No longer eligible based on patient's age to complete this topic Procedures Procedure Name Priority Date/Time Associated Diagnosis Comments BASIC METABOLIC PANEL, S/P STAT 12/16/2022 6:17 AM CDT from Last 3 Months or Most Recently Relevant to Health Maintenance Results * (ABNORMAL) Basic Metabolic Panel (12/16/2022 6:17 AM CDT) Potassium, P 3.6 3.6 - 5.2 mmol/L 12/16/2022 6:46 AM CDT [facility] Sodium, P 138 135 - 145 mmol/L 12/16/2022 6:46 AM CDT [facility] Chloride, P 100 98 - 107 mmol/L 12/16/2022 6:46 AM CDT [facility] Bicarbonate, P 27 22 - 29 mmol/L 12/16/2022 6:46 AM CDT [facility] Anion Gap, P 11 7 - 15 12/16/2022 6:46 AM CDT [facility] BUN (Blood Urea Nitrogen), P 13 8 - 24 mg/dL 12/16/2022 6:46 AM CDT [facility] Creatinine 0.67(L) 0.74 - 1.35 mg/dL 12/16/2022 6:46 AM CDT [facility] Estimated GFR (eGFR) >90 >=60 mL/min/BSA 12/16/2022 6:46 AM CDT [facility] Comment: Estimated GFR calculated using the 2021 CKD_EPI creatinine equation. Calcium, Total, P 9.2 8.6 - 10.0 mg/dL 12/16/2022 6:46 AM CDT [facility] Glucose, P 105 70 - 140 mg/dL 12/16/2022 6:46 AM CDT [facility] Blood (Blood, Venous) 12/16/2022 6:17 AM CDT 12/16/2022 6:30 AM CDT Mandeep Gusman M.D. LAB BLOOD ADD-ON Final Resu lt [facility] [address] [place] [address], [facility] [address] [place] [address] from Last 3 Months or Most Recently Relevant to Health Maintenance Insurance MEDICA Advance Directives For more information, please contact: [phone] * Full Code (Latest Code Status on File) Date Activated Date Inactivated Comments 10/18/2022 7:08 PM 10/22/2022 6:04 PM Question Answer Comments Full Code: Not Discussed Due to: Not medically appropriate Care Teams Instructional Design Manager Relationship Specialty Start Date End Date Elsewhere, Pcp PCP - General Internal Medicine 12/16/22
--- OUTSIDE RECORDS SUMMARY | 2024-09-04 17:42 | XMS_ITS | Referral Summary ---
Author Organization [facility] Address [address] [place] [address] Care Team Providers Care Aeronautical Drafter Name Role Phone Elsewhere, Pcp Primary Care Provider Unavailabl e Source Comments Patient records contain information from all sites at [facility]. For routine questions regarding patient records, call [phone] during business hours, M-F 8:00 AM - 5:00 PM Central Time. Record requests for emergency care only can be directed to [phone] at any time.[facility] Allergies No known active allergies Medications [...] as needed for constipation. 90 suppository 10/23/19 Active Active Problems Problem Noted Date Diagnosed [...] Date Recorded Dental: Regular Dentist Unknown 10/19/19 Sex and Gender Information Value Date Recorded Sex Assigned at Not on file Legal Sex Male 10:15 AM QA MANAGER Gender Identity Not on file Sexual Orientation [...] 10/20/2022 3:24 PM CDT Plan of Treatment Not on file Procedures Procedure Name Priority Date/Time Associated Diagnosis [...] [facility] Comment: Estimated GFR calculated using the 2020 CKD_EPI creatinine equation. Calcium, Total, P 9.2 8.6 - 10.0 mg/dL 12/16/2022 6:46 AM CDT [facility] Glucose, P 105 70 - 140 mg/dL 12/16/2022 6:46 AM CDT [facility] Blood (Blood, Venous) 12/16/2022 6:17 AM CDT 12/16/2022 6:30 AM CDT Mandeep Gusman M.D. LAB BLOOD ADD-ON Final Resu lt [facility] [address] [place] [address], [facility] [address] [place] [address] from Last 3 Months or Most Recently Relevant to Health Maintenance Insurance MEDICA Advance Directives For more information, please contact: [phone] * Full Code (Latest Code Status on File) Date Activated Date Inactivated Comments 10/18/2022 7:08 PM 10/22/2022 6:04 PM Question Answer Comments Full Code: Not Discussed Due to: Not medically appropriate Care Teams Aeronautical Drafter Relationship Specialty Start Date End Date Elsewhere, Pcp PCP - General Internal Medicine 12/16/22
--- OUTSIDE RECORDS SUMMARY | 2024-09-04 17:42 | XMS_ITS | Clinical Summary ---
Author Organization [facility] Address [place], [place] [address] Care Team Providers Care Medical Affairs Director Name Role Phone Jass La MD Primary Care Provider [phone]- [phone] Allergies No known active allergies Medications risperiDONE (RISPERDAL) 4 mg tabletIndications :Autistic disorder, current or active state,Bipolar I disorder, most recent episode (or current) unspecified Take 4 mg by mouth two times daily. Take with 1 mg tablet for a total of 5 mg BID 0 4 Active fluvoxaMINE (LUVOX) 100 mg tablet 5 Active LORazepam (ATIVAN) 1 mg tablet Take 1 mg by mouth at bedtime if needed. Active propranoloL (INDERAL) 10 mg tablet Take 10 mg by mouth two times daily. Active divalproex (DEPAKOTE ER) 500 mg Extended-Release tabletIndications :Bipolar I disorder (HC) Take 2,000 mg by mouth at bedtime. 0 3 Active risperiDONE (RISPERDAL) 1 mg tablet Take 1 mg by mouth two times daily. Take with 4 mg tablet for a total of 5 mg BID Active azithromycin (Zithromax Z-Pete) 250 mg tabletIndications :Acute cough Two tablets the first day, one daily days 2-5 6 Tablet 5 09/08/19 25 Active benzonatate (TESSALON) 100 mg capsuleIndication s:Acute cough Take 1 Capsule (100 mg) by mouth 3 times daily if needed for Cough. 21 Capsule 2 5 Active sennosides (SENNA) 8.6 mg tabletIndications :Constipation, acute Take 1 Tablet (8.6 mg) by mouth two times daily. 180 Tablet 3 08/25/19 25 Discontinu ed(*Patien t states no longer taking) losartan (COZAAR) 50 mg tabletIndications :Essential hypertension Take 1 Tablet (50 mg) by mouth once daily. 90 Tablet 1 08/25/19 25 Discontinu ed(*Med complete/R egimen complete/L evel of care change) Active Problems Problem Noted Date Diagnosed Date Obesity (BMI 30-39.9) 02/08/2019 Gout, unspecified 07/28/2009 Overview (07/28/2009): Clinical diagnosis and elevated serum uric acid level 05/2008 Jass La MD signed electronically .................... 07/28/2009 Autistic disorder, current or active state 11/12 Obsessive-compulsive disorders 11/13/2007 Bipolar I disorder, most rec ent episode (or current) unspecified 11/13/2007 Resolved Problems Problem Noted Date Diagnosed Date Resolved Date Aphasia 11/13/2007 11/13/2007 Encounters Date Type Department Care Team Description 09/04/2024 Nurse Triage [facility] [address] [place] [address] Jass La MD oxygen concerns 09/03/2024 12:40 PM MICROBIOLOGY SUPERVISOR Office Visit [facility] [address] [place] [address] Jass La MD Follow Up (Go over test results from 08/25); Cough (3 days and seems to have laryngitis as well per parents) 09/03/2024 Travel 08/31/2024 Telephone [facility] [address] [place] [address] Jass La MD Abnormal Lab Results 08/30/2024 Telephone [facility] [address] [place] [address] Jass La MD Results 08/25/2024 1:10 PM MICROBIOLOGY SUPERVISOR Office Visit [facility] [address] [place] [address] Jass La MD Blood Pressure (Higher blood pressure over the past 6 weeks) 08/25/2024 Travel from Last 3 Months Immunizations Name Administration Dates Next Due Td (Age >=7 Years) 10/21/2003 Tdap 05/06/2015 Tuberculin (PPD) 05/06/2015 Family History Medical History Relation Name Comments Hyperlipidemia Father Other Father Gout Relation Name Status Comments Father Social History Tobacco Use Types Packs/Day Years Used Date Smoking Tobacco: Never Passive Smoke Exposure: Never Smokeless Tobacco: Never Tobacco Cessation:Counseling Given: Not Answered Alcohol Use Standard Drinks/Week Comments No 0 (1 standard drink = 0.6 oz pur e alcohol) PHQ-2 Answer Date Recorded PHQ-2 Score 0 02/08/2019 Social Connections Answer Date Recorded Do you often feel lonely or isolated from those around you? 0 08/25/2024 Financial Resource Strain Answer Date R ecorded Difficulty of Paying Living Expenses 3 08/25/2024 Difficulty of Paying Living Expenses Not on file 08/25/2024 Food Insecurity Answer Date Recorded Do you worry your food will run out before you are able to buy more? 1 08/25/2024 Transportation Needs Answer Date Record ed Does lack of transportation keep you from medica l appointments? 1 08/25/2024 Does lack of transportation keep you from work, meetings or getting things that you need? 1 08/25/2024 Housing Stability Answer Date Recorded What is your housing situation today? 1 08/25/2024 Utilities Answer Date Recorded Do you have trouble paying f or utilities (for example, heat, electricity, water, phone)? 1 08/25/2024 Sex and Gender Information Value Date Recorded Sex Assigned at Not on file Legal Sex Male 5:19 AM MICROBIOLOGY SUPERVISOR Gender Identity Not on file Sexual Orientation Not on file Occupation Industry Job Start Date Job End Date [employer] Not on file Not on f ile Not on file Obstetrics History Last Filed Vital Signs Vital Sign Reading Time Taken Comments Blood Pressure 124/87 09/03/2024 12:51 PM MICROBIOLOGY SUPERVISOR Pulse 97 09/03/2024 12:51 PM MICROBIOLOGY SUPERVISOR Temperature 37.1 C (98.7 F) 09/03/2024 12:51 PM MICROBIOLOGY SUPERVISOR Respiratory Rate 21 12/20/2022 3:30 PM CDT Oxygen Saturation 92% 09/03/2024 12: 51 PM MICROBIOLOGY SUPERVISOR Inhaled Oxygen Concentration - - Weight 112.4 kg (247 lb 12.8 oz) 08/25/2024 1:22 PM MICROBIOLOGY SUPERVISOR Height 181.6 cm (5' 11.5) 12/12/2022 1 0:07 AM CDT Body Mass Index 34.08 12/12/2022 10:07 AM CDT Plan of Treatment Upcoming Encounters Date Type Department Care Team (Late st Contact Info) Description 09/13/2024 1:00 PM MICROBIOLOGY SUPERVISOR Phone Office Visit [facility] [address] [place] [address] Nargis Monte, RD [address] [place] [address] Health Maintenance Due Date Last Done Comments HIV for age 15-65 1994 Hepatitis C screening for ag e 18-79 1997 Pneumococcal series for age 6-49 (1 of 2 - PCV) 1998 Depression screening for age 12+ 02/09/2020 02/08/2019, 09/24/2017, 09/26/2016, Additional history exists BMI (ht and wt on same day) for age 18+ 12/13/2023 12/12/2022, 06/23/2019, 02/08/2019, Additional history exists Colonoscopy through age 75 02/22/2024 COVID-19 vaccine series ( - 2023- season) 2024 Influenza for age 9-49 04/11/2024 Tetanus booster 05/06/2025 05/06/2015, 10/21/2003 Lipids for age 45-75 09/03/2029 09/03/2024, 08/25/2024, 03/05/2019, Additional history exists Tdap Completed 05/06/2015 Goals Goal Patient Goal Type Associated Problems Recent Progress Patient-Stated? Author [place] CC - engage in care coordination General Yes Olya Hernandez, RN Note: Goal Statement: Chavo will be offered a health risk assessment when contact made. Date goal created: 08/29/2020 Goal end date: 08/28/2021 Goal priority: High Challenges to goal achievement: Member declines annual assessment. CC steps to support member toward goal achievement: Mail Self-Report Health Risk Assessment to [employer] member Contact JOSE HOLLIS to determine if waiver annual or bi annual is scheduled Contact mother/guardian in 6 weeks to request HRA PLAN: Continue outreach to contact and engage member per health plan requirement. Olya Hernandez RN .................... 09/05/2020 10:12 AM Notes on quarterly progress towards goal: Quarterly Contact Date Chavo childs goal progress and outcomes Second Quarter 12/19/2020 stated would complete HRA in the fall Third Quarter Fourth End of Year Summary: AXIS CC: ICT General Yes Kellen Levin, ARMAMENT REPAIRER AXIS CC: COVID 19 General Yes Kellen Levin LSW Note: Date goal created: 12/19/2020 Goal end date: 12/18/2021 Person centered goal statement: Joey health and wellbeing will be supported during COVID 19 pandemic as evidenced by confirming availability of health care provider/primary care clinic phone number Here are the ways Joey routine and ability to function is impacted by the COVID 19 pandemic: Social isolation contributes to exacerbations of mental health symptoms Actions to support me in reaching this goal: phone calls with providers How important is this goal to me today?: Medium How confident am I in my ability to accomplish this goal with the support of my care team? Confident Goal Priority: High MEG Coleman .................... 12/19/2020 10:41 AM Notes on progress towards goal: Quarterly Contact Date Notes on progress towards goal Second Quarter 12/19/2020 declined vaccination Third Quarter Fourth Outcome Summary Procedures Procedure Name Priority Date/Time Associated Diagnosis Comments LIPID PANEL W REFLEX MEASURED LDL Routine 09/03/2024 1:37 PM MICROBIOLOGY SUPERVISOR Type 2 diabetes mellitus without complication, without long-term current use of insulin (HC) GLUCOSE, FASTING Routine 09/03/2024 1:37 PM MICROBIOLOGY SUPERVISOR Type 2 diabetes mellitus without complication, without long-term current use of insulin (HC) BASIC METABOLIC PANEL Routine 08/25/2024 2:15 PM MICROBIOLOGY SUPERVISOR Elevated BP without diagnosis of hypertension LIPID PANEL W REFLEX MEASURED LDL Routine 08/25/2024 2:15 PM MICROBIOLOGY SUPERVISOR Lipid screening TSH WITH REFLEX Routine 08/25/2024 2:15 PM MICROBIOLOGY SUPERVISOR Other fatigue HEMOGLOBIN A1C Routine 08/25/2024 2:15 PM MICROBIOLOGY SUPERVISOR Hyperglycemia from Last 3 Months Results * (ABNORMAL) LIPID PANEL W REFLEX MEASURED LDL (09/03/2024 1:37 PM MICROBIOLOGY SUPERVISOR) Only the most recent of2 resultswithin the time period is included. CHOLESTEROL, TOTAL 172 <200 mg/dL [facility] HDL CHOLESTEROL 40 > OR = 40 mg/dL [facility] TRIGLYCERIDES 149 <150 mg/dL [facility] LDL-CHOLESTEROL 106(H) mg/dL (calc) [facility] Comment: Reference range: <100 Desirable range <100 mg/dL for primary prevention; <70 mg/dL for patients with CHD or diabetic patients with > or = 2 CHD risk factors. LDL-C is now calculated using the Raciel-Dillard calculation, which is a validated novel method providing better accuracy than the Friedewald equation in the estimation of LDL-C. Raciel SS et al. ROBERT. 2013;310(19): 6652-9983 (http://education.[employer]/faq/DOE560) CHOL/HDLC RATIO 4.3 <5.0 (calc) [facility] NON HDL CHOLESTEROL 132(H) <130 mg/dL (calc) [facility] Comment: For patients with diabetes plus 1 major ASCVD risk factor, treating to a non-HDL-C goal of <100 mg/dL (LDL-C of <70 mg/dL) is considered a therapeutic option. Blood BLOOD SPECIMEN / Unknown 09/03/2024 1:37 PM MICROBIOLOGY SUPERVISOR 09/03/2024 1:38 PM MICROBIOLOGY SUPERVISOR us Jass La MD CHEMISTRY Final Resu lt [facility] [address] [place] [address], [facility] [address] [place] [address] * (ABNORMAL) GLUCOSE, FASTING (09/03/2024 1:37 PM MICROBIOLOGY SUPERVISOR) GLUCOSE 106(H) 65 - 99 mg/dL [facility] Comment: Fasting reference interval For someone without known diabetes, a glucose value between 100 and 125 mg/dL is consistent with prediabetes and should be confirmed with a follow-up test. Blood BLOOD SPECIMEN / Unknown 09/03/2024 1:37 PM MICROBIOLOGY SUPERVISOR 09/03/2024 1:38 PM MICROBIOLOGY SUPERVISOR us Jass La MD CHEMISTRY Final Resu lt [facility] [address] [address], [facility] [address] [place] [address] * (ABNORMAL) HEMOGLOBIN A1C (08/25/2024 2:15 PM MICROBIOLOGY SUPERVISOR) [facility] HEMOGLOBIN A1C 7.3(H) <5.7 % of total Hgb [facility] Comment: For someone without known diabetes, a hemoglobin A1c value of 6.5% or greater indicates that they may have diabetes and this should be confirmed with a follow-up test. For someone with known diabetes, a value <7% indicates that their diabetes is well controlled and a value greater than or equal to 7% indicates suboptimal control. A1c targets should be individualized based on duration of diabetes, age, comorbid conditions, and other considerations. Currently, no consensus exists regarding use of hemoglobin A1c for diagnosis of diabetes for children. Blood BLOOD SPECIMEN / Unknown 08/25/2024 2:15 PM MICROBIOLOGY SUPERVISOR 08/25/2024 2:16 PM MICROBIOLOGY SUPERVISOR us Jass La MD CHEMISTRY Final Resu lt Performing Organization Address City/[facility]/ZIP Co de Phone Number [facility] [place] [id number] [place] [address], [facility] [address] [place] [address] * TSH WITH REFLEX (08/25/2024 2:15 PM MICROBIOLOGY SUPERVISOR) Pathologist [facility] TSH W/REFLEX TO FT4 3.08 0.40 - 4.50 mIU/L [facility] Blood BLOOD SPECIMEN / Unknown 08/25/2024 2:15 PM MICROBIOLOGY SUPERVISOR 08/25/2024 2:16 PM MICROBIOLOGY SUPERVISOR Jass La MD CHEMISTRY Final Resu lt Performing Organization Address [facility]/ZIP Co de Phone Number [facility] [address] [address], [facility] [address] [place] [address] * (ABNORMAL) BASIC METABOLIC PANEL (08/25/2024 2:15 PM MICROBIOLOGY SUPERVISOR) Pathologist [facility] GLUCOSE 148(H) 65 - 99 mg/dL [facility] Comment: Fasting reference interval For someone without known diabetes, a glucose value >125 mg/dL indicates that they may have diabetes and this should be confirmed with a follow-up test. UREA NITROGEN (BUN) 9 7 - 25 mg/dL [facility] CREATININE 0.68 0.60 - 1.29 mg/dL [facility] EGFR 117 > OR = 60 mL/min/1. 73m2 [facility] BUN/CREATININE RATIO SEE NOTE: 6 - 22 (calc) [facility] Comment: Not Reported: BUN and Creatinine are within reference range. SODIUM 131(L) 135 - 146 mmol/L [facility] POTASSIUM 4.7 3.5 - 5.3 mmol/L [facility] CHLORIDE 91(L) 98 - 110 mmol/L [facility] CARBON DIOXIDE 32 20 - 32 mmol/L [facility] ELECTROLYTE BALANCE 8 7 - 17 mmol/L (calc) [facility] CALCIUM 9.8 8.6 - 10.3 mg/dL [facility] Blood BLOOD SPECIMEN / Unknown 08/25/2024 2:15 PM MICROBIOLOGY SUPERVISOR 08/25/2024 2:16 PM MICROBIOLOGY SUPERVISOR us Jass La MD CHEMISTRY Final Resu lt [facility] [address] [place] [address], [facility] [address] [place] [address] from Last 3 Months Insurance [employer] [facility] Care Teams Medical Affairs Director Relationship Specialty Start Date End Date Jass La MD [address] [place] [address] PCP - General 01/31/06
--- OUTSIDE RECORDS SUMMARY | 2024-09-04 17:42 | XMS_ITS | Referral Summary ---
Author Organization [facility] Address [address] [place] [address] Care Team Providers Care Placement Manager Name Role Phone Jass La MD Primary Care Provider +1- [phone] Allergies No known active allergies Medications divalproex sodium extended-releas e (DEPAKOTE ER) 500 MG 24 hr tablet Take 1,000 mg by mouth every morning Active gabapentin (NEURONTIN) 600 MG tablet Take 600 mg by mouth every morning Active fluvoxaMINE (LUVOX) 100 MG tablet Take 100 mg by mouth 2 times daily Active risperiDONE (RISPERDAL) 4 MG tablet Take 4 mg by mouth 2 times daily Active LORazepam (ATIVAN) 1 MG tablet Take 1 mg by mouth nightly as needed for anxiety Active guaiFENesin-cod eine (ROBITUSSIN AC) 100-10 MG/5ML solutionIndicat ions:Bronchitis Take 5 mLs by mouth every 4 hours as needed for cough 118 mL 10/11/2021 Active Active Problems Problem Noted Date Diagnosed Date Autism 10/04/2021 Bronchitis 10/04/2021 Acute respiratory failure with hypoxia Acute conjunctivitis of both eyes, unspecified acute conjunctivitis type 10/04/2021 Social History Tobacco Use Types Packs/Day Years Used Date Smoking Tobacco: Never Assessed Adolescent Education Answer Date Record ed Getting School Help Needed Not on file 05/11 Sex and Gender Information Value Date Recorded Sex Assigned at Not on file Legal Sex Male 3:24 AM PYROTECHNIC MIXER Gender Identity Not on file Sexual Orientation Not on file Last Filed Vital Signs Vital Sign Reading Time Taken Comments Blood Pressure 133/86 10/11/2021 8:08 AM PYROTECHNIC MIXER Pulse 82 10/11/2021 8:08 AM PYROTECHNIC MIXER Temperature 36.9 C (98.5 F) 10/11/2021 8:08 AM PYROTECHNIC MIXER Respiratory Rate 20 10/11/2021 8:08 AM PYROTECHNIC MIXER Oxygen Saturation 92% 10/11/2021 9:3 5 AM PYROTECHNIC MIXER with activity Inhaled Oxygen Concentration - - Weight 103.6 kg (228 lb 4.8 oz) 10/04/2021 6:00 PM PYROTECHNIC MIXER Height 180.3 cm (5' 11) 10/04/2021 11: 50 AM PYROTECHNIC MIXER Body Mass Index 31.84 10/04/2021 11:50 AM PYROTECHNIC MIXER Plan of Treatment Not on file Procedures Procedure Name Priority Date/Time Associated Diagnosis Comments BASIC METABOLIC PANEL Routine 10/05/2021 7:03 AM PYROTECHNIC MIXER from Last 3 Months or Most Recently Relevant to Health Maintenance Results * (ABNORMAL) Basic metabolic panel (10/05/2021 7:03 AM PYROTECHNIC MIXER) Sodium 133 133 - 144 mmol/L 10/05/2021 7:43 AM [facility] Potassium 3.8 3.4 - 5.3 mmol/L 10/05/2021 7:43 AM [facility] Chloride 101 94 - 109 mmol/L 10/05/2021 7:43 AM [facility] Carbon Dioxide (CO2) 27 20 - 32 mmol/L 10/05/2021 7:43 AM [facility] Anion Gap 5 3 - 14 mmol/L 10/05/2021 7:43 AM [facility] Urea Nitrogen 14 7 - 30 mg/dL 10/05/2021 7:43 AM [facility] Creatinine 0.64(L) 0.66 - 1.25 mg/dL 10/05/2021 7:43 AM [facility] Calcium 10.0 8.5 - 10.1 mg/dL 10/05/2021 7:43 AM [facility] Glucose 143(H) 70 - 99 mg/dL 10/05/2021 7:43 AM [facility] GFR Estimate >90 >60 mL/min/1.7 3m2 10/05/2021 7:43 AM [facility] Comment:Effective July 122020 eGFRcr in adults is calculated using the 2020 CKD-EPI creatinine equation which includes age and gender (Saray et al., NEJM, DOI: 10.1056/GRZAzw8483133) Blood STRUCTURE OF RIGHT HAND / Unknown Venipuncture / Unknown 10/05/2021 7:03 AM PYROTECHNIC MIXER 10/05/2021 7:13 AM PYROTECHNIC MIXER Boubacar Springer MD LAB - BLOOD ORDERABLES Final Result [facility] [address] Lab (1st floor, no room number) [place] [address], [facility] [phone] from Last 3 Months or Most Recently Relevant to Health Maintenance Insurance [employer] Advance Directives For more information, please contact: [phone] Documents on File Type Date Recorded Patient Stem Mounter Expl anation Advance Directives and Living Will 10/04/2021 [place] ([place] ([place] Keven Legal Guardianship 01-16-2007 * Full Code (Latest Code Status on File) Date Activated Date Inactivated Comments 10/04/2021 5:54 PM 10/11/2021 1:46 PM All basic and advanced life-sustaining interventions are performed as appropriate Question Answer Comments Code status determined by: Discussion with leonarda nt/ legal decision maker Care Teams Placement Manager Relationship Specialty Start Date End Date Jass La MD [address] [place] [id number] PCP - General Family Medicine 10/04/21
--- OUTSIDE RECORDS SUMMARY | 2024-09-04 17:42 | XMS_ITS ---
Author Organization [facility] Address [address] [place] [address] Care Team Providers Care Chef De Cuisine Name Role Phone Unavailable Unavailable Unavailable Surgery Details Not on file Complications Check Surgery Details section. Procedure Estimated Blood Loss Check Surgery Details section. Procedure Findings Check Surgery Details section. Procedure Specimens Taken Check Surgery Details section.
--- OUTSIDE RECORDS SUMMARY | 2024-09-04 17:42 | XMS_ITS | Clinical Summary ---
Author Organization [facility] Address [address] [place] [address] Care Team Providers Care Assistant Account Executive Name Role Phone Jass La MD Primary Care Provider +1- [phone] Allergies No known active allergies Medications divalproex [...] on file Legal Sex Male 3:24 AM SURVEY QUESTIONNAIRE DESIGNER Gender Identity Not on file Sexual Orientation Not on file Last Filed Vital Signs Vital Sign Reading Time Taken Comments Blood Pressure 133/86 10/11/2021 8:08 AM SURVEY QUESTIONNAIRE DESIGNER Pulse 82 10/11/2021 8:08 AM SURVEY QUESTIONNAIRE DESIGNER Temperature 36.9 C (98.5 F) 10/11/2021 8:08 AM SURVEY QUESTIONNAIRE DESIGNER Respiratory Rate 20 10/11/2021 8:08 AM SURVEY QUESTIONNAIRE DESIGNER Oxygen Saturation 92% 10/11/2021 9:3 5 AM SURVEY QUESTIONNAIRE DESIGNER with activity Inhaled Oxygen Concentration - - Weight 103.6 kg (228 lb 4.8 oz) 10/04/2021 6:00 PM SURVEY QUESTIONNAIRE DESIGNER Height 180.3 cm (5' 11) 10/04/2021 11: 50 AM SURVEY QUESTIONNAIRE DESIGNER Body Mass Index 31.84 10/04/2021 11:50 AM SURVEY QUESTIONNAIRE DESIGNER Plan of Treatment Health Maintenance Due Date Last Done Comments ANNUAL REVIEW OF HM ORDERS 1979 CT COLONOGRAPHY 1979 FIT 1979 FLEX SIG 1979 sDNA (Cologuard) 1979 COLONOSCOPY 1989 COLORECTAL CANCER SCREENING 1989 HIV SCREENING 1994 HEPATITIS C SCREENING 1997 MEDICARE ANNUAL WELLNESS VISIT 1997 HEPATITIS B IMMUNIZATION (1 of 3 - 19+ 3-dose series) 1998 LIPID 2019 COVID-19 Vaccine ( - 2023-2 5 season) 2024 INFLUENZA VACCINE (#1) 2024 PHQ-2 (once per calendar year) 2024 GLUCOSE 10/05/2024 10/05/2021, 10/04/2021 DTAP/TDAP/TD IMMUNIZATION (3 - Td or Tdap) 05/06/2025 05/06/2015, 10/21/2003 ADVANCE CARE PLANNING 10/04/2026 10/04/2021 ZOSTER IMMUNIZATION (1 of 2) 2029 RSV VACCINE (1 - 1-dose 75+ series) 2054 HPV IMMUNIZATION Aged Out No longer e ligible based on patient's age to complete this topic MENINGITIS IMMUNIZATION Aged Out No l onger eligible based on patient's age to complete this topic Pneumococcal Vaccine: Pediatrics (0 to 5 Years) and At-Risk Patients (6 to 49 Years) Aged Out No longer eligible b ased on patient's age to complete this topic RSV MONOCLONAL ANTIBODY Aged Out No l onger eligible based on patient's age to complete this topic Procedures Procedure Name Priority Date/Time Associated Diagnosis Comments BASIC METABOLIC PANEL Routine 10/05/2021 7:03 AM SURVEY QUESTIONNAIRE DESIGNER from Last 3 Months or Most Recently Relevant to Health Maintenance Results * (ABNORMAL) Basic metabolic panel (10/05/2021 7:03 AM SURVEY QUESTIONNAIRE DESIGNER) Sodium 133 133 - 144 mmol/L 10/05/2021 7:43 AM [facility] Potassium 3.8 3.4 - 5.3 mmol/L 10/05/2021 7:43 AM [facility] Chloride 101 94 - 109 mmol/L 10/05/2021 7:43 AM [facility] Carbon Dioxide (CO2) 27 20 - 32 mmol/L 10/05/2021 7:43 AM [facility] Anion Gap 5 3 - 14 mmol/L 10/05/2021 7:43 AM [facility] Urea Nitrogen 14 7 - 30 mg/dL 10/05/2021 7:43 AM [facility] Creatinine 0.64(L) 0.66 - 1.25 mg/dL 10/05/2021 7:43 AM [facility] Calcium 10.0 8.5 - 10.1 mg/dL 10/05/2021 7:43 AM [facility] Glucose 143(H) 70 - 99 mg/dL 10/05/2021 7:43 AM [facility] GFR Estimate >90 >60 mL/min/1.7 3m2 10/05/2021 7:43 AM [facility] Comment:Effective July 122020 eGFRcr in adults is calculated using the 2020 CKD-EPI creatinine equation which includes age and gender (Saray et al., NEJM, DOI: 10.1056/PMKJvs6099160) Blood STRUCTURE OF RIGHT HAND / Unknown Venipuncture / Unknown 10/05/2021 7:03 AM SURVEY QUESTIONNAIRE DESIGNER 10/05/2021 7:13 AM [facility] Boubacar Springer MD LAB - BLOOD ORDERABLES Final Result LABORATORY [facility] Acute [facility] Lab [address] Lab (1st floor, no room number) [place] [address], [facility] [phone] from Last 3 Months or Most Recently Relevant to Health Maintenance Insurance MEDICA ACCESSABILITY ENHANCED Advance Directives For more information, please contact: [phone] Documents on File Type Date Recorded Patient Direct Support Professional Home Health Expl anation Advance Directives and Living Will 10/04/2021 Dagoberto ([place]un ([place] Keven Legal Guardianship 01-16-2007 * Full Code (Latest Code Status on File) Date Activated Date Inactivated Comments 10/04/2021 5:54 PM 10/11/2021 1:46 PM All basic and advanced life-sustaining interventions are performed as appropriate Question Answer Comments Code status determined by: Discussion with patie nt/ legal decision maker Care Teams Assistant Account Executive Relationship Specialty Start Date End Date Jass La [place] [address] PCP - General Family Medicine 10/04/21
--- NOTE | 2024-09-04 18:10 | CRLHL7_ITS ---
For Patients: As a result of the Century Cures Act, medical imaging exams and procedure reports are released immediately into your electronic medical record. You may view this report before your referring provider. If you have questions, please contact your health care provider. INDICATION: Dyspnea tachycardia TECHNIQUE: CT chest with 95 mL Isovue 370 contrast. COMPARISON: None. FINDINGS: Lungs and pleura: Small effusions bilaterally. Heart and vasculature: Heart size is normal. Thoracic aorta and pulmonary artery are normal in caliber. Significant respiratory motion limits evaluation of distal pulmonary emboli. No central or proximal pulmonary emboli seen Lymph nodes/mediastinum: No mediastinal, hilar, or axillary adenopathy. Chest wall: No masses. Upper abdomen: Fatty appearance of the liver Bones: Unremarkable for age. IMPRESSION: 1. Significant respiratory motion limits evaluation for distal pulmonary emboli. No central or proximal pulmonary emboli seen. Small effusions bilaterally. Please note that all CT scans at this facility use dose modulation, iterative reconstruction, and/or weight-based dosing when appropriate to reduce radiation dose to as low as reasonably achievable. Dictated by Tyra Guerrier MD @ 09/04/2024 7:42:38 PM (Electronically Signed)
--- NOTE | 2024-09-04 18:25 | ED.GENADULT ---
HPI - General Adult General Time Seen by Provider: 18:25 Date Seen: 09/04/24 Chief complaint: Cough Stated complaint: low oxygen, low sodium, nausea Time Seen by Provider: 09/04/24 18:11 Source: patient, family, RN notes reviewed and old records reviewed Mode of arrival: ambulatory Limitations: no limitations History of Present Illness HPI narrative: 44-year-old male with history of autism who presents today with concern for cough and vomiting. Cough is been going on a couple of days, was seen in primary care for unrelated issue yesterday and started on azithromycin as well as Tessalon Perles. Also noted to have some laryngitis at that time. Patient developed vomiting overnight, no diarrhea. Mom notes that abdomen is distended but patient does not complain of abdominal pain. No diarrhea, no urinary symptoms, no known fevers at home. Mother is also concerned about low-sodium as sodium was 131 when checked 2 weeks ago. Related Data Home Medications ?Medication ?Instructions ?Recorded ?Confirmed divalproex 500 mg tablet,extended 1,000 mg PO DAILY 10/14/22 09/06/23 release 24 hr fluvoxamine 100 mg tablet 150 mg PO BID 10/14/22 09/06/23 gabapentin 600 mg tablet 600 mg PO DAILY 10/14/22 09/06/23 risperidone 4 mg tablet 4 mg PO BID 10/14/22 09/06/23 diclofenac sodium 1 % topical gel 2 g topical QID PRN low back pain 10/23/22 12/08/22 naproxen 500 mg tablet 500 mg PO BID PRN 10/23/22 09/06/23 lorazepam 1 mg tablet 1 mg PO 3XD PRN 12/08/22 09/06/23 Allergies Allergy/AdvReac Type Severity Reaction Status Date / Time No Known Drug Allergies Allergy Verified 09/04/24 19:05 [facility] Medical History Autism ?F84.0 - Autistic disorder (ICD-10) Bacteremia ?R78.81 - Bacteremia (ICD-10) Bipolar disorder ?F31.9 - Bipolar disorder, unspecified (ICD-10) Gout ?M10.9 - Gout, unspecified (ICD-10) Hepatic steatosis ?K76.0 - Fatty (change of) liver, not elsewhere classified (ICD-10) Obesity ?E66.9 - Obesity, unspecified (ICD-10) Obesity hypoventilation syndrome ?E66.2 - Morbid (severe) obesity with alveolar hypoventilation (ICD-10) Obstructive sleep apnea ?G47.33 - Obstructive sleep apnea (adult) (pediatric) (ICD-10) OCD (obsessive compulsive disorder) ?F42.9 - Obsessive-compulsive disorder, unspecified (ICD-10) Surgical History History of appendectomy ?Z90.49 - Acquired absence of other specified parts of digestive tract (ICD-10) Family History Father High cholesterol Social History Narrative: He lives with his parents. Limited verbal communication secondary to autism. Mother reports that he does have excessive eating and it is hard to control is oral intake. The lock the refrigerator. Smoking Status: Never smoker Do you use any of these nicotine containing products: None Second hand tobacco smoke exposure: No How often do you have a drink containing alcohol: never How often do you have six or more drinks on one occasion: Never AUDIT-C Alcohol total score: 0 Non-prescribed substance use: denies use Caffeine: Yes (Soda) service: No Exam Narrative: Exam Narrative: General: Well-developed and well-nourished, no acute distress Head: Atraumatic and normocephalic Eyes: Pupils are equal reactive, extraocular motions intact, conjunctiva clear ENT: External nose and ears are normal, posterior pharynx without erythema or exudate Neck: No midline cervical tenderness, full spontaneous range of motion the neck, trachea midline, no adenopathy Heart: Tachycardic but regular Lungs: Diminished breath sounds bilaterally particularly on the right Abdomen: Soft, nontender, distended with active bowel sounds Musculoskeletal: No tenderness, deformity, trace bilateral hand edema Neurologic: Awake, alert, no gross focal neurologic deficits, cranial nerves intact as tested Psych: Mood and affect are appropriate Skin: No rashes Const: Vital Signs, click to edit/add: Vital Signs - 24 hr 09/04/24 17:50 Temperature 99.4 F Pulse Rate [Pulse Oximeter] 120 H Respiratory Rate 24 Blood Pressure [Ri ght Upper Arm] 143/92 H Pulse Oximetry 89 Oxygen Delivery Me thod Room Air Course Course ED Course: Reviewed prior record from 2022 when patient was seen hypoxia, admitted and eventually transferred to [facility] for MSSA bacteremia, empyema and prevertebral phlegmon, also thought to have untreated sleep apnea at that time. Reviewed labs from August 25 when sodium was 131. Patient presents today with a couple of days a cough, also vomiting overnight and today and persistent nausea. Abdominal distension with no pain and no tenderness. On exam here, patient is tachycardic with oxygen saturation 89%, patient will be placed on oxygen. Patient in no distress, diminished breath sounds and tachycardia, no abdominal tenderness or lower extremity swelling. Concern for possible infectious etiology including respiratory viral illness, pneumonia, also concern for possible heart failure or pleural effusion given prior history. Consider pulmonary embolism considering tachycardia and hypoxia. Labs ordered along with CT scan of the chest, CT scan of the abdomen pelvis will be performed as well due to abdominal distension although no tenderness, this could represent some fluid buildup. Reevaluation(s) Time of Reevaluation #1: 19:59 Reevaluation #1: CT scan of the chest independently interpreted by me with borderline cardiomegaly, no acute infiltrate, small bilateral pleural effusion, no pericardial effusion, no definite pulmonary embolism. CT scan of the abdomen and pelvis with stool in the colon, no obstruction, mild hepatomegaly. Labs independently interpreted by me with mild anemia but otherwise normal CBC, sodium 129 chloride of 90, glucose 128, mildly elevated AST of 57 and ALT 66. Time of Reevaluation #2: 20:27 Reevaluation #2: Patient's mother refuses COVID/influenza swab. Patient recheck, heart rate is improved, oxygen saturations still around 91-92% on room air. No definite etiology for patient's symptoms today is found, he does have moderate large volume of stool which may be causing little bit of respiratory compromise. Mild hyponatremia, IV fluids given in the emergency department. Time of Reevaluation #3: 21:09 Reevaluation #3: Care discussed with Dr. Waters, hospitalist for admission Additional Reevaluation(s): 21:24- Labs independently interpreted by me with positive influenza A which likely source of patient's symptoms today. Updated patient and family with findings and plan. Patient remains comfortable, requiring oxygen to maintain saturation over 90% Vital Signs Vital signs: Initial Vital Signs Temperature 99.4 F 09/04/24 17:50 Temperature Source Temporal Artery Scan 09/04/24 17:50 Pulse Rate 120 H 09/04/24 17:50 Respiratory Rate 24 09/04/24 17:50 Blood Pressure 143/92 H 09/04/24 17:50 Blood Pressure Mean 109 H 09/04/24 17:50 Blood Pressure Position Sitting 09/04/24 17:50 Pulse Oximetry 89 09/04/24 17:50 Oxygen Delivery Method Room Air 09/04/24 17:50 Vital Signs Temperature 99.4 F 09/04/24 17:50 Pulse Rate 120 H 09/04/24 17:50 Respiratory Rate 24 09/04/24 17:50 Blood Pressure 143/92 H 09/04/24 17:50 Pulse Oximetry 89 09/04/24 17:50 Oxygen Delivery Method Room Air 09/04/24 17:50 Temperature 99.4 F 09/04/24 17:50 Pulse Rate 120 H 09/04/24 17:50 Respiratory Rate 24 09/04/24 17:50 Blood Pressure 143/92 H 09/04/24 17:50 Pulse Oximetry 89 09/04/24 17:50 Oxygen Delivery Method Room Air 09/04/24 17:50 Medications Administered Medications: Discontinued Medications Generic Name Dose Route Start Last Admin Trade Name Freq PRN Reason Stop Dose Admin Sodium Chloride 1,000 mls @ 1,000 mls/hr 09/04/24 19:15 09/04/24 20:09 0.9 % Sodium Chloride 1000 Ml IV 09/04/24 20:14 Infused .Q1H DIONY Infusion Ondansetron HCl 4 mg 09/04/24 19:05 09/04/24 19:30 Ondansetron 2 Mg/Ml Inj IVP 09/04/24 19:06 4 mg ONCE ONE Administration Medical Decision Making Lab Data Labs: Lab Results 09/04/24 09/04/24 Range/Units 18:45 19:45 WBC 4.92 (4.50-11.00) K/uL RBC 4.49 (4.30-5.90) m/uL Hgb 13.0 L (13.5-17.5) gm/dL Hct 37.9 (37.0-53.0) % MCV 84 (80-100) fL MCH 29 (26-34) pg MCHC 34 (32-36) gm/dL RDW Coeff of Noe 12.9 (11.5-15.5) % Plt Count 151 (140-440) K/uL Neut % (Auto) 61.6 (42.0-72.0) % Lymph % (Auto) 11.2 L (20-44) % [place] % (Auto) 26.0 H (0.0-11.0) % Eos % (Auto) 0.2 (0.0-7.0) % Baso % (Auto) 0.6 (0.0-3.0) % Neut # (Auto) 3.03 (1.7-7.0) K/uL Lymph # (Auto) 0.60 L (0.90-2.90) K/uL [place] # (Auto) 1.30 H (0.00-0.90) K/UL Eos # (Auto) 0.01 (0.00-0.50) K/uL Baso # (Auto) 0.03 (0.00-0.30) K/uL Abs Immat Gran (auto) 0.02 (0.00-0.30) K/uL Imm/Tot Granulo (auto) 0.4 % Sodium 129 L (135-149) mmol/L Potassium 4.0 (3.6-5.1) mmol/L Chloride 91 L (96-114) mmol/L Carbon Dioxide 30 (20-32) mmol/L Anion Gap 8 (7-15) mEq/L BUN 11 (5-24) mg/dL Creatinine 0.6 (0.5-1.5) mg/dL Estimated GFR 121 ml/min Glucose 128 H (60-115) mg/dL Lactate 1.1 (0.5-1.9) mmol/L Calcium 8.9 (8.4-10.6) mg/dL Magnesium 1.9 (1.5-2.6) mg/dL Total Bilirubin 0.4 (0.1-1.5) mg/dL Direct Bilirubin 0.2 (0.0-0.5) mg/dL AST 57 H (12-35) U/L ALT 66 H (4-50) U/L Alkaline Phosphatase 42 (40-150) U/L NT-Pro-B Natriuret Pep 72 pg/mL Total Protein 8.0 (6.0-8.3) g/dL Albumin 4.5 (3.3-5.0) g/dL SARS-CoV-2 (PCR) Negative SARS-CoV-2 (Negative) Influenza Type A (PCR) POSITIVE PCR FLU A A (Negative) Influenza Type B (PCR) Negative PCR FLU B (Negative) RSV (PCR) Negative PCR RSV (Negative) POC Troponin I 0.02 (0.01-0.04) ng/ml Discharge Plan Discharge Clinical Impression: Pleural effusion, Hypoxia, Acute hyponatremia, BECKI (obstructive sleep apnea), Influenza A Patient Disposition: Admitted As Observation
--- NOTE | 2024-09-04 18:48 | CRLHL7_ITS ---
For Patients: As a result of the Century Cures Act, medical imaging exams and procedure reports are released immediately into your electronic medical record. You may view this report before your referring provider. If you have questions, please contact your health care provider. INDICATION: Nausea abdominal distention TECHNIQUE: CT abdomen and pelvis with 95 mL Isovue 370 contrast. COMPARISON: CT FINDINGS: Lower chest: Small effusions Liver: Enlarged liver with fatty appearance. Gallbladder and bile ducts: No stones or inflammation. No biliary dilatation. Pancreas: Unremarkable. No mass or inflammation. Spleen: Normal in size. No masses. Adrenal glands: Normal in size. No nodules. Kidneys: Normal in size. No suspicious masses, stones, or hydronephrosis. GI tract: Large amount of stool in the colon mild gaseous distention of colonic bowel loops. No obstruction. Fluid-filled small bowel loops. Vasculature: Abdominal aorta is normal in caliber. Lymph nodes: No lymphadenopathy. Peritoneum/Abdominal Wall: Unremarkable. No sign of mass or infiltration. No free air or significant free fluid. Pelvis: Enlarged prostate gland. Bones: Unremarkable for age. IMPRESSION: 1. Abundant stool in the colon gaseous distention of colonic bowel loops. No obstruction is seen. Fluid-filled small bowel loops nonspecific however could consider enteritis. 2. Hepatomegaly with hepatic steatosis. 3. Small effusions. Please note that all CT scans at this facility use dose modulation, iterative reconstruction, and/or weight-based dosing when appropriate to reduce radiation dose to as low as reasonably achievable. Dictated by Tyra Guerrier MD @ 09/04/2024 7:54:32 PM (Electronically Signed)
[2024-09-04 18:53] LABS: Lactate* 1.1 mmol/L (0.5-1.9)
[2024-09-04 18:56] LABS: Basophils Absolute Auto 0.03 K/uL (0.00-0.30); Basophils Percent Auto 0.6 % (0.0-3.0); Eosinophils Absolute Auto 0.01 K/uL (0.00-0.50); Eosinophils Percent Auto 0.2 % (0.0-7.0); Hematocrit 37.9 % (37.0-53.0); Immature Granulocytes Abs Auto 0.02 K/uL (0.00-0.30); Immature Granulocytes Pct Auto 0.4 %; Lymphocytes Percent Auto 11.2 % (20-44); Mean Corpuscular HGB Conc 34 gm/dL (32-36); Mean Corpuscular Hemoglobin 29 pg (26-34); Mean Corpuscular Volume 84 fL (80-100); Neutrophils Absolute Auto 3.03 K/uL (1.7-7.0); Neutrophils Percent Auto 61.6 % (42.0-72.0); Platelet Count* 151 K/uL (140-440); RDW Coefficient of Variation % 12.9 % (11.5-15.5); Red Blood Count 4.49 m/uL (4.30-5.90); White Blood Count* 4.92 K/uL (4.50-11.00)
[2024-09-04 19:01] LABS: Slide Review Reflex No
[2024-09-04 19:08] LABS: Albumin* 4.5 g/dL (3.3-5.0); Troponin, Point-of-Care* 0.02 ng/ml (0.01-0.04)
--- OUTSIDE RECORDS SUMMARY | 2024-09-04 19:08 | XMS_ITS | Referral Summary ---
Author Organization [facility] Address [address] [place] [address] Care Team Providers Care Bleach Boiler Filler Name Role Phone Jass La MD Primary Care Provider +1- [phone] Allergies No known active allergies Medications divalproex [...] on file Legal Sex Male 3:24 AM HOUSEKEEPING CLEANER Gender Identity Not on file Sexual Orientation Not on file Last Filed Vital Signs Vital Sign Reading Time Taken Comments Blood Pressure 133/86 10/11/2021 8:08 AM HOUSEKEEPING CLEANER Pulse 82 10/11/2021 8:08 AM HOUSEKEEPING CLEANER Temperature 36.9 C (98.5 F) 10/11/2021 8:08 AM HOUSEKEEPING CLEANER Respiratory Rate 20 10/11/2021 8:08 AM HOUSEKEEPING CLEANER Oxygen Saturation 92% 10/11/2021 9:3 5 AM HOUSEKEEPING CLEANER with activity Inhaled Oxygen Concentration - - Weight 103.6 kg (228 lb 4.8 oz) 10/04/2021 6:00 PM HOUSEKEEPING CLEANER Height 180.3 cm (5' 11) 10/04/2021 11: 50 AM HOUSEKEEPING CLEANER Body Mass Index 31.84 10/04/2021 11:50 AM HOUSEKEEPING CLEANER Plan of Treatment Not on file Procedures Procedure Name Priority Date/Time Associated Diagnosis Comments BASIC METABOLIC PANEL Routine 10/05/2021 7:03 AM HOUSEKEEPING CLEANER from Last 3 Months or Most Recently Relevant to Health Maintenance Results * (ABNORMAL) Basic metabolic panel (10/05/2021 7:03 AM HOUSEKEEPING CLEANER) Sodium 133 133 - 144 mmol/L 10/05/2021 7:43 AM [facility] Potassium 3.8 3.4 - 5.3 mmol/L 10/05/2021 7:43 AM [facility] Chloride 101 94 - 109 mmol/L 10/05/2021 7:43 AM [facility] Carbon Dioxide (CO2) 27 20 - 32 mmol/L 10/05/2021 7:43 AM [facility] Anion Gap 5 3 - 14 mmol/L 10/05/2021 7:43 AM [facility] Urea Nitrogen 14 7 - 30 mg/dL 10/05/2021 7:43 AM [facility] Creatinine 0.64(L) 0.66 - 1.25 mg/dL 10/05/2021 7:43 AM [facility] Calcium 10.0 8.5 - 10.1 mg/dL 10/05/2021 7:43 AM [facility] Glucose 143(H) 70 - 99 mg/dL 10/05/2021 7:43 AM [facility] GFR Estimate >90 >60 mL/min/1.7 3m2 10/05/2021 7:43 AM [facility] Comment:Effective July 122020 eGFRcr in adults is calculated using the 2020 CKD-EPI creatinine equation which includes age and gender (Saray et al., NEJM, DOI: 10.1056/[id number]) Blood STRUCTURE OF RIGHT HAND / Unknown Venipuncture / Unknown 10/05/2021 7:03 AM HOUSEKEEPING CLEANER 10/05/2021 7:13 AM HOUSEKEEPING CLEANER Boubacar Springer MD LAB - BLOOD ORDERABLES Final Result [facility] Acute Care Lab [address] Lab (1st floor, no room number) [place] [address], [facility] [phone] from Last 3 Months or Most Recently Relevant to Health Maintenance Insurance [employer] ACCESSABILITY ENHANCED Advance Directives For more information, please contact: [phone] Documents on File Type Date Recorded 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
--- OUTSIDE RECORDS SUMMARY | 2024-09-04 19:08 | XMS_ITS | Clinical Summary ---
Author Organization [facility] Address [place], [place] [address] Care Team Providers Care Reeling Operator Name Role Phone Jass La MD Primary Care Provider [phone]- [phone] Allergies No known active allergies Medications risperiDONE [...] Department Care Team Description 09/04/2024 Nurse Triage [facility] [address] [place] [address] Jass La MD oxygen concerns 09/03/2024 12:40 PM PATCH PRESS OPERATOR Office Visit [facility] [address] [place] [address] Jass La MD Follow Up (Go over test results from 08/25); Cough (3 days and seems to have laryngitis as well per parents) 09/03/2024 Travel 08/31/2024 Telephone [facility] [address] [place] [address] Jass La MD Abnormal Lab Results 08/30/2024 Telephone [facility] [address] [place] [address] Jass La MD Results 08/25/2024 1:10 PM PATCH PRESS OPERATOR Office Visit [facility] [address] [place] [address] Jass La MD Blood Pressure (Higher blood [...] on file Legal Sex Male 5:19 AM PATCH PRESS OPERATOR Gender Identity Not on file Sexual Orientation Not on file Occupation Industry Job Start Date Job End Date [employer] Not on file Not on f ile Not on file Obstetrics History Last Filed Vital Signs Vital Sign Reading Time Taken Comments Blood Pressure 124/87 09/03/2024 12:51 PM PATCH PRESS OPERATOR Pulse 97 09/03/2024 12:51 PM PATCH PRESS OPERATOR Temperature 37.1 C (98.7 F) 09/03/2024 12:51 PM PATCH PRESS OPERATOR Respiratory Rate 21 12/20/2022 3:30 PM CDT Oxygen Saturation 92% 09/03/2024 12: 51 PM PATCH PRESS OPERATOR Inhaled Oxygen Concentration - - Weight 112.4 kg (247 lb 12.8 oz) 08/25/2024 1:22 PM PATCH PRESS OPERATOR Height 181.6 cm (5' 11.5) 12/12/2022 1 0:07 AM CDT Body Mass Index 34.08 12/12/2022 10:07 AM CDT Plan of Treatment Upcoming Encounters Date Type Department Care Team (Late st Contact Info) Description 09/13/2024 1:00 PM PATCH PRESS OPERATOR Phone Office Visit [facility] [address] [place] [address] Nargis Monte, RD [address] [place] [address] Health Maintenance Due Date Last Done Comments [...] Type Associated Problems Recent Progress Patient-Stated? Author Cosby CC - engage in care coordination General [...] AXIS CC: ICT General Yes Kellen Levin, VETERINARY PRACTITIONER AXIS CC: COVID 19 General Yes Kellen [...] REFLEX MEASURED LDL Routine 09/03/2024 1:37 PM PATCH PRESS OPERATOR Type 2 diabetes mellitus without complication, without long-term current use of insulin (HC) GLUCOSE, FASTING Routine 09/03/2024 1:37 PM PATCH PRESS OPERATOR Type 2 diabetes mellitus without complication, without long-term current use of insulin (HC) BASIC METABOLIC PANEL Routine 08/25/2024 2:15 PM PATCH PRESS OPERATOR Elevated BP without diagnosis of hypertension LIPID PANEL W REFLEX MEASURED LDL Routine 08/25/2024 2:15 PM PATCH PRESS OPERATOR Lipid screening TSH WITH REFLEX Routine 08/25/2024 2:15 PM PATCH PRESS OPERATOR Other fatigue HEMOGLOBIN A1C Routine 08/25/2024 2:15 PM PATCH PRESS OPERATOR Hyperglycemia from Last 3 Months Results * (ABNORMAL) LIPID PANEL W REFLEX MEASURED LDL (09/03/2024 1:37 PM PATCH PRESS OPERATOR) Only the most recent of2 resultswithin the time period is included. CHOLESTEROL, TOTAL 172 <200 mg/dL [facility] HDL CHOLESTEROL 40 > OR = 40 mg/dL [facility] TRIGLYCERIDES 149 <150 mg/dL [facility] LDL-CHOLESTEROL 106(H) mg/dL (calc) [facility] Comment: Reference range: <100 Desirable range <100 mg/dL for primary prevention; <70 mg/dL for patients with CHD or diabetic patients with > or = 2 CHD risk factors. LDL-C is now calculated using the Raciel-Dillard calculation, which is a validated novel method providing better accuracy than the Friedewald equation in the estimation of LDL-C. Raciel SS et al. ROBERT. 2013;310(19): 7454-9623 (http://education.Route4Me.[employer]/faq/CVA310) CHOL/HDLC RATIO 4.3 <5.0 (calc) [facility] NON HDL CHOLESTEROL 132(H) <130 mg/dL (calc) [facility] Comment: For patients with diabetes plus 1 major ASCVD risk factor, treating to a non-HDL-C goal of <100 mg/dL (LDL-C of <70 mg/dL) is considered a therapeutic option. Blood BLOOD SPECIMEN / Unknown 09/03/2024 1:37 PM PATCH PRESS OPERATOR 09/03/2024 1:38 PM PATCH PRESS OPERATOR us Jass La MD CHEMISTRY Final Resu lt [email or web address] [facility] [address] [place] [address], [facility] [address] [place] [address] * (ABNORMAL) GLUCOSE, FASTING (09/03/2024 1:37 PM PATCH PRESS OPERATOR) GLUCOSE 106(H) 65 - 99 mg/dL [facility] Comment: Fasting reference interval For someone without known diabetes, a glucose value between 100 and 125 mg/dL is consistent with prediabetes and should be confirmed with a follow-up test. Blood BLOOD SPECIMEN / Unknown 09/03/2024 1:37 PM PATCH PRESS OPERATOR 09/03/2024 1:38 PM PATCH PRESS OPERATOR us Jass La MD CHEMISTRY Final Resu lt [email or web address] [address] [address], [facility] [address] [place] [address] * (ABNORMAL) HEMOGLOBIN A1C (08/25/2024 2:15 PM PATCH PRESS OPERATOR) [facility] HEMOGLOBIN A1C 7.3(H) <5.7 % of total Hgb [facility] Comment: For someone without known diabetes, [...] BLOOD SPECIMEN / Unknown 08/25/2024 2:15 PM PATCH PRESS OPERATOR 08/25/2024 2:16 PM PATCH PRESS OPERATOR us Jass La MD CHEMISTRY Final Resu lt Performing Organization Address City/[facility]/ZIP Co de Phone Number [email or web address] [id number] [place] [address], [facility] [address] [place] [address] * TSH WITH REFLEX (08/25/2024 2:15 PM PATCH PRESS OPERATOR) Pathologist [facility] TSH W/REFLEX TO FT4 3.08 0.40 - 4.50 mIU/L [facility] Blood BLOOD SPECIMEN / Unknown 08/25/2024 2:15 PM PATCH PRESS OPERATOR 08/25/2024 2:16 PM PATCH PRESS OPERATOR Jass La MD CHEMISTRY Final Resu lt Performing Organization Address [facility]/ZIP Co de Phone Number [email or web address] [address] [address], [facility] [address] [place] [address] * (ABNORMAL) BASIC METABOLIC PANEL (08/25/2024 2:15 PM PATCH PRESS OPERATOR) Pathologist [facility] GLUCOSE 148(H) 65 - 99 mg/dL [facility] [...] BLOOD SPECIMEN / Unknown 08/25/2024 2:15 PM PATCH PRESS OPERATOR 08/25/2024 2:16 PM PATCH PRESS OPERATOR us Jass La MD CHEMISTRY Final Resu lt [facility] [address] [place] [address], [facility] [address] [place] [address] from Last 3 Months Insurance [employer] [facility] Care Teams Reeling Operator Relationship Specialty Start Date End Date Jass La MD [address] [place] [address] PCP - General 01/31/06
[2024-09-04 19:09] LABS: Chloride* 91 mmol/L (96-114); Sodium* 129 mmol/L (135-149)
--- OUTSIDE RECORDS SUMMARY | 2024-09-04 19:09 | XMS_ITS | Clinical Summary ---
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 Name Role Phone Jass La MD Primary Care Provider +1- [phone] Allergies No known active allergies Medications divalproex [...] on file Legal Sex Male 3:24 AM CLAY MOLDER Gender Identity Not on file Sexual Orientation Not on file Last Filed Vital Signs Vital Sign Reading Time Taken Comments Blood Pressure 133/86 10/11/2021 8:08 AM CLAY MOLDER Pulse 82 10/11/2021 8:08 AM CLAY MOLDER Temperature 36.9 C (98.5 F) 10/11/2021 8:08 AM CLAY MOLDER Respiratory Rate 20 10/11/2021 8:08 AM CLAY MOLDER Oxygen Saturation 92% 10/11/2021 9:3 5 AM CLAY MOLDER with activity Inhaled Oxygen Concentration - - Weight 103.6 kg (228 lb 4.8 oz) 10/04/2021 6:00 PM CLAY MOLDER Height 180.3 cm (5' 11) 10/04/2021 11: 50 AM CLAY MOLDER Body Mass Index 31.84 10/04/2021 11:50 AM CLAY MOLDER Plan of Treatment Health Maintenance Due Date [...] BASIC METABOLIC PANEL Routine 10/05/2021 7:03 AM CLAY MOLDER from Last 3 Months or Most Recently Relevant to Health Maintenance Results * (ABNORMAL) Basic metabolic panel (10/05/2021 7:03 AM CLAY MOLDER) Sodium 133 133 - 144 mmol/L 10/05/2021 7:43 AM [facility] Potassium 3.8 3.4 - 5.3 mmol/L 10/05/2021 7:43 AM [facility] Chloride 101 94 - 109 mmol/L 10/05/2021 7:43 AM [facility] Carbon Dioxide (CO2) 27 20 - 32 mmol/L 10/05/2021 7:43 AM [facility] Anion Gap 5 3 - 14 mmol/L 10/05/2021 7:43 AM [facility] Urea Nitrogen 14 7 - 30 mg/dL 10/05/2021 7:43 AM [facility] Creatinine 0.64(L) 0.66 - 1.25 mg/dL 10/05/2021 7:43 AM [facility] Calcium 10.0 8.5 - 10.1 mg/dL 10/05/2021 7:43 AM [facility] Glucose 143(H) 70 - 99 mg/dL 10/05/2021 7:43 AM [facility] GFR Estimate >90 >60 mL/min/1.7 3m2 10/05/2021 7:43 AM [facility] Comment:Effective July 122020 eGFRcr in adults is calculated using the 2020 CKD-EPI creatinine equation which includes age and gender (Saary et al., NEJM, DOI: 10.1056/MYFElx4720354) Blood STRUCTURE OF RIGHT HAND / Unknown Venipuncture / Unknown 10/05/2021 7:03 AM CLAY MOLDER 10/05/2021 7:13 AM [facility] us Boubacar Springer MD LAB - BLOOD ORDERABLES Final Result LABORATORY [facility] [address] Lab (1st floor, no room number) [place] [address], [facility] [phone] from Last 3 Months or Most Recently Relevant to Health Maintenance Insurance [employer] [address] Advance Directives For more information, please contact: [phone] Documents on File Type Date Recorded Patient 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
[2024-09-04 19:11] LABS: Alkaline Phosphatase* 42 U/L (40-150); Anion Gap 8 mEq/L (7-15); Aspartate Amino Transferase* 57 U/L (12-35); Bilirubin Direct* 0.2 mg/dL (0.0-0.5); Bilirubin Total* 0.4 mg/dL (0.1-1.5); Blood Urea Nitrogen* 11 mg/dL (5-24); Carbon Dioxide* 30 mmol/L (20-32); Creatinine* 0.6 mg/dL (0.5-1.5); Estimated Glomerular Filt Rate 121 ml/min; Glucose* 128 mg/dL (60-115)
[2024-09-04 19:12] LABS: Alanine Aminotransferase* 66 U/L (4-50); Calcium* 8.9 mg/dL (8.4-10.6); Magnesium* 1.9 mg/dL (1.5-2.6)
[2024-09-04 19:23] LABS: NT Pro B Type NatriureticPept* 72 pg/mL
[2024-09-04] MEDS: ONDANSETRON 2 MG/ML inj 4 MG IVP (19:30)
[2024-09-04] MEDS: 0.9 % SODIUM CHLORIDE 1000 ml 1,000 ML IV (19:30)
[2024-09-04 21:12] LABS: PCR FLU A POSITIVE PCR FLU A (Negative); PCR FLU B Negative PCR FLU B (Negative); PCR RSV Negative PCR RSV (Negative); SARS PCR* Negative SARS-CoV-2 (Negative)
[2024-09-04] MEDS: OSELTAMIVIR PHOSPHATE 75 MG CAPSULE PO (21:39)
[2024-09-04] MEDS: ACETAMINOPHEN 500 MG TABLET 1000 MG PO (21:39)
--- NOTE | 2024-09-04 22:47 | P.IMHP_ITS ---
Hospitalist- H&P: HPI History of Present Illness Date Seen: 09/04/24 Chief complaint: low oxygen, low sodium, nausea Narrative: Chavo Baca is a 44 year old male with a history of DM2, BECKI, autism, OCD, bipolar disorder who presented to the ER this evening for vomiting. He's been vomiting for the past day, no hematemesis. No diarrhea. Also has had a cough, started on Azithromycin and Tessalon Perles recently with no relief. Also has had abdominal distention without pain, doesn't think he's been passing a lot of gas recently. + constipation, per mom. History of MSSA bacteremia in 2022, hospitalized here and then transferred to tertiary care facility. ER: - + influenza A - hypoxia with O2 saturations as low as 85% on RA - small bilateral pleural effusions - + stool burden on CT without obstruction - Na 129 (was 131 in clinic 2 weeks ago) Admitted for acute hypoxic respiratory failure in the setting of Influenza A Histories updated below, Dr. La is PCP. Review of Systems Status of ROS: Reports: 10 or more systems reviewed and unremarkable except as noted in History and below [facility] Medical History (Updated 09/04/24 @ 23:18 by Lara Waters MD) Non-insulin dependent diabetes mellitus MSSA bacteremia ?R78.81 - Bacteremia (ICD-10) ?B95.61 - Methicillin susceptible Staphylococcus aureus infection as the cause of diseases classified elsewhere (ICD-10) Bacteremia ?R78.81 - Bacteremia (ICD-10) Hepatic steatosis ?K76.0 - Fatty (change of) liver, not elsewhere classified (ICD-10) Obesity ?E66.9 - Obesity, unspecified (ICD-10) Obstructive sleep apnea ?G47.33 - Obstructive sleep apnea (adult) (pediatric) (ICD-10) Obesity hypoventilation syndrome ?E66.2 - Morbid (severe) obesity with alveolar hypoventilation (ICD-10) Gout ?M10.9 - Gout, unspecified (ICD-10) OCD (obsessive compulsive disorder) ?F42.9 - Obsessive-compulsive disorder, unspecified (ICD-10) Bipolar disorder ?F31.9 - Bipolar disorder, unspecified (ICD-10) Autism ?F84.0 - Autistic disorder (ICD-10) Surgical History History of appendectomy ?Z90.49 - Acquired absence of other specified parts of digestive tract (ICD- 10) Family History Father High cholesterol Social History Narrative: He lives with his parents. Limited verbal communication secondary to autism. Mother reports that he does have excessive eating and it is hard to control is oral intake. The lock the refrigerator. Smoking Status: Never smoker Do you use any of these nicotine containing products: None Second hand tobacco smoke exposure: No How often do you have a drink containing alcohol: never How often do you have six or more drinks on one occasion: Never AUDIT-C Alcohol total score: 0 Non-prescribed substance use: denies use Caffeine: Yes (Soda) service: No Meds Home Medications and Allergies Home Medications ?Medication ?Instructions ?Recorded ?Confirmed ?Type divalproex 500 mg tablet,extended 1,000 mg PO DAILY 10/14/22 09/06/23 History release 24 hr fluvoxamine 100 mg tablet 150 mg PO BID 10/14/22 09/04/24 History gabapentin 600 mg tablet 600 mg PO DAILY 10/14/22 09/04/24 History risperidone 4 mg tablet 5 mg PO BID 10/14/22 09/04/24 History diclofenac sodium 1 % topical gel 2 g topical QID PRN low back pain 10/23/22 09/04/24 History lorazepam 1 mg tablet 1 mg PO HS PRN 12/08/22 09/04/24 History propranolol 10 mg tablet 10 mg PO Q12H 09/04/24 09/04/24 History Allergies Allergy/AdvReac Type Severity Reaction Status Date / Time No Known Drug Allergies Allergy Verified 09/04/24 19:05 Exam Narrative: Exam Narrative: GEN: Sitting comfortably in bed and answering questions appropriately HEENT: EOMIs bilaterally, no scleral icterus CV: RRR, No concerning murmurs R: Fine bibasilar rales, no wheezing Ab: Distended, no tenderness to palpation, hyperactive bowel sounds throughout Ext: wwp, no concerning edema Skin: No concerning skin lesions or rashes on exposed skin Neuro: Nonfocal Psych: No agitation Const: Vital Signs, click to edit/add: Vital Signs - 24 hr 09/04/24 17:50 Temperature 99.4 F Pulse Rate [Pulse Oximeter] 120 H Respiratory Rate 24 Blood Pressure [Ri ght Upper Arm] 143/92 H Pulse Oximetry 89 Oxygen Delivery Me thod Room Air Hospitalist - H&P: Result Labs Labs: Short CBC 09/04/24 Range/Units 18:45 WBC 4.92 (4.50-11.00) K/uL Hgb 13.0 L (13.5-17.5) gm/dL Hct 37.9 (37.0-53.0) % Plt Count 151 (140-440) K/uL BMP 09/04/24 18:45 Sodium 129 L Potassium 4.0 Chloride 91 L Carbon Dioxide 30 BUN 11 Creatinine 0.6 Glucose 128 H Calcium 8.9 Liver Function 09/04/24 Range/Units 18:45 Total Bilirubin 0.4 (0.1-1.5) mg/dL Direct Bilirubin 0.2 (0.0-0.5) mg/dL AST 57 H (12-35) U/L ALT 66 H (4-50) U/L Alkaline Phosphatase 42 (40-150) U/L Albumin 4.5 (3.3-5.0) g/dL Assessment and Plan Assessment and plan (1) Hypoxia: Problem comment: - as low as 85% on - 09/12 influenza A - supportive cares, cough suppression Status: Acute (2) Influenza A: Problem comment: - reviewed treatment options with mom, she would like to defer Tamiflu at this time - supportive cares, cough suppression (patient has chronic cough, was on antibiotics for months in 2022 for MSSA bacteremia) Status: Acute (3) Acute hyponatremia: Problem comment: - Na of 129 on 09/04/24 - likely combination of iatrogenic + increased free water intake and poor solute intake during illness - follow, add solute, will not institute fluid restriction at this time but follow closely Status: Acute (4) Pleural effusion: Problem comment: - bilateral, normal EF on TTE in the past - possibly contributing to coughing paroxysms Status: Acute (5) BECKI (obstructive sleep apnea): Status: Acute (6) Non-insulin dependent diabetes mellitus: Problem comment: - new diagnosis, 7.3 A1C in August 2024 - no meds at this time per mom, close PCP f/u - BID accuchecks Status: Acute (7) Constipation: Problem comment: - noted on imaging, no obstruction - aggressive bowel regimen Status: Acute Plan - per above - mother updated at bedside, questions answered - Full Code - Lovenox for ppx - inpatient appropriate for acute hypoxic respiratory failure, need for supplemental oxygen, multiple high risk comorbidities
[2024-09-04] MEDS: PROPRANOLOL 20 MG TABLET 10 MG PO (23:34)
[2024-09-04] MEDS: polyethylene glycoL 3350 17 GM PACK PO (23:35)
[2024-09-05 00:05] VITALS: RESP 22; O2SAT 97
[2024-09-05 00:06] VITALS: RESP 22; O2SAT 97
[2024-09-05 02:54] VITALS: BP 141/108; PULSE 83; RESP 20; TEMP 36.8; O2SAT 96
[2024-09-05] MEDS: ACETAMINOPHEN 325 MG TABLET 975 MG PO (06:14)
--- NOTE | 2024-09-05 06:22 | PC.NURSE ---
End of shift [id number]: Pt A&O pleasant and cooperative. pt will give one world replies but answers questions appropriately. afebrile. on 2 L of oxygen to maintain sats >90%. placed on oxymask overnight d/t pt strictly breathing through mouth. pt reporting intermittent abd pain. bowel sounds active. Miralax given. x2 moderate BMs overnight. bed alarm in place. pt using call light appropriately.
[2024-09-05 07:00] VITALS: BP 154/108; PULSE 77; RESP 20; TEMP 36.8; O2SAT 95; O2SAT 96
[2024-09-05 07:33] LABS: Basophils Percent Auto 0.6 % (0.0-3.0); Eosinophils Percent Auto 0.3 % (0.0-7.0); Hematocrit 36.4 % (37.0-53.0); Hemoglobin* 12.4 gm/dL (13.5-17.5); Immature Granulocytes Pct Auto 0.3 %; Lymphocytes Percent Auto 41.6 % (20-44); Mean Corpuscular HGB Conc 34 gm/dL (32-36); Mean Corpuscular Hemoglobin 29 pg (26-34); Mean Corpuscular Volume 85 fL (80-100); Monocytes Percent Auto 25.1 % (0.0-11.0); Neutrophils Percent Auto 32.1 % (42.0-72.0); Platelet Count* 144 K/uL (140-440); Red Blood Count 4.28 m/uL (4.30-5.90); White Blood Count* 3.63 K/uL (4.50-11.00)
[2024-09-05 07:39] LABS: Slide Review Reflex No
[2024-09-05 07:40] LABS: Albumin* 4.2 g/dL (3.3-5.0); Chloride* 92 mmol/L (96-114); Sodium* 132 mmol/L (135-149)
[2024-09-05 07:41] LABS: Potassium* 3.8 mmol/L (3.6-5.1)
[2024-09-05 07:43] LABS: Alanine Aminotransferase* 69 U/L (4-50); Alkaline Phosphatase* 37 U/L (40-150); Anion Gap 8 mEq/L (7-15); Aspartate Amino Transferase* 58 U/L (12-35); Bilirubin Total* 0.4 mg/dL (0.1-1.5); Blood Urea Nitrogen* 13 mg/dL (5-24); Calcium* 8.7 mg/dL (8.4-10.6); Carbon Dioxide* 32 mmol/L (20-32); Creatinine* 0.6 mg/dL (0.5-1.5); Est. Creatinine Clearance* 165.59; Estimated Glomerular Filt Rate 121 ml/min; Glucose* 122 mg/dL (60-115); Total Protein* 7.5 g/dL (6.0-8.3)
[2024-09-05] MEDS: SODIUM CHLORIDE 0.9 % (FLUSH) 10 ML SYRINGE 5 ML IVF (09:26)
[2024-09-05] MEDS: risperiDONE 1 MG TABLET 5 MG PO (09:26)
[2024-09-05 09:30] LABS: Procalcitonin* 0.13 ng/mL (<0.50)
[2024-09-05] MEDS: PROPRANOLOL 20 MG TABLET 10 MG PO (09:32)
[2024-09-05 11:00] VITALS: BP 133/83; PULSE 82; RESP 20; TEMP 36.8; O2SAT 94
--- NOTE | 2024-09-05 14:45 | PM.DS1 ---
DS: Providers Provider Date Seen: 09/05/24 Date of admission: 09/04/24 22:59 Primary care physician: Jass La MD Admitting Clinician: Lara Waters MD Consults: 09/04/24 22:59 Consult to Physical Therapy [CONS] Routine Comment: Reason(s) for PT Consult:: Evaluate and Treat Any Restrictions?:: No Restrictions Comment: evaluate O2 while ambulating please Consult to Respiratory Therapy [CONS] Routine Comment: Reason(s) for RT Consult:: Consult Attending Physician on discharge: SCARLETT [place], [facility] Date of Discharge: 09/05/24 DS: Diagnosis Discharge Diagnosis (1) Hypoxia: Status: Acute Problem details: - as low as 85% on RA - 09/12 influenza A, viral management - procalcitonin 0.13, no leukocytosis, lactate 1.1, CT unremarkable for focal consolidations, no evidence of bacterial pneumonia at this time, defer antibiotics - supportive cares, cough suppression Discussed with mother, respiratory therapy having the same discussion with her, concern for sleep apnea, not previously diagnosed or managed. Hypoxia most pronounced when lying on back or even in reclined position. Very sonorous with even brief apnea. Oxygenation actually improved when upright and ambulating. Respiratory therapy recommending no further oxygen supplementation and increasing mobility. Discussed with mother, no need for home oxygen. Recommending outpatient follow-up with PCP for formal sleep study. Mother initially resistant to this, concerned that patient would not comply, but willing to consider. (2) Influenza A: Status: Acute Problem details: - reviewed treatment options with mom, she would like to defer Tamiflu at this time - supportive cares, cough suppression (patient has chronic cough, was on antibiotics for months in 2022 for MSSA bacteremia) (3) Acute hyponatremia: Status: Acute Problem details: Acute on chronic recurrent - Na of 129 on 09/04/24 - likely combination of iatrogenic + increased free water intake and poor solute intake during illness - follow, add solute, will not institute fluid restriction at this time but follow closely Sodium improved to 132 on day of discharge. Mother reports patient consumes large amounts of free water if not monitored. They have to lock the refrigerator at home to prevent over eating as well. She will continue with fluid restriction/diet at home. (4) Pleural effusion: Status: Acute Problem details: - bilateral, normal EF on TTE in the past - possibly contributing to coughing paroxysms (5) BECKI (obstructive sleep apnea): Status: Acute Problem details: - suspected, recommending formal outpatient sleep study, PCP to schedule (6) Non-insulin dependent diabetes mellitus: Status: Acute Problem details: - new diagnosis, 7.3 A1C in August 2024 - no meds at this time per mom, close PCP f/u - BID accuchecks (7) Constipation: Status: Acute Problem details: - noted on imaging, no obstruction - aggressive bowel regimen - had 2 bowel movements prior to discharge (8) Hepatomegaly: Status: Acute Problem details: -CT shows hepatomegaly with hepatic steatosis. Outpatient follow-up DS: Summary Hospital Course Hospital Course: Course of care and details as noted above. Patient hypoxic on admission. Acute on chronic recurrent. Per mother, patient does have hypoxia at home, checking with oximeter. In setting of influenza a, this has worsened. Observed overnight, hypoxia notable only when lying flat or reclined. Oxygenation actually improved to mid 90s with ambulation, activity. Mother raise concern of chronic cough, recurrent bronchial infections seasonally. Reports frequent hospitalizations. Discussed risk given chronic medical comorbidities. Mother reports having tried holistic approaches as well. After discussion with myself and respiratory therapy, respiratory therapy recommending no further supplemental oxygen nor returning home with home oxygen, mother verbalizes understanding and is requesting to discharge to home today. Recommend outpatient formal sleep study which PCP can set up. Remainder of chronic medical comorbidities were monitored and managed with home medications. Status at Discharge Functional status at discharge: independent ambulation Overall status at discharge: patient is back to baseline Time Spent with Patient Time attestation: Total time spent providing and/or coordinating discharge services: Time spent: Greater than 30 minutes Exam Narrative: Exam Narrative: PHYSICAL EXAM General: Sleepy, minimal interaction, brief eye contact Cardiovascular: RRR Pulmonary: Sonorous, brief apnea Neurological: No focal concerns Skin: Warm, dry. Const: Vital Signs, click to edit/add: Vital Signs - 24 hr 09/04/24 17:50 09/04/24 19:48 09/04/24 20:00 Temperature 99.4 F Pulse Rate 90 92 Pulse Rate [Pulse Oximeter] 120 H Respiratory Rate 24 Blood Pressure [Ri ght Arm] Blood Pressure [Ri ght Upper Arm] 143/92 H Pulse Oximetry 89 94 95 Oxygen Delivery Me thod Room Air Oxygen Flow Rate 09/04/24 20:16 09/04/24 20:30 09/04/24 20:45 Temperature Pulse Rate 92 86 86 Pulse Rate [Pulse Oximeter] Respiratory Rate Blood Pressure [Ri ght Arm] Blood Pressure [Ri ght Upper Arm] Pulse Oximetry 91 92 92 Oxygen Delivery Me thod Oxygen Flow Rate 09/04/24 21:00 09/04/24 21:15 09/04/24 21:30 Temperature Pulse Rate 87 91 85 Pulse Rate [Pulse Oximeter] Respiratory Rate Blood Pressure [Ri ght Arm] Blood Pressure [Ri ght Upper Arm] Pulse Oximetry 85 L 92 92 Oxygen Delivery Me thod Room Air Oxygen Flow Rate 09/04/24 21:53 09/04/24 23:32 09/05/24 00:05 Temperature 99.1 F 98.9 F Pulse Rate Pulse Rate [Pulse Oximeter] 81 Respiratory Rate 24 22 22 Blood Pressure [Ri ght Arm] 155/98 H Blood Pressure [Ri ght Upper Arm] Pulse Oximetry 95 97 97 Oxygen Delivery Me thod Room Air Nasal Cannula Nasal Cannula Oxygen Flow Rate 1.5 2 09/05/24 00:06 09/05/24 02:54 09/05/24 07:00 Temperature 98.2 F Pulse Rate Pulse Rate [Pulse Oximeter] 83 77 Respiratory Rate 22 20 20 Blood Pressure [Ri ght Arm] 141/108 H Blood Pressure [Ri ght Upper Arm] Pulse Oximetry 97 96 Oxygen Delivery Me thod OxyMask OxyMask Oxygen Flow Rate 2 2 09/05/24 07:00 09/05/24 07:00 09/05/24 11:00 Temperature 98.2 F 98.2 F Pulse Rate Pulse Rate [Pulse Oximeter] 77 82 Respiratory Rate 20 20 20 Blood Pressure [Ri ght Arm] 154/108 H 133/83 Blood Pressure [Ri ght Upper Arm] Pulse Oximetry 95 96 94 Oxygen Delivery Me thod OxyMask OxyMask Nasal Cannula Oxygen Flow Rate 2 2 1 DS: Data Data Completed and Pending Completed studies during hospitalization: Procedures Drainage of Bladder with Drainage Device, Via Natural or Artificial Opening (10/15/22) Introduction of Other Gas into Respiratory Tract, Via Natural or Artificial Opening (10/15/22) Labs on day of discharge: Labs from last 24 hours 09/05/24 09/05/24 09/04/24 08:58 06:27 20:29 WBC 3.63 L RBC 4.28 L Hgb 12.4 L Hct 36.4 L MCV 85 MCH 29 MCHC 34 RDW Coeff of Noe 13.0 Plt Count 144 Neut % (Auto) 32.1 L Lymph % (Auto) 41.6 [place] % (Auto) 25.1 H Eos % (Auto) 0.3 Baso % (Auto) 0.6 Neut # (Auto) 1.20 L Lymph # (Auto) 1.50 [place] # (Auto) 0.90 Eos # (Auto) 0.00 Baso # (Auto) 0.00 Abs Immat Gran (auto) 0.00 Imm/Tot Granulo (auto) 0.3 Sodium 132 L Potassium 3.8 Chloride 92 L Carbon Dioxide 32 Anion Gap 8 BUN 13 Creatinine 0.6 Estimated Creat Clear 165.59 Estimated GFR 121 Glucose 122 H Lactate Calcium 8.7 Magnesium Total Bilirubin 0.4 Direct Bilirubin AST 58 H ALT 69 H Alkaline Phosphatase 37 L NT-Pro-B Natriuret Pep Total Protein 7.5 Albumin 4.2 Procalcitonin 0.13 Free Valproic Acid Total Valproic Acid % Free Valproic Acid SARS-CoV-2 (PCR) Influenza Type A (PCR) Influenza Type B (PCR) RSV (PCR) Lab Acknowledgement Test Added Test Added POC Creatinine POC Troponin I 09/04/24 09/04/24 09/04/24 19:45 18:52 18:45 WBC 4.92 RBC 4.49 Hgb 13.0 L Hct 37.9 MCV 84 MCH 29 MCHC 34 RDW Coeff of Noe 12.9 Plt Count 151 Neut % (Auto) 61.6 Lymph % (Auto) 11.[address] % (Auto) 26.0 H Eos % (Auto) 0.2 Baso % (Auto) 0.6 Neut # (Auto) 3.03 Lymph # (Auto) 0.[address] # (Auto) 1.30 H Eos # (Auto) 0.01 Baso # (Auto) 0.03 Abs Immat Gran (auto) 0.02 Imm/Tot Granulo (auto) 0.4 Sodium 129 L Potassium 4.0 Chloride 91 L Carbon Dioxide 30 Anion Gap 8 BUN 11 Creatinine 0.6 Estimated Creat Clear Estimated GFR 121 Glucose 128 H Lactate 1.1 Calcium 8.9 Magnesium 1.9 Total Bilirubin 0.4 Direct Bilirubin 0.2 AST 57 H ALT 66 H Alkaline Phosphatase 42 NT-Pro-B Natriuret Pep 72 Total Protein 8.0 Albumin 4.5 Procalcitonin Free Valproic Acid Pending Total Valproic Acid Pending % Free Valproic Acid Pending SARS-CoV-2 (PCR) Negative SARS-CoV-2 Influenza Type A (PCR) POSITIVE PCR FLU A A Influenza Type B (PCR) Negative PCR FLU B RSV (PCR) Negative PCR RSV Lab Acknowledgement POC Creatinine Pending POC Troponin I 0.02 Imaging CTA chest: Attestation: I have reviewed the pertinent imaging results. Radiologist's impression: Lungs and pleura: Small effusions bilaterally. Heart and vasculature: Heart size is normal. Thoracic aorta and pulmonary artery are normal in caliber. Significant respiratory motion limits evaluation of distal pulmonary emboli. No central or proximal pulmonary emboli seen Lymph nodes/mediastinum: No mediastinal, hilar, or axillary adenopathy. Chest wall: No masses. Upper abdomen: Fatty appearance of the liver Bones: Unremarkable for age. IMPRESSION: 1. Significant respiratory motion limits evaluation for distal pulmonary emboli. No central or proximal pulmonary emboli seen. Small effusions bilaterally CT abdomen pelvis: Attestation: I have reviewed the pertinent imaging results. Radiologist's impression: Lower chest: Small effusions Liver: Enlarged liver with fatty appearance. Gallbladder and bile ducts: No stones or inflammation. No biliary dilatation. Pancreas: Unremarkable. No mass or inflammation. Spleen: Normal in size. No masses. Adrenal glands: Normal in size. No nodules. Kidneys: Normal in size. No suspicious masses, stones, or hydronephrosis. GI tract: Large amount of stool in the colon mild gaseous distention of colonic bowel loops. No obstruction. Fluid-filled small bowel loops. Vasculature: Abdominal aorta is normal in caliber. Lymph nodes: No lymphadenopathy. Peritoneum/Abdominal Wall: Unremarkable. No sign of mass or infiltration. No free air or significant free fluid. Pelvis: Enlarged prostate gland. Bones: Unremarkable for age. IMPRESSION: 1. Abundant stool in the colon gaseous distention of colonic bowel loops. No obstruction is seen. Fluid-filled small bowel loops nonspecific however could consider enteritis. 2. Hepatomegaly with hepatic steatosis. 3. Small effusions. Discharge Plan Discharge Disposition: Home, Self-Care Date of Admission: 09/04/24 22:59 Attending Provider on Discharge: Ngoc Valdez Primary Care Provider: Jass La Condition: Stable Anticipated Discharge Date/Time: 09/05/24 14:39 Discharge Medications: Continued risperidone 4 mg tablet 4 mg PO BID Patient Comments: total of 5 mg bid fluvoxamine 100 mg tablet 150 mg PO BID Patient Comments: take 1.5 tablets by mouth twice daily. divalproex 500 mg tablet extended release 24 hr 2,000 mg PO HS lorazepam 1 mg tablet 1 mg PO HS PRN propranolol 10 mg tablet 10 mg PO Q12H Rx Instructions: Take 10 mg by mouth two times daily. risperidone 1 mg tablet 1 mg PO BID Patient Comments: total of 5mg bid Discontinued azithromycin 250 mg tablet 250 - 500 mg PO DAILY Patient Comments: TAKE 2 TABLETS BY MOUTH ON DAY 1, THEN 1 TABLET DAILY ON DAYS 2-5.* Discharge Orders: Discharge Order (Routine); Ordered 09/05/24 Ordered By: Ngoc Valdez Patient Education: Influenza (GEN) Additional Instructions: Influenza A - symptomatic cares. Decision was made with you to not start Tamiflu. Sodium improved to 132. Continue to monitor fluid intake/free water drinks. Recommend outpatient sleep study - this can be arranged by Dr. La Activity Level: No Restrictions Discharge Diet: Diabetic Follow Up Appointments: Jass La MD [Primary Care Provider] - (Outpatient follow-up 5-7 days, sooner if new or worsening symptoms) Forms: [employer] Info Instructions
[2024-09-05 16:09] VITALS: BP 125/86; PULSE 82; TEMP 36.4; O2SAT 90
[2024-09-07 16:39] LABS: Valproic Acid, Free 14 ug/mL (7-23); Valproic Acid, Percent Free 14 % (5-18); Valproic Acid, Total 100 ug/mL (50-125)
== END 2024-09-05 16:45 | disposition home or self-care (01) | DRG 193 ==
LOC: ED 21:10 → MEDSURG 21:50
PROVIDERS: Physician Assistant; Admitting Provider Family Medicine; Emergency Provider Family Medicine; PCP Family Medicine; Visit Provider Family Medicine
DX: J10.1 Influenza due to other identified influenza virus with other respiratory manifestations (principal); J96.01 Acute respiratory failure with hypoxia; E87.1 Hypo-osmolality and hyponatremia; F84.0 Autistic disorder; E66.2 Morbid (severe) obesity with alveolar hypoventilation; J90 Pleural effusion, not elsewhere classified; E11.9 Type 2 diabetes mellitus without complications; K59.00 Constipation, unspecified; K76.89 Other specified diseases of liver; F31.9 Bipolar disorder, unspecified; F42.9 Obsessive-compulsive disorder, unspecified; K76.0 Fatty (change of) liver, not elsewhere classified; Z68.33 Body mass index [BMI] 33.0-33.9, adult
CPT/HCPCS: 36415; 71275; 74177; 80048; 80053; 80076; 80164; 80165; 82962; 83605; 83735; 83880; 84145; 84484; 85025; 87040; 87631; 94664; 97110; 97116; 97161; 99285; A9270; J2405; J7030; Q9967